=== PATIENT | female | born 1980 | race Caucasian/White ===

== ENCOUNTER 2016-12-13 20:26 | Inpatient (IN) | payer OTHER ==
[2016-12-13 22:26] VITALS: BMI 16.2
--- NOTE | 2016-12-13 22:42 | HP ---
COWS - Scale Resting Pulse: 1= [place] 81-100 Sweatin=Flushed/Facial Moisture Restless Observation: 3= Extraneous Movement Pupil Size: 0= Normal to Room Light Bone or Joint Aches: 2= Severe Diffuse Aches Runny Nose/ Eye Tearin= Runny Nose/Eyes GI Upset > 30mins: 2= Nausea/Diarrhea Tremor Observation: 2= Slight Tremor Visible Yawning Observation: 2= >3x During Session Anxiety or Irritability: 2=Irritable/Anxious Goose Flesh Skin: 0=Smooth Skin COWS Score: 18 Admission ROS S - HPI Chief Complaint: WITHDRAWAL SYMPTOMS Allergies/Adverse Reactions: Allergies Allergy/AdvReac Type Severity Reaction Status Date / Time peanut Allergy Severe Rash Verified 12/13/16 23:12 No Known Drug Allergies Allergy Verified 12/13/16 23:12 NKDA Allergy Uncoded 12/13/16 23:12 History of Present Illness: 36 Y.O. WOMAN WITH AN EXTENSIVE HISTORY OF DRUG AND ALCOHOL DEPENDENCE IS SEEKING DETOX. PMHx: CROHNS DISEASE, ASTHMA, UNDERWEIGHT Exam Limitations: No Limitations - Ebola screening Have you traveled outside of the country in the last 21 days: No (N) Have you had contact with anyone from an Ebola affected area: No Have you been sick,other than usual withdrawal symptoms: No Do you have a fever: No - Review of Systems Constitutional: Chills, Loss of Appetite, Changes in sleep, Unintentional Wgt. Loss EENT: reports: Blurred Vision Respiratory: reports: Wheezing Cardiac: reports: No Symptoms Reported GI: reports: Constipated, Poor Appetite : reports: No Symptoms Reported Musculoskeletal: reports: Back Pain Integumentary: reports: Other (TRACK ARCHER, BILATERAL HANDS) Neuro: reports: Seizure (ETOH RELATED), Tremors Endocrine: reports: No Symptoms Reported Hematology: reports: Anemia Psychiatric: reports: Anxious Other Systems: Reviewed and Negative Patient History - Patient Medical History Hx Anemia: No Hx Asthma: Yes Hx Chronic Obstructive Pulmonary Disease (COPD): Yes Hx Cancer: No Hx Cardiac Disorders: No Hx Congestive Heart Failure: No Hx Hypertension: No Hx Hypercholesterolemia: No Hx Pacemaker: No HX Cerebrovascular Accident: No Hx Seizures: Yes (alcohol related-last episode was more than a year ago) Hx Dementia: No Hx Diabetes: No Hx Gastrointestinal Disorders: Yes Hx Liver Disease: No Hx Genitourinary Disorders: No Hx Sexually Transmitted Disorders: No Hx Renal Disease (ESRD): No Hx Thyroid Disease: No Hx Human Immunodeficiency Virus (HIV): No Hx Hepatitis C: No Hx Depression: Yes Hx Suicide Attempt: No Hx Bipolar Disorder: No Hx Schizophrenia: No - Patient Surgical History Past Surgical History: Yes Hx Neurologic Surgery: No Hx Cataract Extraction: No Hx Cardiac Surgery: No Hx Lung Surgery: No Hx Breast Surgery: No Hx Breast Biopsy: No Hx Abdominal Surgery: Yes Hx Appendectomy: No Hx Cholecystectomy: No Hx Genitourinary Surgery: No Hx Section: Yes (in 08/11/2008) Hx Orthopedic Surgery: No Hx Hysterectomy: No Anesthesia Reaction: No - PPD History Previous Implant?: Yes Documented Results: Negative w/proof Implanted On Prior [facility] Admission?: Yes Date: 07/31/16 Results: 0 mm PPD to be Administered?: No - Reproductive History Patient is a Female of Child Bearing Age (11 -55 yrs old): Yes Last Menstrual Period: 10/11/08 Patient : No - Smoking Cessation Smoking history: Current every day smoker Have you smoked in the past 12 months: Yes Aproximately how many cigarettes per day: 20 Hx Chewing Tobacco Use: Yes Initiated information on smoking cessation: Yes 'Breaking Loose' booklet given: 12/13/16 - Substance & Tx. History Hx Alcohol Use: Yes Hx Substance Use: Yes Substance Use Type: Alcohol, Heroin Hx Substance Use Treatment: Yes (DETOX AND REHAB ) - Substances Abused Alcohol Route: Oral Frequency: No use in 30 days Amount used: 2-3 PINTS OF VODKA Age of first use: 30 Date of Last Use: 10/03/15 Heroin Route: Injection Frequency: Daily Amount used: 3-4 BAGS Age of first use: 36 Date of Last Use: 12/13/16 Family Disease History - Family Disease History Family Disease History: Diabetes: Mother, CA: Father (STOMACH) Admission Physical Exam BHS - Vital Signs Vital Signs: Vital Signs - 24 hr 12/13/16 22:22 Temperature 98.1 F Pulse Rate 81 Respiratory 20 Rate Blood Pressure 101/69 - Physical General Appearance: Yes: Disheveled, Thin, Tremorous, Irritable, Sweating, Anxious HEENTM: Yes: Hearing grossly Normal, Normal ENT Inspection, Normocephalic, Normal Voice Respiratory: Yes: Chest Non-Tender, Lungs Clear, Normal Breath Sounds, No Respiratory Distress, No Accessory Muscle Use Neck: Yes: No masses,lesions,Nodules, Trachea in good position Breast: Yes: Breast Exam Deferred Cardiology: Yes: Regular Rhythm, Regular Rate Abdominal: Yes: Non Tender, Flat, Soft Genitourinary: Yes: Within Normal Limits Back: Yes: Normal Inspection Musculoskeletal: Yes: full range of Motion, Gait Steady, Back pain Extremities: Yes: Normal Inspection, Normal Range of Motion, Non-Tender Neurological: Yes: Alert, Normal Mood/Affect, Normal Response Integumentary: Yes: Track Archer Lymphatic: Yes: Within Normal Limits - Diagnostic (1) Crohns disease Current Visit: Yes Status: Chronic Qualifiers: Gastrointestinal tract location: unspecified location Digestive disease complication type: unspecified complication Qualified Code(s): K50.919 - Crohn's disease, unspecified, with unspecified complications (2) Opioid dependence with withdrawal Current Visit: Yes Status: Chronic (3) Asthma Current Visit: Yes Status: Chronic Qualifiers: Asthma severity: mild persistent Asthma complication type: with status asthmaticus Qualified Code(s): J45.32 - Mild persistent asthma with status asthmaticus (4) COPD (chronic obstructive pulmonary disease) Current Visit: Yes Status: Chronic Qualifiers: COPD type: emphysema Emphysema type: panlobular Qualified Code(s ): J43.1 - Panlobular emphysema (5) Nicotine dependence Current Visit: No Status: Chronic Qualifiers: Nicotine product type: cigarettes Substance use status: uncomplicated Qualified Code(s): F17.210 - Nicotine dependence, cigarettes, uncomplicated (6) Undernutrition Current Visit: Yes Status: Chronic Cleared for Admission [facility] - Detox or Rehab [facility] Level of Care: Medically Managed Detox Regimen/Protocol: Methadone [facility] Breath Alcohol Content Breath Alcohol Content: 0 Urine Pregancy Test - Result Urine Test Results: Negative- NO Line Present Urine Drug Screen - Results Drug Screen Negative: No Urine Drug Screen Results: OPI-Opiates, TCA-Tricyclic Antidepress, OXY-Oxycodone
[2016-12-13] MEDS ORDERED: METHADONE HCL 10 MG TABLET (FOR DETOX USE ONLY) PO ONE ×2 (22:54→23:00)
[2016-12-13] MEDS ORDERED: IBUPROFEN 400 MG TABLET (FP) PO PRN (22:54)
[2016-12-13] MEDS ORDERED: guaiFENesin/D-METHORPHAN HB 10 ML UNIT-DOSE CUPS PO PRN (22:54)
[2016-12-13] MEDS ORDERED: MAGNESIUM CITRATE 300 ML BOTTLE PO PRN (22:54)
[2016-12-13] MEDS ORDERED: diazePAM 5 MG TABLET PO PRN (22:54)
[2016-12-13] MEDS ORDERED: MENTHOL/PHENOL 1 EACH UD MM PRN (22:54)
[2016-12-13] MEDS ORDERED: MAG HYDROX/AL HYDROX/SIMETH 30 ML UNIT-DOSE CUP PO PRN (22:54)
[2016-12-13] MEDS ORDERED: P-EPHED 60MG/TRIPROLIDI 2.5MG TABLET PO PRN (22:54)
[2016-12-13] MEDS ORDERED: ACETAMINOPHEN 325 MG TABLET (FP) PO PRN (22:54)
[2016-12-13] MEDS ORDERED: NICOTINE POLACRILEX 2 MG GUM BC PRN (22:54)
[2016-12-13] MEDS ORDERED: LOPERAMIDE HCL 2 MG CAPSULE PO PRN (22:54)
[2016-12-13] MEDS ORDERED: BISACODYL 5 MG TABLET.DR (FP) PO PRN (22:57)
[2016-12-13] MEDS ORDERED: ONDANSETRON 8 MG TABLET (FP) PO PRN (22:57)
[2016-12-14] MEDS ORDERED: METHADONE HCL 10 MG TABLET (FOR DETOX USE ONLY) PO ONE ×4 (00:51→23:00)
[2016-12-14] MEDS: diazePAM 5 MG TABLET PO PRN ×4 (01:13→22:29)
[2016-12-14] MEDS: diphenhydrAMINE HCL 50 MG CAPSULE PO PRN ×2 (01:14→23:42)
[2016-12-14 09:46] LABS: MCH 26.6 pg (25.7-33.7); MCHC 33.5 g/dl (32.0-36.0); MEAN CELL VOLUME 79.4 fl (80-96); MEAN PLT VOLUME 6.8 fl (7.5-11.1); PLATELET COUNT 336 K/MM3 (134-434); RDW 15.4 % (11.6-15.6); WHITE BLOOD COUNT 6.7 K/mm3 (4.0-10.0)
[2016-12-14] MEDS: PRENATAL VITAMINS W/ FOLIC ACID TABLET (FP) PO SCH (10:15)
[2016-12-14] MEDS: NICOTINE 21 MG/24 HOURS TOPICAL PATCH TD SCH (10:16)
[2016-12-14 10:24] LABS: ALBUMIN 3.3 g/dl (3.4-5.0); ALK PHOS 53 U/L (45-117); ANION GAP 10 (8-16); BILIRUBIN,TOTAL 0.2 mg/dL (0.2-1.0); CALCIUM 9.3 mg/dL (8.5-10.1); CO2 37 mmol/L (21-32); CREATININE 0.5 mg/dL (0.55-1.02); GLUCOSE,RANDOM 79 mg/dL (74-106); SGOT/AST 21 U/L (15-37); SGPT/ALT 16 U/L (12-78); TOT PROT 6.6 g/dl (6.4-8.2)
--- NOTE | 2016-12-14 10:49 | PN ---
BHS COWS - Scale Resting Pulse: 1= [place] 81-100 Sweatin= Chills/Flushing Restless Observation: 1= Difficult to Sit Still Pupil Size: 1= Pupils >than Normal Bone or Joint Aches: 2= Severe Diffuse Aches Runny Nose/ Eye Tearin= Runny Nose/Eyes GI Upset > 30mins: 2= Nausea/Diarrhea Tremor Observation of Outstretched Hands: 2= Slight Tremor Visible Yawning Observation: 1= 1-2x During Session Anxiety or Irritability: 2=Irritable/Anxious Goose Flesh Skin: 3=Piloerection COWS Score: 18 BHS Progress Note (SOAP) Subjective: nausea, sweats, interrupted sleep, anxiety, trmeors, body aches Objective: 12/14/16 10:48 Vital Signs - 24 hr 12/13/16 12/14/16 12/14/16 22:22 00:30 01:31 Temperature 98.1 F 98.1 F Pulse Rate 81 80 Respiratory 20 18 18 Rate Blood Pressure 101/69 100/68 12/14/16 12/14/16 12/14/16 03:30 06:14 09:30 Temperature 97.7 F 98.6 F Pulse Rate 67 83 Respiratory 18 16 20 Rate Blood Pressure 83/57 103/72 Laboratory Tests 12/14/16 12/14/16 07:00 07:00 WBC 6.7 RBC 4.08 Hgb 10.9 D Hct 32.4 MCV 79.4 L MCHC 33.5 RDW 15.4 Plt Count 336 MPV 6.8 L Sodium 138 Chloride 91 L D Carbon Dioxide 37 H D Anion Gap 10 BUN 15 D Creatinine 0.5 L Creat Clearance w eGFR > 60 Random Glucose 79 Calcium 9.3 Total Bilirubin 0.2 D AST 21 ALT 16 Alkaline Phosphatase 53 Total Protein 6.6 Albumin 3.3 L labs still pending, hypoabluminemia Assessment: 12/14/16 10:48 withdrawal sx, anorexia, cachexia and malnutirtion secondary to substance use Plan: cont detox, fluids, food supplements , dietary advice given, dietary consult.
[2016-12-14] MEDS ORDERED: POTASSIUM CHLORIDE TABS 20 MEQ TABLET.ER (FP) PO ONE (11:51)
[2016-12-14] MEDS: FERROUS GLUCONATE 324 MG TAB (FP) PO SCH ×2 (11:59→17:04)
[2016-12-14] MEDS: CYCLOBENZAPRINE HCL 10 MG TABLET (FP) PO SCH ×2 (14:01→22:26)
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
[2016-12-14 20:12] LABS: URINE APPEARANCE SLCLOUDY; URINE BILIRUBIN NEGATIVE (NEGATIVE); URINE BLOOD NEGATIVE (NEGATIVE); URINE COLOR DKYELLOW; URINE GLUCOSE (UA) NEGATIVE (NEGATIVE); URINE KETONE NEGATIVE (NEGATIVE); URINE NITRITE NEGATIVE (NEGATIVE); URINE UROBILINOGEN NEGATIVE E.U./dl (0.2-1.0)
[2016-12-14 20:19] LABS: URINE LEUK ESTERASE TRACE (NEGATIVE); URINE PROTEIN 1+ (NEGATIVE)
[2016-12-14 20:21] LABS: URINE MUCUS RARE; URINE RBC 2 /hpf (0-3); URINE WBC 5 /hpf (3-5)
[2016-12-14] MEDS: POTASSIUM CHLORIDE TABS 20 MEQ TABLET.ER (FP) PO SCH (22:26)
[2016-12-14] MEDS: THIAMINE HCL 100 MG TABLET (FP) PO SCH (22:26)
--- NOTE | 2016-12-14 23:34 | EKG ---
Test Reason : Blood Pressure : / mmHG Vent. Rate : 072 BPM Atrial Rate : 072 BPM P-R Int : 182 ms QRS Dur : 086 ms QT Int : 416 ms P-R-T Axes : 061 058 057 degrees QTc Int : 455 ms NORMAL SINUS RHYTHM NORMAL ECG NO PREVIOUS ECGS AVAILABLE Confirmed by LISSA WINN MD ([id number]) on 12/14/2016 11:34:12 PM Referred By: Confirmed By:LISSA WINN MD
[2016-12-15] MEDS: diphenhydrAMINE HCL 50 MG CAPSULE PO PRN (01:43)
[2016-12-15] MEDS: diazePAM 5 MG TABLET PO PRN ×4 (07:04→22:25)
[2016-12-15] MEDS: FERROUS GLUCONATE 324 MG TAB (FP) PO SCH ×3 (07:04→17:33)
[2016-12-15] MEDS: CYCLOBENZAPRINE HCL 10 MG TABLET (FP) PO SCH (07:04)
[2016-12-15] MEDS ORDERED: METHADONE HCL 10 MG TABLET (FOR DETOX USE ONLY) PO ONE (10:00)
[2016-12-15] MEDS ORDERED: METHADONE HCL 5 MG TABLET (FOR DETOX USE ONLY) PO ONE (10:00)
--- NOTE | 2016-12-15 10:07 | PN ---
BHS COWS - Scale Resting Pulse: 1= [place] 81-100 Sweatin=Flushed/Facial Moisture Restless Observation: 0= Sits Still Pupil Size: 0= Normal to Room Light Bone or Joint Aches: 2= Severe Diffuse Aches Runny Nose/ Eye Tearin= Nasal Congestion GI Upset > 30mins: 0= None Tremor Observation of Outstretched Hands: 2= Slight Tremor Visible Yawning Observation: 2= >3x During Session Anxiety or Irritability: 2=Irritable/Anxious Goose Flesh Skin: 3=Piloerection COWS Score: 15 BHS Progress Note (SOAP) Subjective: irritable agitation tired weak sweats Objective: 12/15/16 10:05 Vital Signs Temperature 97.9 F 12/15/16 09:36 Pulse Rate 97 H 12/15/16 09:36 Respiratory Rate 16 12/15/16 09:36 Blood Pressure 100/69 12/15/16 09:36 O2 Sat by Pulse Oximetry (%) Laboratory Tests 12/14/16 12/14/16 12/14/16 07:00 07:00 07:00 WBC 6.7 RBC 4.08 Hgb 10.9 D Hct 32.4 MCV 79.4 L MCHC 33.5 RDW 15.4 Plt Count 336 MPV 6.8 L Sodium 138 Potassium 2.8 L* D Chloride 91 L D Carbon Dioxide 37 H D Anion Gap 10 BUN 15 D Creatinine 0.5 L Creat Clearance w eGFR > 60 Random Glucose 79 Calcium 9.3 Total Bilirubin 0.2 D AST 21 ALT 16 Alkaline Phosphatase 53 Total Protein 6.6 Albumin 3.3 L Urine Color Urine Appearance Urine pH Ur Specific [place] Urine Protein Urine Glucose (UA) Urine Ketones Urine Blood Urine Nitrite Urine Bilirubin Urine Urobilinogen Ur Leukocyte Esterase Urine RBC Urine WBC Ur Epithelial Cells Urine Mucus RPR Titer Nonreactive 12/14/16 15:00 WBC RBC Hgb Hct MCV MCHC RDW Plt Count MPV Sodium Potassium Chloride Carbon Dioxide Anion Gap BUN Creatinine Creat Clearance w eGFR Random Glucose Calcium Total Bilirubin AST ALT Alkaline Phosphatase Total Protein Albumin Urine Color Dkyellow Urine Appearance Slcloudy Urine pH 9.0 H Ur Specific [place] 1.016 Urine Protein 1+ H Urine Glucose (UA) Negative Urine Ketones Negative Urine Blood Negative Urine Nitrite Negative Urine Bilirubin Negative Urine Urobilinogen Negative Ur Leukocyte Esterase Trace H D Urine RBC 2 Urine WBC 5 Ur Epithelial Cells Rare Urine Mucus Rare RPR Titer k-dur ordered for potassium replacement; repeated labs ordered awake/alert ambulating no acute distress Assessment: 12/15/16 10:06 withdrawal sx Plan: continue detox increase fluids f/u pending labs
[2016-12-15] MEDS: NICOTINE 21 MG/24 HOURS TOPICAL PATCH TD SCH (10:33)
[2016-12-15] MEDS: PRENATAL VITAMINS W/ FOLIC ACID TABLET (FP) PO SCH (10:33)
[2016-12-15] MEDS: POTASSIUM CHLORIDE TABS 20 MEQ TABLET.ER (FP) PO SCH ×2 (10:33→22:25)
[2016-12-15] MEDS: hydrOXYzine PAMOATE 50 MG CAPSULE (FP) PO PRN (10:34)
[2016-12-15] MEDS: MAGNESIUM HYDROX 2400MG/30ML ORAL SUSPENSION 30 ML CUP PO PRN ×2 (10:36→17:32)
[2016-12-15 12:59] LABS: BASOPHIL 0.7 % (0-2.0); EOSINOPHIL 4.2 % (0-4.5); MCH 26.2 pg (25.7-33.7); MCHC 33.1 g/dl (32.0-36.0); MEAN CELL VOLUME 79.1 fl (80-96); NEUTROPHILS 39.8 % (42.8-82.8); PLATELET COUNT 372 K/MM3 (134-434); RDW 15.6 % (11.6-15.6); WHITE BLOOD COUNT 6.5 K/mm3 (4.0-10.0)
[2016-12-15 13:17] LABS: ALBUMIN 3.1 g/dl (3.4-5.0); ALK PHOS 58 U/L (45-117); ANION GAP 8 (8-16); BILIRUBIN,TOTAL 0.2 mg/dL (0.2-1.0); CO2 36 mmol/L (21-32); CREATININE 0.4 mg/dL (0.55-1.02); GLUCOSE,RANDOM 74 mg/dL (74-106); SGOT/AST 19 U/L (15-37); SGPT/ALT 18 U/L (12-78); TOT PROT 6.8 g/dl (6.4-8.2)
[2016-12-15] MEDS ORDERED: diphenhydrAMINE HCL 25 MG CAPSULE (FP) PO ONE (22:24)
[2016-12-15] MEDS: THIAMINE HCL 100 MG TABLET (FP) PO SCH (22:26)
[2016-12-16] MEDS: FERROUS GLUCONATE 324 MG TAB (FP) PO SCH (08:51)
[2016-12-16] MEDS: diazePAM 5 MG TABLET PO PRN ×3 (08:52→22:11)
[2016-12-16] MEDS ORDERED: CYCLOBENZAPRINE HCL 10 MG TABLET (FP) PO PRN (09:37)
--- NOTE | 2016-12-16 09:48 | PN ---
BHS Progress Note (SOAP) Subjective: muscle spasm sweats body aches Objective: 12/16/16 09:48 Vital Signs Temperature 98.2 F 12/16/16 09:28 Pulse Rate 95 H 12/16/16 09:28 Respiratory Rate 18 12/16/16 09:28 Blood Pressure 89/61 12/16/16 09:28 O2 Sat by Pulse Oximetry (%) Laboratory Tests 12/14/16 12/14/16 12/14/16 07:00 07:00 07:00 WBC 6.7 RBC 4.08 Hgb 10.9 D Hct 32.4 MCV 79.4 L MCHC 33.5 RDW 15.4 Plt Count 336 MPV 6.8 L Neutrophils % Lymphocytes % Monocytes % Eosinophils % Basophils % Sodium 138 Potassium 2.8 L* D Chloride 91 L D Carbon Dioxide 37 H D Anion Gap 10 BUN 15 D Creatinine 0.5 L Creat Clearance w eGFR > 60 Random Glucose 79 Calcium 9.3 Total Bilirubin 0.2 D AST 21 ALT 16 Alkaline Phosphatase 53 Total Protein 6.6 Albumin 3.3 L Urine Color Urine Appearance Urine pH Ur Specific [place] Urine Protein Urine Glucose (UA) Urine Ketones Urine Blood Urine Nitrite Urine Bilirubin Urine Urobilinogen Ur Leukocyte Esterase Urine RBC Urine WBC Ur Epithelial Cells Urine Mucus RPR Titer Nonreactive 12/14/16 12/15/16 12/15/16 15:00 10:55 10:55 WBC 6.5 RBC 4.08 Hgb 10.7 Hct 32.3 L MCV 79.1 L MCHC 33.1 RDW 15.6 Plt Count 372 MPV 7.0 L Neutrophils % 39.8 L D Lymphocytes % 44.9 H D Monocytes % 10.4 H D Eosinophils % 4.2 D Basophils % 0.7 Sodium 137 Potassium 3.4 L D Chloride 93 L Carbon Dioxide 36 H Anion Gap 8 BUN 14 Creatinine 0.4 L Creat Clearance w eGFR > 60 Random Glucose 74 Calcium 9.0 Total Bilirubin 0.2 AST 19 ALT 18 Alkaline Phosphatase 58 Total Protein 6.8 Albumin 3.1 L Urine Color Dkyellow Urine Appearance Slcloudy Urine pH 9.0 H Ur Specific [place] 1.016 Urine Protein 1+ H Urine Glucose (UA) Negative Urine Ketones Negative Urine Blood Negative Urine Nitrite Negative Urine Bilirubin Negative Urine Urobilinogen Negative Ur Leukocyte Esterase Trace H D Urine RBC 2 Urine WBC 5 Ur Epithelial Cells Rare Urine Mucus Rare RPR Titer repeated labs pending awake/alert ambulating no acute distress Assessment: 12/16/16 09:49 withdrawal sx Plan: continue detox increase fluids flexiril 5mg prn motrin prn
[2016-12-16] MEDS ORDERED: METHADONE HCL 5 MG TABLET (FOR DETOX USE ONLY) PO ONE ×2 (10:00)
[2016-12-16] MEDS: PRENATAL VITAMINS W/ FOLIC ACID TABLET (FP) PO SCH (10:10)
[2016-12-16] MEDS: hydrOXYzine PAMOATE 50 MG CAPSULE (FP) PO PRN (10:11)
[2016-12-16] MEDS: NICOTINE 21 MG/24 HOURS TOPICAL PATCH TD SCH (10:11)
[2016-12-16] MEDS: POTASSIUM CHLORIDE TABS 20 MEQ TABLET.ER (FP) PO SCH ×2 (10:14→22:12)
[2016-12-16] MEDS: BACITRACIN 0.9 GM PACKET TP SCH ×2 (10:14→22:12)
[2016-12-16 10:20] LABS: CALCIUM 9.6 mg/dL (8.5-10.1)
[2016-12-16 10:22] LABS: CREATININE 0.5 mg/dL (0.55-1.02)
[2016-12-16] MEDS: ALBUTEROL SO4 6.7 GM HFA INHALER IH PRN (15:15)
[2016-12-16] MEDS: diphenhydrAMINE HCL 50 MG CAPSULE PO PRN (22:12)
[2016-12-16] MEDS: MAGNESIUM HYDROX 2400MG/30ML ORAL SUSPENSION 30 ML CUP PO PRN (22:14)
[2016-12-16] MEDS: THIAMINE HCL 100 MG TABLET (FP) PO SCH (22:55)
--- NOTE | 2016-12-17 09:34 | PN ---
S Progress Note (SOAP) Subjective: ALERT,IRRITABLE,ANXIOUS,INTERRUPTED SLEEP.ACHING PAIN Objective: 12/17/16 09:32 12/17/16 09:33 Vital Signs Temperature 97.9 F 12/17/16 06:00 Pulse Rate 62 12/17/16 06:00 Respiratory Rate 16 12/17/16 06:00 Blood Pressure 82/50 12/17/16 06:00 O2 Sat by Pulse Oximetry (%) 12/17/16 09:33 Laboratory Last Values WBC 6.5 K/mm3 (4.0-10.0) 12/15/16 10:55 RBC 4.08 M/mm3 (3.60-5.2) 12/15/16 10:55 Hgb 10.7 GM/dL (10.7-15.3) 12/15/16 10:55 Hct 32.3 % (32.4-45.2) L 12/15/16 10:55 MCV 79.1 fl (80-96) L 12/15/16 10:55 MCHC 33.1 g/dl (32.0-36.0) 12/15/16 10:55 RDW 15.6 % (11.6-15.6) 12/15/16 10:55 Plt Count 372 K/MM3 (134-434) 12/15/16 10:55 MPV 7.0 fl (7.5-11.1) L 12/15/16 10:55 Neutrophils % 39.8 % (42.8-82.8) L D 12/15/16 10:55 Lymphocytes % 44.9 % (8-40) H D 12/15/16 10:55 Monocytes % 10.4 % (3.8-10.2) H D 12/15/16 10:55 Eosinophils % 4.2 % (0-4.5) D 12/15/16 10:55 Basophils % 0.7 % (0-2.0) 12/15/16 10:55 Sodium 136 mmol/L (136-145) 12/16/16 06:45 Potassium 3.9 mmol/L (3.5-5.1) 12/16/16 06:45 Chloride 92 mmol/L (98-107) L 12/16/16 06:45 Carbon Dioxide 38 mmol/L (21-32) H 12/16/16 06:45 Anion Gap 6 (8-16) L 12/16/16 06:45 BUN 14 mg/dL (7-18) 12/16/16 06:45 Creatinine 0.5 mg/dL (0.55-1.02) L D 12/16/16 06:45 Creat Clearance w eGFR > 60 (>60) 12/15/16 10:55 Random Glucose 79 mg/dL (74-106) 12/16/16 06:45 Calcium 9.6 mg/dL (8.5-10.1) 12/16/16 06:45 Total Bilirubin 0.2 mg/dL (0.2-1.0) 12/15/16 10:55 AST 19 U/L (15-37) 12/15/16 10:55 ALT 18 U/L (12-78) 12/15/16 10:55 Alkaline Phosphatase 58 U/L (45-117) 12/15/16 10:55 Total Protein 6.8 g/dl (6.4-8.2) 12/15/16 10:55 Albumin 3.1 g/dl (3.4-5.0) L 12/15/16 10:55 Urine Color Dkyellow 12/14/16 15:00 Urine Appearance Slcloudy 12/14/16 15:00 Urine pH 9.0 (5.0-8.0) H 12/14/16 15:00 Ur Specific [place] 1.016 (1.001-1.035) 12/14/16 15:00 Urine Protein 1+ (NEGATIVE) H 12/14/16 15:00 Urine Glucose (UA) Negative (NEGATIVE) 12/14/16 15:00 Urine Ketones Negative (NEGATIVE) 12/14/16 15:00 Urine Blood Negative (NEGATIVE) 12/14/16 15:00 Urine Nitrite Negative (NEGATIVE) 12/14/16 15:00 Urine Bilirubin Negative (NEGATIVE) 12/14/16 15:00 Urine Urobilinogen Negative E.U./dl (0.2-1.0) 12/14/16 15:00 Ur Leukocyte Esterase Trace (NEGATIVE) H D 12/14/16 15:00 Urine RBC 2 /hpf (0-3) 12/14/16 15:00 Urine WBC 5 /hpf (3-5) 12/14/16 15:00 Ur Epithelial Cells Rare /hpf (FEW) 12/14/16 15:00 Urine Mucus Rare 12/14/16 15:00 RPR Titer Nonreactive (NONREACTIVE) 12/14/16 07:00 Assessment: 12/17/16 09:34 WITHDRAWAL SYMPTOM Plan: CONTINUE DETOX
[2016-12-17] MEDS ORDERED: METHADONE HCL 5 MG TABLET (FOR DETOX USE ONLY) PO ONE (10:00)
[2016-12-17] MEDS ORDERED: METHADONE HCL 10 MG TABLET (FOR DETOX USE ONLY) PO ONE (10:00)
[2016-12-17] MEDS: BACITRACIN 0.9 GM PACKET TP SCH (10:40)
[2016-12-17] MEDS: NICOTINE 21 MG/24 HOURS TOPICAL PATCH TD SCH (10:40)
[2016-12-17] MEDS: hydrOXYzine PAMOATE 50 MG CAPSULE (FP) PO PRN (10:40)
[2016-12-17] MEDS: POTASSIUM CHLORIDE TABS 20 MEQ TABLET.ER (FP) PO SCH (10:40)
[2016-12-17] MEDS: PRENATAL VITAMINS W/ FOLIC ACID TABLET (FP) PO SCH (10:40)
[2016-12-17] MEDS: ALBUTEROL SO4 6.7 GM HFA INHALER IH PRN (11:42)
--- NOTE | 2016-12-17 14:19 | PN ---
S Progress Note Note: patient did not want to complete treatment,signed release ama,did not want to wait
[2016-12-17 14:20] VITALS: BP 97/54; PULSE 107; TEMP 97.3
--- NOTE | 2016-12-17 14:24 | DS ---
[facility] Detox Discharge Summary Admission Date: 12/13/16 Discharge Date: 12/17/16 - History Present History: Alcohol Dependence, Opioid Dependence Additional Comments: patient did not want to complete treatment,signed release ama,did not want to wait,seen by counselor, Pertinent Past History: gerd crohn dissease weight loss seizure - Physical Exam Results Vital Signs: Vital Signs Temperature 96.4 F L 12/17/16 11:15 Pulse Rate 87 12/17/16 11:15 Respiratory Rate 18 12/17/16 11:15 Blood Pressure 127/59 12/17/16 11:15 O2 Sat by Pulse Oximetry (%) Pertinent Admission Physical Exam Findings: withdrawal symptom - Treatment Patient has Accepted a Rehab Referral to: declined - Medication Discharge Medications: Ambulatory Orders Albuterol Sulfate Inhaler - [Ventolin Hfa Inhaler -] 1 - 2 inh PO QID 12/13/16 Zolpidem Tartrate [Ambien] 10 mg PO HS 12/13/16 - Diagnosis (1) Alcohol dependence with uncomplicated withdrawal Current Visit: Yes Status: Acute (2) Nicotine dependence Current Visit: Yes Status: Acute Qualifiers: Nicotine product type: cigarettes Substance use status: uncomplicated Qualified Code(s): F17.210 - Nicotine dependence, cigarettes, uncomplicated (3) Opioid dependence with withdrawal Current Visit: Yes Status: Acute (4) Asthma Current Visit: Yes Status: Chronic Qualifiers: Asthma severity: mild persistent Asthma complication type: with status asthmaticus Qualified Code(s): J45.32 - Mild persistent asthma with status asthmaticus (5) COPD (chronic obstructive pulmonary disease) Current Visit: Yes Status: Chronic Qualifiers: COPD type: emphysema Emphysema type: panlobular Qualified Code(s ): J43.1 - Panlobular emphysema (6) Chronic back pain Current Visit: Yes Status: Chronic Qualifiers: Back pain location: low back pain Back pain laterality: bilateral Sciatica presence: without sciatica Qualified Code(s): M54.5 - Low back pain; G89.29 - Other chronic pain (7) Crohns disease Current Visit: Yes Status: Chronic Qualifiers: Gastrointestinal tract location: unspecified location Digestive disease complication type: unspecified complication Qualified Code(s): K50.919 - Crohn's disease, unspecified, with unspecified complications (8) Weight loss Current Visit: No Status: Acute (9) Seizure Current Visit: No Status: Chronic - AMA Did Patient Leave Against Medical Advice: Yes
[2016-12-18] MEDS ORDERED: METHADONE HCL 5 MG TABLET (FOR DETOX USE ONLY) PO ONE (06:00)
[2016-12-18] MEDS ORDERED: METHADONE HCL 10 MG TABLET (FOR DETOX USE ONLY) PO ONE (10:00)
[2016-12-19] MEDS ORDERED: METHADONE HCL 5 MG TABLET (FOR DETOX USE ONLY) PO ONE (06:00)
== END 2016-12-17 02:22 | disposition left against medical advice (07) | DRG 770 ==
LOC: YASAS 20:26 → Y6N 23:06
PROVIDERS: ADMIT Internal Medicine Addiction Medicine; ATTEND Internal Medicine Addiction Medicine
PROC: HZ2ZZZZ Detoxification Services for Substance Abuse Treatment (ICD-10-PCS; principal; 2016-12-17)
DX: F11.23 Opioid dependence with withdrawal (principal); F10.230 Alcohol dependence with withdrawal, uncomplicated; F17.210 Nicotine dependence, cigarettes, uncomplicated; J45.32 Mild persistent asthma with status asthmaticus; J43.1 Panlobular emphysema; K50.919 Crohn's disease, unspecified, with unspecified complications; M54.5 Low back pain; G89.29 Other chronic pain; Z86.69 Personal history of other diseases of the nervous system and sense organs; R63.4 Abnormal weight loss; Z68.20 Body mass index [BMI] 20.0-20.9, adult
CPT/HCPCS: 36415; 80048; 80053; 81003; 81015; 85025; 85027; 86593; 93005; 93010

== ENCOUNTER 2017-01-24 14:43 | Inpatient (IN) | payer OTHER ==
[2017-01-24 14:53] VITALS: BMI 16.9
--- NOTE | 2017-01-24 14:55 | PDOC ---
Rapid Medical Evaluation Time Seen by Provider: 01/24/17 14:49 Medical Evaluation: Allergies Allergy/AdvReac Type Severity Reaction Status Date / Time peanut Allergy Severe Rash Verified 12/13/16 23:12 No Known Drug Allergies Allergy Verified 12/13/16 23:12 NKDA Allergy Uncoded 12/13/16 23:12 o I have performed a brief in-person evaluation of this patient. o The patient presents with a chief complaint of: abscesses on b/l arms and foot; injects heroin into those sites; wants detox as well o Pertinent physical exam findings: hard, erythematous abscess to b/l antecubital spaces, R worse than L. No streaking. o I have ordered the following: labs, hcg, UA, utox, wound culture o The patient will proceed to the ED for further evaluation.
[2017-01-24 15:55] LABS: URINE MARIJUANA THC NEGATIVE ng/ml (CUTOFF=50)
[2017-01-24 16:01] LABS: ALBUMIN 3.7 g/dl (3.4-5.0); ANION GAP 10 (8-16); CALCIUM 9.2 mg/dL (8.5-10.1); CO2 38 mmol/L (21-32); CREATININE 0.6 mg/dL (0.55-1.02); GLUCOSE,RANDOM 99 mg/dL (74-106); SGPT/ALT 14 U/L (12-78)
[2017-01-24 16:03] LABS: ALK PHOS 66 U/L (45-117); BILIRUBIN,TOTAL 0.3 mg/dL (0.2-1.0); TOT PROT 8.3 g/dl (6.4-8.2)
[2017-01-24 16:04] LABS: SGOT/AST 24 U/L (15-37)
[2017-01-24 16:34] LABS: URINE APPEARANCE CLOUDY; URINE BILIRUBIN NEGATIVE (NEGATIVE); URINE BLOOD NEGATIVE (NEGATIVE); URINE COLOR YELLOW; URINE GLUCOSE (UA) NEGATIVE (NEGATIVE); URINE KETONE NEGATIVE (NEGATIVE); URINE LEUK ESTERASE NEGATIVE (NEGATIVE); URINE NITRITE NEGATIVE (NEGATIVE); URINE PROTEIN NEGATIVE (NEGATIVE); URINE UROBILINOGEN NEGATIVE E.U./dl (0.2-1.0)
[2017-01-24] MEDS ORDERED: CLINDAMYCIN 600MG PREMIX IVPB 50 ML IVPB ONE (16:36)
[2017-01-24 16:39] LABS: BASOPHIL 0.3 % (0-2.0); EOSINOPHIL 2.2 % (0-4.5); MCH 26.6 pg (25.7-33.7); MCHC 32.9 g/dl (32.0-36.0); MEAN CELL VOLUME 80.9 fl (80-96); MEAN PLT VOLUME 7.8 fl (7.5-11.1); NEUTROPHILS 60.3 % (42.8-82.8); PLATELET COUNT 433 K/MM3 (134-434); RDW 15.2 % (11.6-15.6); WHITE BLOOD COUNT 11.2 K/mm3 (4.0-10.0)
[2017-01-24] MEDS ORDERED: VANCOMYCIN 1,000 MG in DEXTROSE 5%-WATER - 250 ML IVPB ONE (16:46)
--- NOTE | 2017-01-24 16:46 | PDOC ---
History of Present Illness - General Chief Complaint: Wound Infection Stated Complaint: INFECTION/ OPEN WOUNDS, ABSCESS (DETOX) Time Seen by Provider: 01/24/17 14:49 History Source: Patient - History of Present Illness Timing/Duration: reports: week Location: reports: extremities Past History - Past Medical History Allergies/Adverse Reactions: Allergies Allergy/AdvReac Type Severity Reaction Status Date / Time peanut Allergy Severe Rash Verified 01/24/17 14:53 No Known Drug Allergies Allergy Verified 01/24/17 14:53 NKDA Allergy Uncoded 01/24/17 14:53 Home Medications: Ambulatory Orders Albuterol Sulfate Inhaler - [Ventolin Hfa Inhaler -] 1 - 2 inh PO QID 12/13/16 Zolpidem Tartrate [Ambien] 30 mg PO HS 12/13/16 Diazepam [Valium] 0 mg PO PRN 01/24/17 Anemia: No Asthma: Yes Cancer: No Cardiac Disorders: No CVA: No COPD: Yes CHF: No Dementia: No Diabetes: No GI Disorders: Yes Disorders: No HTN: No Hypercholesterolemia: No Kidney Stones: No Liver Disease: No Suicide Attempt (Hx): No Seizures: Yes (alcohol related-last episode was more than a year ago) Thyroid Disease: No - Surgical History Abdominal Surgery: Yes Appendectomy: No Cardiac Surgery: No Cholecystectomy: No Lung Surgery: No Neurologic Surgery: No Orthopedic Surgery: No - Reproductive History PID: No - Psycho/Social/Smoking Cessation Hx Anxiety: No Suicidal Ideation: No Smoking History: Never smoked Have you smoked in the past 12 months: Yes Number of Cigarettes Smoked Daily: 20 Information on smoking cessation initiated: No 'Breaking Loose' booklet given: 12/13/16 Hx Alcohol Use: Yes Drug/Substance Use Hx: Yes Substance Use Type: Alcohol, Heroin Hx Substance Use Treatment: Yes (DETOX AND REHAB ) Review of Systems - Review of Systems Constitutional: No: Chills, Fever Integumentary: Yes: Erythema *Physical Exam - Vital Signs Last Vital Signs Temp Pulse Resp BP Pulse Ox 98.4 F 100 H 18 101/76 97 01/24/17 14:46 01/24/17 14:46 01/24/17 14:46 01/24/17 14:46 01/24/17 14:46 - Physical Exam General Appearance: Yes: Appropriately Dressed. No: Apparent Distress HEENT: positive: Normal Voice Neck: positive: Supple Respiratory/Chest: negative: Respiratory Distress Integumentary: positive: Dry, Warm, Other (red, hot tender induration to antecub b/l, R>>L, ?fluctuance on the R, no diffuse joint swelling and FROMI b/ l without any sig pain) Neurologic: positive: Fully Oriented, Alert, Normal Mood/Affect ED Treatment Course - LABORATORY CBC & Chemistry Diagram: 01/24/17 15:30 01/24/17 15:30 - ADDITIONAL ORDERS Additional order review: Laboratory Results 01/24/17 01/24/17 01/24/17 15:30 15:30 15:30 Sodium 137 Potassium 3.2 L Chloride 89 L Carbon Dioxide 38 H Anion Gap 10 BUN 19 H D Creatinine 0.6 Creat Clearance w eGFR > 60 Random Glucose 99 D Calcium 9.2 Total Bilirubin 0.3 D AST 24 D ALT 14 D Alkaline Phosphatase 66 Total Protein 8.3 H D Albumin 3.7 Urine Color Yellow Urine Appearance Cloudy Urine pH 9.0 H Ur Specific [place] 1.027 Urine Protein Negative Urine Glucose (UA) Negative Urine Ketones Negative Urine Blood Negative Urine Nitrite Negative Urine Bilirubin Negative Urine Urobilinogen Negative Ur Leukocyte Esterase Negative Opiates Screen Positive Methadone Screen Negative Barbiturate Screen Negative Phencyclidine Screen Negative Ur Amphetamines Screen Negative MDMA (Ecstasy) Screen Negative Benzodiazepines Screen Negative Cocaine Screen Negative U Marijuana (THC) Screen Negative - RADIOLOGY Radiology Studies Ordered: Category Date Time Status ELBOW-LEFT [RAD] Stat Radiology 01/24/17 16:34 Ordered ELBOW-RIGHT [RAD] Stat Radiology 01/24/17 16:31 Ordered Medical Decision Making - Medical Decision Making 01/24/17 16:43 36 yo F, active heroin user, p/w multiple abscesses to site of needle injection. Pt reports that she developed R elbow abscess 1 week ago and has been squeezing pus from site. At some point developed abscess to L elbow as well. Admits that she continues to inject sites even after abscess formation because she has "ran out of veins". Denies f/c. Pt also req detox See exam IVDU w/ multiple abscesses to site of injection Mild tachycardia in ED w/ red, hot, indurations to antecub fossa of b/l elbows, R>>L, no obvious e/o joint involvement at this time -pain control -IV abx -admit -d/w onsite case manager to possibly give methadone to prevent withdrawal while inhouse 01/24/17 16:48 01/24/17 16:57 01/24/17 17:03 Case d/w Dr Robles who rec placing consult to detox physician Dr Mendez 01/24/17 17:15 01/24/17 18:15 *DC/Admit/Observation/Transfer Diagnosis at time of Disposition: Abscess - Discharge Dispostion Condition at time of disposition: Fair Admit: Yes
[2017-01-24] MEDS ORDERED: PIPERACILLIN/TAZOB 3.375 GM/50 ML PRE-DOCKED IV ONE (16:47)
[2017-01-24] MEDS ORDERED: LORAZEPAM CARPU-JECT 2 MG/ML DISP.SYRIN IVPUSH ONE (17:00)
[2017-01-24] MEDS ORDERED: LORAZEPAM CARPU-JECT 2 MG/ML DISP.SYRIN ONE (17:11)
[2017-01-24] MEDS ORDERED: PIPERACILLIN/TAZOB 3.375 GM 50 ML IVPB ONE (17:12)
[2017-01-24] MEDS ORDERED: VANCOMYCIN 1 GRAM (PRE-DOCKED) 250 ML IVPB ONE (17:12)
[2017-01-24] MEDS ORDERED: KETOROLAC TROMETHAMINE 30 MG/1 ML VIAL IVPUSH ONE (17:16)
[2017-01-24] MEDS ORDERED: POTASSIUM CHLORIDE TABS 20 MEQ TABLET.ER (FP) PO ONE ×2 (18:03→18:27)
[2017-01-24] MEDS ORDERED: KETOROLAC TROMETHAMINE 30 MG/1 ML VIAL ONE (18:08)
--- NOTE | 2017-01-24 19:54 | HP ---
Admitting History and Physical - Primary Care Physician PCP: Dorothy Robles - Admission History of Present Illness: 36 yo F, active heroin user, p/w multiple abscesses to site of needle injection. Pt reports that she developed R elbow abscess 1 week ago and has been squeezing pus from site. At some point developed abscess to L elbow as well. Admits that she continues to inject sites even after abscess formation because she has "ran out of veins". used to take methadone - Past Medical History ...LMP: 10/11/08 - Smoking History Smoking history: Never smoked Have you smoked in the past 12 months: Yes Aproximately how many cigarettes per day: 20 - Alcohol/Substance Use Hx Alcohol Use: Yes History of Substance Use: reports: Heroin Home Medications - Allergies Allergies/Adverse Reactions: Allergies Allergy/AdvReac Type Severity Reaction Status Date / Time peanut Allergy Severe Rash Verified 01/24/17 14:53 No Known Drug Allergies Allergy Verified 01/24/17 14:53 NKDA Allergy Uncoded 01/24/17 14:53 - Home Medications Home Medications: Ambulatory Orders Albuterol Sulfate Inhaler - [Ventolin Hfa Inhaler -] 1 - 2 inh PO QID 12/13/16 Zolpidem Tartrate [Ambien] 30 mg PO HS 12/13/16 Diazepam [Valium] 0 mg PO PRN 01/24/17 Family Disease History - Family Disease History Family Disease History: Diabetes: Mother, CA: Father (STOMACH) Physical Examination Vital Signs: Vital Signs Temperature 98.4 F 01/24/17 14:46 Pulse Rate 91 H 01/24/17 18:21 Respiratory Rate 19 01/24/17 18:21 Blood Pressure 96/58 01/24/17 18:21 O2 Sat by Pulse Oximetry (%) 100 01/24/17 18:21 Constitutional: Yes: Anxious HENT: Yes: Atraumatic Cardiovascular: Yes: Regular Rate and Rhythm Respiratory: Yes: CTA Bilaterally Gastrointestinal: Yes: Normal Bowel Sounds Extremities: Yes: Other (right forearm c/antecubital fossa cellulitis) Neurological: Yes: Alert, Oriented Problem List - Problems (1) Abscess Code(s): L02.91 - CUTANEOUS ABSCESS, UNSPECIFIED (2) Alcohol dependence with uncomplicated withdrawal Code(s): F10.230 - ALCOHOL DEPENDENCE WITH WITHDRAWAL, UNCOMPLICATED (3) Opioid dependence with withdrawal Code(s): F11.23 - OPIOID DEPENDENCE WITH WITHDRAWAL Assessment/Plan Laboratory Tests 01/24/17 01/24/17 01/24/17 15:30 15:30 15:30 WBC 11.2 H D RBC 4.32 Hgb 11.5 Hct 34.9 MCV 80.9 MCHC 32.9 RDW 15.2 Plt Count 433 MPV 7.8 D Neutrophils % 60.3 D Lymphocytes % 30.3 D Monocytes % 6.9 Eosinophils % 2.2 Basophils % 0.3 Sodium 137 Potassium 3.2 L Chloride 89 L Carbon Dioxide 38 H Anion Gap 10 BUN 19 H D Creatinine 0.6 Creat Clearance w eGFR > 60 Random Glucose 99 D Calcium 9.2 Total Bilirubin 0.3 D AST 24 D ALT 14 D Alkaline Phosphatase 66 Total Protein 8.3 H D Albumin 3.7 Urine Color Yellow Urine Appearance Cloudy Urine pH 9.0 H Ur Specific [place] 1.027 Urine Protein Negative Urine Glucose (UA) Negative Urine Ketones Negative Urine Blood Negative Urine Nitrite Negative Urine Bilirubin Negative Urine Urobilinogen Negative Ur Leukocyte Esterase Negative Urine HCG, Qual Negative Opiates Screen Methadone Screen Barbiturate Screen Phencyclidine Screen Ur Amphetamines Screen MDMA (Ecstasy) Screen Benzodiazepines Screen Cocaine Screen U Marijuana (THC) Screen 01/24/17 15:30 WBC RBC Hgb Hct MCV MCHC RDW Plt Count MPV Neutrophils % Lymphocytes % Monocytes % Eosinophils % Basophils % Sodium Potassium Chloride Carbon Dioxide Anion Gap BUN Creatinine Creat Clearance w eGFR Random Glucose Calcium Total Bilirubin AST ALT Alkaline Phosphatase Total Protein Albumin Urine Color Urine Appearance Urine pH Ur Specific [place] Urine Protein Urine Glucose (UA) Urine Ketones Urine Blood Urine Nitrite Urine Bilirubin Urine Urobilinogen Ur Leukocyte Esterase Urine HCG, Qual Opiates Screen Positive Methadone Screen Negative Barbiturate Screen Negative Phencyclidine Screen Negative Ur Amphetamines Screen Negative MDMA (Ecstasy) Screen Negative Benzodiazepines Screen Negative Cocaine Screen Negative U Marijuana (THC) Screen Negative 1.cellulits in ivd user..injects heroine iv abx id consult detox consult prn ativan for withdrawl dvt ppx
[2017-01-24] MEDS ORDERED: ACETAMINOPHEN 325 MG TABLET (FP) PO PRN (19:55)
[2017-01-24] MEDS ORDERED: MAG HYDROX/AL HYDROX/SIMETH 30 ML UNIT-DOSE CUP ONE (21:23)
[2017-01-24 21:26] VITALS: BP 125/75; PULSE 104; TEMP 98.6
[2017-01-24] MEDS ORDERED: HEPARIN NA (PORCINE) 5,000 UNITS/ML 1ML VIAL SQ SCH (22:00)
[2017-01-25] MEDS ORDERED: PIPERACILLIN/TAZOB 3.375 GM 50 ML IVPB SCH (02:00)
[2017-01-25 06:12] LABS: BASOPHIL 0.5 % (0-2.0); MCH 26.7 pg (25.7-33.7); MCHC 33.4 g/dl (32.0-36.0); MEAN PLT VOLUME 7.4 fl (7.5-11.1); NEUTROPHILS 64.2 % (42.8-82.8); PLATELET COUNT 355 K/MM3 (134-434); RDW 15.3 % (11.6-15.6); WHITE BLOOD COUNT 9.6 K/mm3 (4.0-10.0)
[2017-01-25 06:36] LABS: ALBUMIN 3.3 g/dl (3.4-5.0); ALK PHOS 56 U/L (45-117); ANION GAP 11 (8-16); BILIRUBIN,TOTAL 0.2 mg/dL (0.2-1.0); CALCIUM 8.8 mg/dL (8.5-10.1); CO2 37 mmol/L (21-32); CREATININE 0.7 mg/dL (0.55-1.02); GLUCOSE,RANDOM 149 mg/dL (74-106); SGOT/AST 14 U/L (15-37); SGPT/ALT 12 U/L (12-78); TOT PROT 7.3 g/dl (6.4-8.2)
--- NOTE | 2017-01-25 14:50 | DS ---
Physical Examination Vital Signs: Vital Signs Temperature 98.6 F 01/24/17 21:24 Pulse Rate 104 H 01/24/17 21:24 Respiratory Rate 20 01/24/17 21:24 Blood Pressure 125/75 01/24/17 21:24 O2 Sat by Pulse Oximetry (%) 99 01/24/17 21:24 Labs: CBC, BMP 01/25/17 05:25 01/25/17 05:25 Discharge Summary Reason For Visit: ABSCESS Current Active Problems Abscess (Acute) Alcohol dependence with uncomplicated withdrawal (Acute) Condition: Fair - Instructions Disposition: ELOPED - Home Medications Comprehensive Discharge Medication List: Ambulatory Orders Albuterol Sulfate Inhaler - [Ventolin Hfa Inhaler -] 1 - 2 inh PO QID 12/13/16 Zolpidem Tartrate [Ambien] 30 mg PO HS 12/13/16 Diazepam [Valium] 0 mg PO PRN 01/24/17 ELOPED
== END 2017-01-24 23:46 | disposition left against medical advice (07) | DRG 383 ==
LOC: JER 14:43 → JERBED 17:13
PROVIDERS: ADMIT Internal Medicine; ATTEND Internal Medicine
DX: L02.511 Cutaneous abscess of right hand (principal); F10.230 Alcohol dependence with withdrawal, uncomplicated; F11.23 Opioid dependence with withdrawal; L03.113 Cellulitis of right upper limb
CPT/HCPCS: 36415; 71020-TC; 73070-TC-LT; 73070-TC-RT; 80053; 80307; 81003; 84703; 85025; 99282-25

== ENCOUNTER 2017-01-25 01:27 | Inpatient (IN) | payer OTHER ==
--- NOTE | 2017-01-25 01:50 | PDOC ---
*Physical Exam - Vital Signs Last Vital Signs Temp Pulse Resp BP Pulse Ox 98.9 F 86 20 90/60 99 01/25/17 01:44 01/25/17 01:44 01/25/17 01:44 01/25/17 01:44 01/25/17 01:44 Medical Decision Making - Medical Decision Making 01/25/17 01:49 Pt returns for admission after she left from the floor. [employer] called and pt returned with EMS. *DC/Admit/Observation/Transfer Diagnosis at time of Disposition: Abscess, Alcohol dependence with uncomplicated withdrawal - Discharge Dispostion Condition at time of disposition: Stable Admit: Yes
[2017-01-25 02:40] VITALS: BMI 36.3
--- NOTE | 2017-01-25 03:55 | HOSP ---
Subjective - Review of Symptoms Subjective: 01/25/2017 3:30am I was paged by the nurse and informed me that patient is insisting she needs Methadone. Immediately went to assess the patient. Initially patient came in to the ED with abscess on the forearm due to IV drug use. After few hours, she left home with the Heplock. Electric Installer went to her house to bring her back. Patient was sent from the ED to the 6th floor. Patient has been asking for Methadone and Valium for her withdrawals. As per the patient, she went home from the ED and injected heroine as she was in withdrawals. Patient mentions that she is feeling "sick" When asked to describe it, she said "My whole body hurts and I want methadone" Call placed to Dr. Robles and informed her that patient came back to the hospital and is in the 6th floor. Dr. Robles recommended: to admit her in Med- surg/ ID consult, Dr. Niko Shipman consult, Tylenol 650mg Q6H PRN, IV Ativan 1mg Q4H PRN. Spoke with the patient and she insisted to get Methadone or else she would leave the hospital. Explained to her that she needs to wait until morning so we could have Dr. Niko Shipman prescribe Methadone. Patient started crying and shouting saying that she needs medication to help her sleep (Takes Xanax given by her friend); Has COPD takes medication. I explained to the patient that she is admitted in the hospital to get treatment for an abscess, needs IV antibiotics. Patient said " I don't care about my infection when I am withdrawing, all I need is Methadone" When I explained to her that the only thing she can get is Ativan 1mg at this time, she started crying and said it doesn't help her at all. Patient signed the papers to leave against medical advice. Patient has been explained in depth about the risk of leaving including but not limited to sepsis secondary to the abscess, sudden cardiac or even overdose of drugs. Case discussed with Dr. Lewis and Dr. Robles. Physical Examination Vital Signs: Vital Signs Temperature 97.2 F L 01/25/17 01:50 Pulse Rate 89 01/25/17 01:50 Respiratory Rate 10 L 01/25/17 01:50 Blood Pressure 102/70 01/25/17 01:50 O2 Sat by Pulse Oximetry (%) 99 03/14/17 01:44 Visit type - Emergency Visit Emergency Visit: Yes ED Registration Date: 01/25/17 Care time: The patient presented to the Emergency Department on the above date and was hospitalized for further evaluation of their emergent condition. - New Patient This patient is new to me today: Yes Date on this admission: 01/25/17 - Critical Care Critical Care patient: No
[2017-01-25 08:38] VITALS: BP 91/64; PULSE 92; TEMP 98.4
--- NOTE | 2017-01-25 14:51 | DS ---
Physical Examination Vital Signs: Vital Signs Temperature 98.4 F 01/25/17 08:00 Pulse Rate 92 H 01/25/17 08:00 Respiratory Rate 16 01/25/17 08:00 Blood Pressure 91/64 01/25/17 08:00 O2 Sat by Pulse Oximetry (%) 99 01/25/17 01:44 Discharge Summary Reason For Visit: ABSCESS, ETOH DEPENDENCE W UNCOMPLICATED WITHDRAWL Current Active Problems Abscess (Acute) Alcohol dependence with uncomplicated withdrawal (Acute) - Instructions Disposition: AGAINST MEDICAL ADVICE - Home Medications Comprehensive Discharge Medication List: Ambulatory Orders Albuterol Sulfate Inhaler - [Ventolin Hfa Inhaler -] 1 - 2 inh PO QID 12/13/16 Zolpidem Tartrate [Ambien] 30 mg PO HS 12/13/16 Diazepam [Valium] 0 mg PO PRN 01/24/17 signed out ama
== END 2017-01-25 09:39 | disposition left against medical advice (07) | DRG 383 ==
LOC: JER 01:27 → JERBED 01:50 → J6S 02:27
PROVIDERS: ADMIT Internal Medicine; ATTEND Internal Medicine
DX: L02.419 Cutaneous abscess of limb, unspecified (principal); J44.9 Chronic obstructive pulmonary disease, unspecified; F10.230 Alcohol dependence with withdrawal, uncomplicated
CPT/HCPCS: 99281-25

== ENCOUNTER 2017-01-26 16:14 | Inpatient (IN) | payer OTHER ==
[2017-01-26 16:29] VITALS: BMI 16.4
--- NOTE | 2017-01-26 16:33 | PDOC ---
Rapid Medical Evaluation Time Seen by Provider: 01/26/17 16:25 Medical Evaluation: 01/26/17 16:26 I have performed a brief in-person evaluation of this patient. This is a 36 yo RHD F who left the hospital AMA yesterday She has a history of COPD, Asthma, Heroin abuse She was admitted for IV abx due to bilateral anticubetal fossa abscesses She states that she left because the ID doctor was not present to see her yesterday, she was told that she would be sent to detox but couldn't go until medically cleared She left due to pain, and went home She thinks the abscesses have re sealed and are enlarging Pertinent physical exam findings: Bilateral antecubital fossa swelling, mild erythema, tenderness to mild palpation I have ordered the following: cbc, cmp, cultures this patient is a difficult IV access and blood draw The patient will proceed to the ED for further evaluation. Please note, if charts are not merged, pt records under Eduard Conway 01/26/17 16:34
[2017-01-26 17:36] LABS: BASOPHIL 0.5 % (0-2.0); EOSINOPHIL 1.6 % (0-4.5); MCH 26.8 pg (25.7-33.7); MCHC 33.3 g/dl (32.0-36.0); MEAN CELL VOLUME 80.4 fl (80-96); NEUTROPHILS 64.9 % (42.8-82.8); PLATELET COUNT 430 K/MM3 (134-434); RDW 15.4 % (11.6-15.6); WHITE BLOOD COUNT 10.8 K/mm3 (4.0-10.0)
[2017-01-26] MEDS ORDERED: LORazepam 1 MG TABLET PO ONE (17:40)
[2017-01-26] MEDS ORDERED: LORazepam 0.5 MG TABLET ONE (17:43)
--- NOTE | 2017-01-26 17:51 | PDOC ---
History of Present Illness - General History Source: Patient Exam Limitations: No Limitations - History of Present Illness Initial Comments: CHIEF COMPLAINT: 36 y/o afebrile female with PMH COPD, asthma, heroin abuse returned after eloping yesterday for abscesses on her arms. HISTORY OF PRESENT ILLNESS: The patient was admitted on 01/24/17 under the name "Eduard Conway" and she admits this to me today. She was admitted for treatment of b/l antecubital abscesses. She left the hospital after she didn't get Methadone with her heplock in place. The police went to her house and brought her back to the ER, at which time she was admitted again. After being told she wouldn't be able to get Methadone until the morning she signed out AMA. She is here again for abscesses and for detox. Vital signs on arrival are within normal limits. REVIEW OF SYSTEMS: GENERAL/CONSTITUTIONAL: No fever/chills. No weakness. No weight change. HEAD, EYES, EARS, NOSE AND THROAT: No change in vision. No ear pain or discharge. No sore throat. CARDIOVASCULAR: No chest pain or shortness of breath. RESPIRATORY: No cough, wheezing, or hemoptysis. GASTROINTESTINAL: No abd pain, nausea, vomiting, diarrhea. GENITOURINARY: No dysuria, frequency, or change in urination. MUSCULOSKELETAL: No joint or muscle swelling or pain. No neck or back pain. SKIN: +abscesses on both arms. NEUROLOGIC: No headache, vertigo, loss of consciousness, or loss of sensation. PSYCHIATRIC: +anxiety. PHYSICAL EXAM: GENERAL: The patient is awake, alert, and fully oriented, in no acute distress. She is actively crying. HEAD: Normal with no signs of trauma. ENT: Pupils equal, round and reactive to light, extraocular movements intact, sclera anicteric, conjunctiva clear. Neck supple. LUNGS: Clear to auscultation bilaterally. Normal excursion. No respiratory distress or use of accessory muscles. CV: RRR, S1/S2, no MRG. Cap refill < 2 sec. ABDOMEN: Soft, non-distended, non-tender even to deep palpation, no hepatomegaly or splenomegaly, no masses. EXTREMITIES: Normal range of motion, no edema. NEUROLOGICAL: Normal speech, normal gait. CN II-XII grossly intact. PSYCH: Normal mood, normal affect. SKIN: Warm, erythematous, abscesses in b/l antecubital fossa, R worse than left , that are TTP. No streaking. <Zofia Leon - Last Filed: 01/26/17 18:21> <Sherley Gordon - Last Filed: 01/28/17 08:58> - General Chief Complaint: Abscess Boil Stated Complaint: INFECTION Time Seen by Provider: 01/26/17 16:25 Past History - Past Medical History Asthma: Yes COPD: Yes - Psycho/Social/Smoking Cessation Hx Suicidal Ideation: No Smoking History: Current every day smoker Number of Cigarettes Smoked Daily: 20 Information on smoking cessation initiated: No Hx Alcohol Use: No Drug/Substance Use Hx: Yes (HEROIN) <Zofia Leon - Last Filed: 01/26/17 18:21> <Sherley Gordon - Last Filed: 01/28/17 08:58> - Past Medical History Allergies/Adverse Reactions: Allergies Allergy/AdvReac Type Severity Reaction Status Date / Time peanut Allergy Severe Rash Verified 01/24/17 14:53 No Known Drug Allergies Allergy Verified 01/24/17 14:53 NKDA Allergy Uncoded 01/24/17 14:53 Home Medications: Ambulatory Orders Albuterol Sulfate Inhaler - [Ventolin Hfa Inhaler -] 1 - 2 inh PO QID 12/13/16 Zolpidem Tartrate [Ambien] 30 mg PO HS 12/13/16 Diazepam [Valium] 0 mg PO PRN 01/24/17 NK [No Known Home Medication] 01/26/17 *Physical Exam - Vital Signs Last Vital Signs Temp Pulse Resp BP Pulse Ox 98.1 F 84 16 111/64 98 01/26/17 16:25 01/26/17 16:25 01/26/17 16:25 01/26/17 16:25 01/26/17 16:25 <Zofia Leon - Last Filed: 01/26/17 18:21> - Vital Signs Last Vital Signs Temp Pulse Resp BP Pulse Ox 98.4 F 92 H 20 118/66 100 01/28/17 06:46 01/28/17 08:35 01/28/17 08:35 01/28/17 08:35 01/27/17 21:00 <Sherley Gordon - Last Filed: 01/28/17 08:58> ED Treatment Course - LABORATORY CBC & Chemistry Diagram: 01/26/17 17:25 01/26/17 17:25 - ADDITIONAL ORDERS Additional order review: 01/26/17 17:25 RBC 4.17 MCV 80.4 MCHC 33.3 RDW 15.4 MPV 7.0 L Neutrophils % 64.9 Lymphocytes % 26.7 Monocytes % 6.3 Eosinophils % 1.6 Basophils % 0.5 - Medications Given in the ED: ED Medications Discontinued Medications Generic Name Dose Route Start Last Admin Trade Name Freq PRN Reason Stop Dose Admin Lorazepam 1 mg 01/26/17 17:40 01/26/17 17:43 Ativan - PO 01/26/17 17:41 1 mg ONCE ONE Administration <Zofia Leon - Last Filed: 01/26/17 18:21> - LABORATORY CBC & Chemistry Diagram: 01/28/17 06:15 01/27/17 06:20 - ADDITIONAL ORDERS Additional order review: 01/26/17 17:27 Blood Culture - Preliminary Blood - Peripheral Venous NO GROWTH OBTAINED AFTER 24 HOURS, INCUBATION TO CONTINUE FOR 4 DAYS. 01/26/17 17:27 Blood Culture - Preliminary Blood - Peripheral Venous NO GROWTH OBTAINED AFTER 24 HOURS, INCUBATION TO CONTINUE FOR 4 DAYS. 01/26/17 17:25 RBC 4.17 MCV 80.4 MCHC 33.3 RDW 15.4 MPV 7.0 L Neutrophils % 64.9 Lymphocytes % 26.7 Monocytes % 6.3 Eosinophils % 1.6 Basophils % 0.5 - Medications Given in the ED: ED Medications Discontinued Medications Generic Name Dose Route Start Last Admin Trade Name Freq PRN Reason Stop Dose Admin Haloperidol 5 mg 01/27/17 21:37 01/28/17 04:44 Haldol Injection (Fast Acting) - IM 01/27/17 21:38 Not Given ONCE ONE Haloperidol 5 mg 01/27/17 21:37 01/27/17 22:04 Haldol Injection (Fast Acting) - IVPUSH 01/27/17 21:38 5 mg ONCE ONE Administration Vancomycin HCl 250 mls @ 250 mls/hr 01/26/17 20:09 01/26/17 21:59 Vancomycin (Pre-Docked) IVPB 01/26/17 21:08 250 mls/hr ONCE ONE Administration Protocol Lorazepam 1 mg 01/26/17 17:40 01/26/17 17:43 Ativan - PO 01/26/17 17:41 1 mg ONCE ONE Administration Lorazepam 2 mg 01/27/17 08:34 01/27/17 08:51 Ativan Injection - IVPUSH 01/27/17 08:35 2 mg ONCE ONE Administration Lorazepam 2 mg 01/27/17 14:16 01/27/17 14:22 Ativan Injection - IVPUSH 01/27/17 14:17 2 mg ONCE ONE Administration Lorazepam 2 mg 01/27/17 21:37 01/28/17 04:42 Ativan Injection - IM 01/27/17 21:38 Not Given ONCE ONE Lorazepam 2 mg 01/27/17 21:37 01/27/17 22:04 Ativan Injection - IVPUSH 01/27/17 21:38 2 mg ONCE ONE Administration Methadone HCl 10 mg 01/26/17 22:00 01/28/17 01:41 Dolophine - PO 01/27/17 23:59 10 mg TID CAHNO Administration Piperacillin Sod/Tazobactam Sod 3.375 gm 01/26/17 20:10 01/26/17 21:11 Zosyn 3.375gm Ivpb (Pre-Docked) IVPB 01/26/17 20:11 3.375 gm ONCE ONE Administration Protocol Potassium Chloride 20 meq 01/27/17 00:33 01/27/17 01:36 K-Dur - PO 01/27/17 00:34 20 meq ONCE ONE Administration <Sherley Gordon - Last Filed: 01/28/17 08:58> Medical Decision Making - Medical Decision Making A/P: 36 y/o female here for b/l antecubital abscesses secondary to heroin abuse and detox from heroin. THe patient was seen here under the wilmer Conway yesterday and signed out AMA when she didn't get methadone. After a long discussion she states she is willing to stay today with the eventual goal of getting to inpatient detox. Currently [facility] has no female beds. Plan is as follows: 1. Labs 2. PO ativan Spoke with SPORTS PHYSIOTHERAPIST Elli who accepts admission for Dr. Montoya. <Zofia Leon - Last Filed: 01/26/17 18:21> *DC/Admit/Observation/Transfer - Discharge Dispostion Admit: Yes <Zofia Leon - Last Filed: 01/26/17 18:21> - Attestations Physician Attestion: I reviewed the case with the mid-level practitioner and agree with the mid- level practitioner's assessment, diagnosis and disposition. <Sherley Gordon - Last Filed: 01/28/17 08:58> Diagnosis at time of Disposition: Abscess, Heroin abuse - Referrals
[2017-01-26 18:09] LABS: ALBUMIN 3.4 g/dl (3.4-5.0); ANION GAP 13 (8-16); BILIRUBIN,TOTAL 0.2 mg/dL (0.2-1.0); CO2 33 mmol/L (21-32); CREATININE 0.5 mg/dL (0.55-1.02); GLUCOSE,RANDOM 118 mg/dL (74-106); SGOT/AST 19 U/L (15-37); SGPT/ALT 12 U/L (12-78); TOT PROT 7.9 g/dl (6.4-8.2)
[2017-01-26 18:10] LABS: ALK PHOS 65 U/L (45-117)
[2017-01-26] MEDS ORDERED: ACETAMINOPHEN 325 MG TABLET (FP) PO PRN (20:09)
[2017-01-26] MEDS ORDERED: ALBUTEROL SO4 0.083% IH SOL 2.5 MG/3 ML VIAL.NEB. NEB PRN (20:09)
[2017-01-26] MEDS ORDERED: VANCOMYCIN 1 GRAM (PRE-DOCKED) 250 ML IVPB ONE (20:09)
[2017-01-26] MEDS ORDERED: PIPERACILLIN/TAZOB 3.375 GM/50 ML PRE-DOCKED IVPB ONE (20:10)
--- NOTE | 2017-01-26 20:10 | PN ---
<Ivana Regan - Last Filed: 01/26/17 20:10> Teaching Attending Note Name of Resident: Spencer Abarca <Verito Wagoner - Last Filed: 01/26/17 21:45> Teaching Attending Note ATTENDING PHYSICIAN STATEMENT I saw and evaluated the patient. I reviewed the resident's note and discussed the case with the resident. I agree with the resident's findings and plan as documented. SUBJECTIVE: The patient is a 36 yo F with a PMHx of heroin abuse who presents to the ED with multiple abscesses on her arms and feet. The patient states she was seen on 01/24/2017 under the name Eduard Conway and was admitted for treatment of antecubital abscesses. The patient eloped the ED after knowing she will not be receiving Methadone. The patient states she was experiencing withdrawal once she went home and states she used Heroin from her L arm IV site for relief. The patient returns to the ED for detox. PMHx- COPD, Asthma (intubated in the past), Crohn's disease, Insomnia PSHx- C section in 2008 OBJECTIVE: Last Vital Signs Temp Pulse Resp BP Pulse Ox 98.1 F 84 16 111/64 98 01/26/17 16:25 01/26/17 16:25 01/26/17 16:25 01/26/17 16:25 01/26/17 16:25 GENERAL: + Cachectic. + Anxious. Awake, alert, and fully oriented, in no acute distress HEENT: Atraumatic. PERRLA, EOMI. Moist mucosa. No JVD LUNGS: + Coarse bilateral wheezing. No distress, speaks full sentences, clear to auscultation bilaterally HEART: +Tachycardic Regular rhythm, normal S1 and S2, no murmurs, rubs or gallops, peripheral pulses normal and equal bilaterally. ABDOMEN: Soft, nontender, normoactive bowel sounds. No guarding, no rebound. No masses : +Bilateral inguinal erythema at sites of injection. EXTREMITIES: Normal inspection, Normal range of motion, no edema. No clubbing or cyanosis. NEUROLOGICAL: Cranial nerves II through XII grossly intact. Normal speech, normal gait, no focal sensorimotor deficits SKIN: + IV sites on dorsal aspect of bilateral feet. +L antecubital abscess. Warm, Dry, normal turgor, no rashes or lesions noted. CBCD WBC 10.8 K/mm3 (4.0-10.0) H 01/26/17 17:25 RBC 4.17 M/mm3 (3.60-5.2) 01/26/17 17:25 Hgb 11.2 GM/dL (10.7-15.3) 01/26/17 17:25 Hct 33.5 % (32.4-45.2) 01/26/17 17:25 MCV 80.4 fl (80-96) 01/26/17 17:25 MCHC 33.3 g/dl (32.0-36.0) 01/26/17 17:25 RDW 15.4 % (11.6-15.6) 01/26/17 17:25 Plt Count 430 K/MM3 (134-434) 01/26/17 17:25 MPV 7.0 fl (7.5-11.1) L 01/26/17 17:25 CMP Sodium 139 mmol/L (136-145) 01/26/17 17:25 Potassium 3.1 mmol/L (3.5-5.1) L 01/26/17 17:25 Chloride 93 mmol/L (98-107) L 01/26/17 17:25 Carbon Dioxide 33 mmol/L (21-32) H 01/26/17 17:25 Anion Gap 13 (8-16) 01/26/17 17:25 BUN 18 mg/dL (7-18) 01/26/17 17:25 Creatinine 0.5 mg/dL (0.55-1.02) L 01/26/17 17:25 Creat Clearance w eGFR > 60 (>60) 01/26/17 17:25 Calcium 9.0 mg/dL (8.5-10.1) 01/26/17 17:25 Total Bilirubin 0.2 mg/dL (0.2-1.0) 01/26/17 17:25 AST 19 U/L (15-37) 01/26/17 17:25 ALT 12 U/L (12-78) 01/26/17 17:25 Alkaline Phosphatase 65 U/L (45-117) 01/26/17 17:25 Total Protein 7.9 g/dl (6.4-8.2) 01/26/17 17:25 Albumin 3.4 g/dl (3.4-5.0) 01/26/17 17:25 ASSESSMENT AND PLAN: The patient is 36 yo F with a PMHx of heroin abuse who presents with multiple abscesses and cellulitis secondary to IV drug use. -Vancomycin STAT -Zosyn STAT -Methadone 10 mg Q8 hrs -Benadryl 25 mg PO -Nebulizing treatment Q6 hrs-- albuterol -Tylenol 650 PRN -Utox -Consulting Soni and GENARO Patient admitted to Med Surg Documentation prepared by Verito Wagoner, acting as medical program specialist for Ivana Regan MD.
[2017-01-26] MEDS ORDERED: PIPERACILLIN/TAZOB 3.375 GM 50 ML IVPB ONE (21:04)
--- NOTE | 2017-01-26 21:37 | HP ---
CHIEF COMPLAINT: arm pain after ivdu PCP: [facility] HISTORY OF PRESENT ILLNESS: 36 y/o F with PMH of heroin use, COPD, asthma, Crohns presents to the ER for pain in arms in antecubital areas after IVDU. She was at [facility] ER yesterday under another name (Eduard Conway) for same issue but she left/eloped because she felt as though she was in too much pain / withdrawing and tried using heroin IV again yesterday. She states she has been using heroin IV for 1 month and sniffed it in the past before starting IV use. She had subjective fevers a couple of days ago. She would like to detox and is agreeable to detox [employer] to become clean. ER course was notable for: (1) labs, po ativan (2) (3) PAST MEDICAL HISTORY: COPD, asthma, heroin use (IVDU recently for 1 mo), Crohns PAST SURGICAL HISTORY: in 2008 Social History: Smokinppd Alcohol: denies Drugs: heroin Family History: Father: Crohns; Mother: DM Allergies peanut Allergy (Verified 01/26/17 16:29) HOME MEDICATIONS: Home Medications Medication Instructions Recorded NK [No Known Home Medication] 01/26/17 REVIEW OF SYSTEMS CONSTITUTIONAL: fever Absent: chills, diaphoresis, generalized weakness, malaise, loss of appetite, weight change HEENT: Absent: rhinorrhea, nasal congestion, throat pain, throat swelling, difficulty swallowing, mouth swelling, ear pain, eye pain, visual changes CARDIOVASCULAR: Absent: chest pain, syncope, palpitations, irregular heart rate, lightheadedness , peripheral edema RESPIRATORY: Absent: cough, shortness of breath, dyspnea with exertion, orthopnea, wheezing, stridor, hemoptysis GASTROINTESTINAL: Absent: abdominal pain, abdominal distension, nausea, vomiting, diarrhea, constipation, melena, hematochezia GENITOURINARY: Absent: dysuria, frequency, urgency, hesitancy, hematuria, flank pain, genital pain MUSCULOSKELETAL: Absent: myalgia, arthralgia, joint swelling, back pain, neck pain SKIN: b/l swelling at antecubital area Absent: rash, itching, pallor HEMATOLOGIC/IMMUNOLOGIC: Absent: easy bleeding, easy bruising, lymphadenopathy, frequent infections ENDOCRINE: Absent: unexplained weight gain, unexplained weight loss, heat intolerance, cold intolerance NEUROLOGIC: Absent: headache, focal weakness or paresthesias, dizziness, unsteady gait, seizure, mental status changes, bladder or bowel incontinence PSYCHIATRIC: Absent: anxiety, depression, suicidal or homicidal ideation, hallucinations. Vital Signs Temperature 98.5 F 01/26/17 21:48 Pulse Rate 103 H 01/26/17 21:48 Respiratory Rate 18 01/26/17 21:48 Blood Pressure 107/73 01/26/17 21:48 O2 Sat by Pulse Oximetry (%) 98 01/26/17 21:16 PHYSICAL EXAMINATION GENERAL: Awake, alert, and fully oriented, in no acute distress. HEAD: Normal with no signs of trauma. EYES: Pupils equal, round and reactive to light, extraocular movements intact, sclera anicteric, conjunctiva clear. No lid lag. EARS, NOSE, THROAT: Ears normal, nares patent, oropharynx clear without exudates. Moist mucous membranes. NECK: Normal range of motion, supple without lymphadenopathy, JVD, or masses. LUNGS: B/L diffuse coarse breath sounds, wheezing. HEART: Tachycardic, normal S1 and S2 without murmur, rub or gallop. ABDOMEN: Soft, nontender, not distended, normoactive bowel sounds, no guarding, no rebound, no masses. No hepatomegaly or splenomegaly. MUSCULOSKELETAL: Normal range of motion at all joints. No bony deformities or tenderness. LOWER EXTREMITIES: 2+ pulses, warm, well-perfused. No calf tenderness. No peripheral edema. NEUROLOGICAL: Normal speech. Gait not observed. PSYCHIATRIC: Cooperative. Good eye contact. Appropriate mood and affect. SKIN: Warm, dry, normal turgor, b/l antecubital fossa swelling, abscesses, redness, tenderness, contracted skin at left antecubital fossa, multiple track lamas on both arms, L arm deltoid area injection site with swelling and abscess induration, track lamas on both feet, track lamas in femoral/inguinal area. CBCD WBC 10.8 K/mm3 (4.0-10.0) H 01/26/17 17:25 RBC 4.17 M/mm3 (3.60-5.2) 01/26/17 17:25 Hgb 11.2 GM/dL (10.7-15.3) 01/26/17 17:25 Hct 33.5 % (32.4-45.2) 01/26/17 17:25 MCV 80.4 fl (80-96) 01/26/17 17:25 MCHC 33.3 g/dl (32.0-36.0) 01/26/17 17:25 RDW 15.4 % (11.6-15.6) 01/26/17 17:25 Plt Count 430 K/MM3 (134-434) 01/26/17 17:25 MPV 7.0 fl (7.5-11.1) L 01/26/17 17:25 CMP Sodium 139 mmol/L (136-145) 01/26/17 17:25 Potassium 3.1 mmol/L (3.5-5.1) L 01/26/17 17:25 Chloride 93 mmol/L (98-107) L 01/26/17 17:25 Carbon Dioxide 33 mmol/L (21-32) H 01/26/17 17:25 Anion Gap 13 (8-16) 01/26/17 17:25 BUN 18 mg/dL (7-18) 01/26/17 17:25 Creatinine 0.5 mg/dL (0.55-1.02) L 01/26/17 17:25 Creat Clearance w eGFR > 60 (>60) 01/26/17 17:25 Random Glucose 118 mg/dL (74-106) H 01/26/17 17:25 Calcium 9.0 mg/dL (8.5-10.1) 01/26/17 17:25 Total Bilirubin 0.2 mg/dL (0.2-1.0) 01/26/17 17:25 AST 19 U/L (15-37) 01/26/17 17:25 ALT 12 U/L (12-78) 01/26/17 17:25 Alkaline Phosphatase 65 U/L (45-117) 01/26/17 17:25 Total Protein 7.9 g/dl (6.4-8.2) 01/26/17 17:25 Albumin 3.4 g/dl (3.4-5.0) 01/26/17 17:25 Active Medications Acetaminophen (Tylenol -) 650 mg PO Q4H PRN PRN Reason: FEVER OR PAIN Albuterol Sulfate (Ventolin 0.083% Nebulizer Soln -) 1 amp NEB Q6H PRN PRN Reason: SHORT OF BREATH/WHEEZING Diphenhydramine HCl (Benadryl -) 25 mg PO HS PRN PRN Reason: INSOMNIA Last Admin: 01/26/17 22:05 Dose: 25 mg Methadone HCl (Dolophine -) 10 mg PO TID CHANO Last Admin: 01/26/17 21:58 Dose: 10 mg ASSESSMENT/PLAN: 36 y/o F with PMH of heroin use, COPD, asthma, Crohns presents to the ER for pain in arms in antecubital areas after IVDU. Admitted for cellulitis w/ multiple abscesses. -Cellulitis from IV drug use -wbc 10.8, tachy -vanco, zosyn one time ordered -ID consulted (Dr. Shah) -Tylenol 650 mg PO q4h PRN for fever/pain -f/u Echo, BCx -Heroin abuse and dependancy -Methadone 10 mg po tid -Dr. Niko Shipman consulted -f/u Utox -Detox program after hospitalization -COPD, asthma -alb neb q6h prn -Insomnia -benadryl 25 mg po qhs prn for insomnia -FEN -No fluids -monitor lytes, K+ repleted -Regular diet -Dispo: -Monitor on floors Problem List - Problem (1) Abscess Code(s): L02.91 - CUTANEOUS ABSCESS, UNSPECIFIED (2) Heroin abuse Code(s): F11.10 - OPIOID ABUSE, UNCOMPLICATED (3) Cellulitis Code(s): L03.90 - CELLULITIS, UNSPECIFIED (4) IVDU (intravenous drug user) Code(s): F19.90 - OTHER PSYCHOACTIVE SUBSTANCE USE, UNSPECIFIED, UNCOMPLICATED (5) COPD (chronic obstructive pulmonary disease) Code(s): J44.9 - CHRONIC OBSTRUCTIVE PULMONARY DISEASE, UNSPECIFIED (6) Asthma Code(s): J45.909 - UNSPECIFIED ASTHMA, UNCOMPLICATED (7) Insomnia Code(s): G47.00 - INSOMNIA, UNSPECIFIED (8) Hypokalemia Code(s): E87.6 - HYPOKALEMIA (9) Leukocytosis Code(s): D72.829 - ELEVATED WHITE BLOOD CELL COUNT, UNSPECIFIED Visit type - Emergency Visit Emergency Visit: Yes ED Registration Date: 01/26/17 Care time: The patient presented to the Emergency Department on the above date and was hospitalized for further evaluation of their emergent condition. - New Patient This patient is new to me today: Yes Date on this admission: 01/27/17 - Critical Care Critical Care patient: No
[2017-01-26] MEDS: METHADONE HCL 10 MG TABLET PO SCH (21:58)
[2017-01-26] MEDS: diphenhydrAMINE HCL 25 MG CAPSULE (FP) PO PRN (22:05)
[2017-01-27] MEDS ORDERED: POTASSIUM CHLORIDE TABS 20 MEQ TABLET.ER (FP) PO ONE (00:33)
[2017-01-27] MEDS: METHADONE HCL 10 MG TABLET PO SCH ×3 (05:08→22:00)
[2017-01-27 07:42] LABS: BASOPHIL 0.8 % (0-2.0); EOSINOPHIL 4.2 % (0-4.5); MCH 26.7 pg (25.7-33.7); MCHC 33.3 g/dl (32.0-36.0); MEAN CELL VOLUME 80.3 fl (80-96); MEAN PLT VOLUME 7.2 fl (7.5-11.1); NEUTROPHILS 50.5 % (42.8-82.8); PLATELET COUNT 373 K/MM3 (134-434); RDW 15.1 % (11.6-15.6); WHITE BLOOD COUNT 9.2 K/mm3 (4.0-10.0)
[2017-01-27 08:14] LABS: CALCIUM 8.9 mg/dL (8.5-10.1)
[2017-01-27 08:17] LABS: CREATININE 0.5 mg/dL (0.55-1.02)
[2017-01-27] MEDS ORDERED: LORAZEPAM CARPU-JECT 2 MG/ML DISP.SYRIN IVPUSH ONE ×3 (08:34→21:37)
[2017-01-27 11:32] LABS: URINE MARIJUANA THC NEGATIVE ng/ml (CUTOFF=50)
[2017-01-27] MEDS: NICOTINE 21 MG/24 HOURS TOPICAL PATCH TD SCH (14:22)
[2017-01-27] MEDS: HEPARIN NA (PORCINE) 5,000 UNITS/ML 1ML VIAL SQ SCH ×2 (14:23→22:05)
--- NOTE | 2017-01-27 14:44 | CONSULT ---
Consult Consult Specialty:: infectious diseases Reason for Consultation:: abscess at multiple places - History of Present Illness History of Present Illness: 36 yo F, active heroin user, p/w multiple abscesses to site of needle injection. Pt reports that she developed R elbow abscess 1 week ago and has been squeezing pus from site. At some point developed abscess to L elbow as well. Admits that she continues to inject sites even after abscess formation because she has "ran out of veins". used to take methadone patient had signed out on last admission before i saw her now comes with pain and contracture elbows mentions she just took drugs before she came she says she does baout 3 bags uses clean needles - History Source History Provided By: Patient Limitations to Obtaining History: No Limitations - Past Medical History ...LMP: 10/11/08 - Alcohol/Substance Use Hx Alcohol Use: No - Smoking History Smoking history: Current every day smoker Have you smoked in the past 12 months: Yes Aproximately how many cigarettes per day: 20 Home Medications - Allergies Allergies/Adverse Reactions: Allergies Allergy/AdvReac Type Severity Reaction Status Date / Time peanut Allergy Severe Rash Verified 01/24/17 14:53 No Known Drug Allergies Allergy Verified 01/24/17 14:53 NKDA Allergy Uncoded 01/24/17 14:53 - Home Medications Home Medications: Ambulatory Orders Zolpidem Tartrate [Ambien] 30 mg PO HS 12/13/16 Diazepam [Valium] 0 mg PO PRN 01/24/17 Acetaminophen [Tylenol .Regular Strength -] 650 mg PO Q4H PRN #0 tablet Albuterol Sulfate Inhaler - [Ventolin HFA Inhaler -] 2 puff IH Q4H PRN 30 Days 01/28/17 Amoxicillin/Potassium Clav [Augmentin 875-125 Tablet] 1 each PO BID #30 tablet 01/28/17 Clindamycin HCl 600 mg PO Q8H #45 capsule 01/28/17 Family Disease History - Family Disease History Family Disease History: Diabetes: Mother, CA: Father (STOMACH) Review of Systems - Review of Systems Constitutional: reports: Other Eyes: reports: No Symptoms HENT: reports: No Symptoms Neck: reports: No Symptoms Cardiovascular: reports: No Symptoms Respiratory: reports: No Symptoms Gastrointestinal: reports: No Symptoms Genitourinary: reports: No Symptoms Musculoskeletal: reports: Extremity Pain, Joint Swelling, Other Neurological: reports: Other Endocrine: reports: No Symptoms Hematology/Lymphatic: reports: No Symptoms Psychiatric: reports: No Symptoms Physical Exam Vital Signs: Vital Signs Temperature 98.3 F 01/27/17 09:00 Pulse Rate 84 01/27/17 09:00 Respiratory Rate 20 01/27/17 09:00 Blood Pressure 95/61 01/27/17 09:00 O2 Sat by Pulse Oximetry (%) 98 01/26/17 21:16 Constitutional: Yes: Other (failure to thrive) Eyes: Yes: Conjunctiva Clear HENT: Yes: Atraumatic Neck: Yes: Supple, Trachea Midline Cardiovascular: Yes: Regular Rate and Rhythm. No: Murmur Respiratory: Yes: Regular, CTA Bilaterally Gastrointestinal: Yes: Normal Bowel Sounds, Soft Musculoskeletal: Yes: Other Extremities: Yes: Other (multiple needle lamas both on legs and arms and in cubital fossa pus comin out of rt cubital fossa abscess present on other part of upper and also lower ext) Integumentary: Yes: Bruising, Erythema, Skin Tear, Other Wound/Incision: Yes: Draining (rt cubital fossa) Neurological: Yes: Alert, Oriented Psychiatric: Yes: Alert Labs: CBC, BMP 01/27/17 06:20 01/27/17 06:20 Imaging - Results Chest X-ray: Report Reviewed, Image Reviewed Ultrasound: Report Reviewed, Image Reviewed Assessment/Plan Problem List - Problem (1) Abscess Code(s): L02.91 - CUTANEOUS ABSCESS, UNSPECIFIED (2) Heroin abuse Code(s): F11.10 - OPIOID ABUSE, UNCOMPLICATED (3) Cellulitis Code(s): L03.90 - CELLULITIS, UNSPECIFIED (4) IVDU (intravenous drug user) Code(s): F19.90 - OTHER PSYCHOACTIVE SUBSTANCE USE, UNSPECIFIED, UNCOMPLICATED (5) COPD (chronic obstructive pulmonary disease) Code(s): J44.9 - CHRONIC OBSTRUCTIVE PULMONARY DISEASE, UNSPECIFIED (6) Asthma Code(s): J45.909 - UNSPECIFIED ASTHMA, UNCOMPLICATED (7) Insomnia Code(s): G47.00 - INSOMNIA, UNSPECIFIED (8) Hypokalemia Code(s): E87.6 - HYPOKALEMIA (9) Leukocytosis Code(s): D72.829 - ELEVATED WHITE BLOOD CELL COUNT, UNSPECIFIE plan surgery consult homer echo being down now will need abx for some time
--- NOTE | 2017-01-27 14:55 | CONSULT ---
Consult Detox [facility] Reason for Current Admission/Consult: iv heroin dependency - History History of Present Illness: 36 y/o f pt with h/o heroin dependency admitted 2nd abscesses . Pt has attended detox at [facility] most recent admission 10/11/16. - History Source History Provided By: Patient Limitations to Obtaining History: No Limitations - Alcohol/Substance Use Hx Alcohol Use: No Hx Substance Use: Yes Hx Substance Use Treatment: Yes (, [facility]) - Current Drug/Alcohol Use Heroin Route: Injection Frequency: Daily Amount used: 4-5 bundles /d Age of first use: 36 Date of Last Use: 01/26/17 - Past Medical History Gastrointestinal: Yes: Other (crohns disease ) ...LMP: 10/11/08 Psych: Yes: Anxiety - Significant Medical Findings: 36 y/o f pt aox3 but extremely anxious , requesting more methadone and ativan. Antecubital fossa abscesses yasmine COWS - Scale Resting Pulse: 1= OR 81-100 Sweatin=Flushed/Facial Moisture Restless Observation: 3= Extraneous Movement Pupil Size: 1= Pupils >than Normal Bone or Joint Aches: 2= Severe Diffuse Aches Runny Nose/ Eye Tearin= Nasal Congestion GI Upset > 30mins: 0= None Tremor Observation: 1= Tremor Kathleen, Not Seen Yawning Observation: 0= None Anxiety or Irritability: 2=Irritable/Anxious Goose Flesh Skin: 0=Smooth Skin COWS Score: 13 Assessment Plan - Diagnosis (1) Nicotine dependence Status: Acute Qualifiers: Nicotine product type: cigarettes Substance use status: uncomplicated Qualified Code(s): F17.210 - Nicotine dependence, cigarettes, uncomplicated (2) Opioid dependence with withdrawal Status: Chronic (3) Asthma Status: Chronic Qualifiers: Asthma severity: mild persistent Asthma complication type: with status asthmaticus Qualified Code(s): J45.32 - Mild persistent asthma with status asthmaticus (4) Crohns disease Status: Chronic Qualifiers: Gastrointestinal tract location: unspecified location Digestive disease complication type: unspecified complication Qualified Code(s): K50.919 - Crohn's disease, unspecified, with unspecified complications (5) Seizure Status: Chronic (6) Anxiety Status: Chronic - Plan Plan: methadone detox protocol - Medication Detox Regimen/Protocol: Methadone
[2017-01-27] MEDS ORDERED: VANCOMYCIN 1 GRAM (PRE-DOCKED) 250 ML IVPB SCH (15:30)
[2017-01-27] MEDS: PIPERACILLIN/TAZOB 3.375 GM 50 ML IVPB SCH ×2 (16:05→17:31)
--- NOTE | 2017-01-27 16:29 | PN ---
<Reji Mendoza - Last Filed: 01/27/17 17:29> Physical Exam: SUBJECTIVE: Patient seen and examined at bedside Anxious going through heroin withdrawals OBJECTIVE: Vital Signs Period Temp Pulse Resp BP Sys/Mayers Pulse Ox Last 24 Hr 98.0 F-98.5 F 84-103 18-20 95-114/58-73 98-100 GENERAL: The patient is awake, alert, and fully oriented, in no moderate distress. Thin HEAD: Normal with no signs of trauma. NECK: Trachea midline LUNGS: Breath sounds equal, clear to auscultation bilaterally, no wheezes HEART: Regular rate and rhythm, S1, S2 without murmur, rub or gallop. ABDOMEN: Soft, nontender, nondistended, normoactive bowel sounds, NEUROLOGICAL: Cranial nerves II through XII grossly intact PSYCH:anxious SKIN: multiple abscesses left antecubital and right antecubital with minimal erythema surrounding them. Abscess over left shoulder and abscesses over the foot. Multiple track lamas all over body Laboratory Results - last 24 hr 01/27/17 01/27/17 01/27/17 06:20 06:20 10:30 WBC 9.2 RBC 3.91 Hgb 10.5 L Hct 31.4 L MCV 80.3 MCHC 33.3 RDW 15.1 Plt Count 373 MPV 7.2 L Neutrophils % 50.5 D Lymphocytes % 34.1 D Monocytes % 10.4 H Eosinophils % 4.2 D Basophils % 0.8 Sodium 139 Potassium 3.1 L Chloride 94 L Carbon Dioxide 35 H Anion Gap 10 BUN 18 Creatinine 0.5 L Random Glucose 92 D Calcium 8.9 Opiates Screen Positive Methadone Screen Negative Barbiturate Screen Negative Phencyclidine Screen Negative Ur Amphetamines Screen Negative MDMA (Ecstasy) Screen Negative Benzodiazepines Screen Negative Cocaine Screen Negative U Marijuana (THC) Screen Negative Active Medications Generic Name Dose Route Start Last Admin Trade Name Freq PRN Reason Stop Dose Admin Acetaminophen 650 mg 01/26/17 20:09 Tylenol - PO Q4H PRN FEVER OR PAIN Albuterol Sulfate 1 amp 01/26/17 20:09 Ventolin 0.083% Nebulizer Soln - NEB Q6H PRN SHORT OF BREATH/WHEEZING Diazepam 10 mg 01/27/17 14:49 Valium - PO 01/30/17 14:48 Q4H PRN WITHDRAWAL(CONT SUBST) Diphenhydramine HCl 25 mg 01/26/17 20:09 01/26/17 22:05 Benadryl - PO 25 mg HS PRN Administration INSOMNIA Heparin Sodium (Porcine) 5,000 unit 01/27/17 14:00 01/27/17 14:23 Heparin - SQ 5,000 unit TID CHANO Administration Vancomycin HCl 250 mls @ 166.667 mls/hr 01/27/17 15:30 01/27/17 16:05 Vancomycin (Pre-Docked) IVPB 166.667 mls/hr Q24H CHANO Administration Protocol Piperacillin Sod/Tazobactam Sod 50 mls @ 100 mls/hr 01/27/17 15:00 01/27/17 16: 05 Zosyn 3.375gm Ivpb (Pre-Docked) IVPB 100 mls/hr Q8H-IV CHANO Administration Protocol Methadone HCl 10 mg 01/26/17 22:00 01/27/17 13:45 Dolophine - PO 01/27/17 23:59 10 mg TID CHANO Administration Methadone HCl 20 mg 01/28/17 10:00 Dolophine - PO 01/28/17 10:01 ONCE ONE Methadone HCl 10 mg 01/31/17 10:00 Dolophine - PO 01/31/17 10:01 ONCE ONE Methadone HCl 15 mg 01/29/17 10:00 Dolophine - PO 01/29/17 10:01 ONCE ONE Methadone HCl 15 mg 01/30/17 10:00 Dolophine - PO 01/30/17 10:01 ONCE ONE Methadone HCl 5 mg 02/01/17 06:00 Dolophine - PO 02/01/17 06:01 ONCE@0600 ONE Nicotine 21 mg 01/27/17 13:45 01/27/17 14:22 Nicoderm Patch - TD 21 mg DAILY CHANO Administration ASSESSMENT/PLAN: 36 y/o F with PMH of heroin use, COPD, asthma, Crohns presents to the ER for detox and for multiple abscesses and cellulitis Sepsis secondary to multiple abscesses and cellulitis ID consult appreciated on vanco zosyn trend CBC Surgical consult for possible drainage f/u ECHO Heroin abuse/withdrawals and dependancy seen by addiction medicine started on valium and COPD, asthma no active issues no wheezing nebulizers PRN FEN no IVF no electrolyte issues regular diet PPx: HSQ no GI PPx needed no PT consult needed Visit type - Emergency Visit Emergency Visit: Yes ED Registration Date: 01/26/17 Care time: The patient presented to the Emergency Department on the above date and was hospitalized for further evaluation of their emergent condition. - New Patient This patient is new to me today: Yes Date on this admission: 01/27/17 - Critical Care Critical Care patient: No <Kelton Akhtar - Last Filed: 01/27/17 22:00> Physical Exam: SUBJECTIVE: Patient seen and examined OBJECTIVE: Vital Signs Period Temp Pulse Resp BP Sys/Mayers Pulse Ox Last 24 Hr 96.8 F-98.4 F 84-96 20-20 95-102/58-61 100 GENERAL: The patient is awake, alert, and fully oriented, in no acute distress. HEAD: Normal with no signs of trauma. EYES: PERRL, extraocular movements intact, sclera anicteric, conjunctiva clear. No ptosis. ENT: Ears normal, nares patent, oropharynx clear without exudates, moist mucous membranes. NECK: Trachea midline, full range of motion, supple. LUNGS: Breath sounds equal, clear to auscultation bilaterally, no wheezes, no crackles, no accessory muscle use. HEART: Regular rate and rhythm, S1, S2 without murmur, rub or gallop. ABDOMEN: Soft, nontender, nondistended, normoactive bowel sounds, no guarding, no rebound, no hepatosplenomegaly, no masses. EXTREMITIES: 2+ pulses, warm, well-perfused, no edema. NEUROLOGICAL: Cranial nerves II through XII grossly intact. Normal speech, gait not observed. PSYCH: Normal mood, normal affect. SKIN: Warm, dry, normal turgor, no rashes or lesions noted Laboratory Results - last 24 hr 01/27/17 01/27/17 01/27/17 06:20 06:20 10:30 WBC 9.2 RBC 3.91 Hgb 10.5 L Hct 31.4 L MCV 80.3 MCHC 33.3 RDW 15.1 Plt Count 373 MPV 7.2 L Neutrophils % 50.5 D Lymphocytes % 34.1 D Monocytes % 10.4 H Eosinophils % 4.2 D Basophils % 0.8 Sodium 139 Potassium 3.1 L Chloride 94 L Carbon Dioxide 35 H Anion Gap 10 BUN 18 Creatinine 0.5 L Random Glucose 92 D Calcium 8.9 Opiates Screen Positive Methadone Screen Negative Barbiturate Screen Negative Phencyclidine Screen Negative Ur Amphetamines Screen Negative MDMA (Ecstasy) Screen Negative Benzodiazepines Screen Negative Cocaine Screen Negative U Marijuana (THC) Screen Negative Active Medications Generic Name Dose Route Start Last Admin Trade Name Freq PRN Reason Stop Dose Admin Acetaminophen 650 mg 01/26/17 20:09 Tylenol - PO Q4H PRN FEVER OR PAIN Albuterol Sulfate 1 amp 01/26/17 20:09 Ventolin 0.083% Nebulizer Soln - NEB Q6H PRN SHORT OF BREATH/WHEEZING Diazepam 10 mg 01/27/17 14:49 01/27/17 17:45 Valium - PO 01/30/17 14:48 10 mg Q4H PRN Administration WITHDRAWAL(CONT SUBST) Diphenhydramine HCl 25 mg 01/26/17 20:09 01/26/17 22:05 Benadryl - PO 25 mg HS PRN Administration INSOMNIA Heparin Sodium (Porcine) 5,000 unit 01/27/17 14:00 01/27/17 14:23 Heparin - SQ 5,000 unit TID CHANO Administration Vancomycin HCl 250 mls @ 166.667 mls/hr 01/27/17 15:30 01/27/17 16:05 Vancomycin (Pre-Docked) IVPB 166.667 mls/hr Q24H CHANO Administration Protocol Piperacillin Sod/Tazobactam Sod 50 mls @ 100 mls/hr 01/27/17 15:00 01/27/17 17: 31 Zosyn 3.375gm Ivpb (Pre-Docked) IVPB Not Given Q8H-IV CHANO Protocol Methadone HCl 10 mg 01/26/17 22:00 01/27/17 13:45 Dolophine - PO 01/27/17 23:59 10 mg TID CHANO Administration Methadone HCl 20 mg 01/28/17 10:00 Dolophine - PO 01/28/17 10:01 ONCE ONE Methadone HCl 10 mg 01/31/17 10:00 Dolophine - PO 01/31/17 10:01 ONCE ONE Methadone HCl 15 mg 01/29/17 10:00 Dolophine - PO 01/29/17 10:01 ONCE ONE Methadone HCl 15 mg 01/30/17 10:00 Dolophine - PO 01/30/17 10:01 ONCE ONE Methadone HCl 5 mg 02/01/17 06:00 Dolophine - PO 02/01/17 06:01 ONCE@0600 ONE Nicotine 21 mg 01/27/17 13:45 01/27/17 14:22 Nicoderm Patch - TD 21 mg DAILY CHANO Administration ASSESSMENT/PLAN: 36 y/o F with PMH of heroin use, COPD, asthma, Crohns presents to the ER for detox and for multiple abscesses and cellulitis # Acute sepsis secondary to multiple abscesses and cellulitis , ID consult appreciated .on [facility] Surgical consult for possible drainage , f/u ECHO #Heroin abuse/withdrawals and dependancy started on valium and COPD, asthma no active issues no wheezing nebulizers PRN DvT px: SCDs
[2017-01-27] MEDS: diazePAM 5 MG TABLET PO PRN (17:45)
--- NOTE | 2017-01-27 21:15 | PN ---
Progress Note (short form) - Note Progress Note: surgery pt seen and examined. full consult dictated. 36f, IVDA, presents with poss absess b/l antecubital and left deltoid region. On exam both antecubital abscesses are minmal without fluctuance and without need of surgical drainage. hard 3cm lump on deltoid is fat necrosis/calcification and not an abscess. recommend warm compresses to b/l arms. Please reconsult If signficanly increases in size with fluctuance.
[2017-01-27] MEDS ORDERED: LORAZEPAM CARPU-JECT 2 MG/ML DISP.SYRIN IM ONE (21:37)
[2017-01-27] MEDS ORDERED: HALOPERIDOL LACTATE 5 MG/ML IVPUSH ONE (21:37)
[2017-01-27] MEDS ORDERED: HALOPERIDOL LACTATE 5 MG/ML IM ONE (21:37)
--- NOTE | 2017-01-27 21:58 | PN ---
Teaching Attending Note Name of Resident: Reji Mendoza ATTENDING PHYSICIAN STATEMENT I saw and evaluated the patient. I reviewed the resident's note and discussed the case with the resident. I agree with the resident's findings and plan as documented. Vital Signs Temperature 96.8 F L 01/27/17 17:30 Pulse Rate 96 H 01/27/17 17:30 Respiratory Rate 20 01/27/17 17:30 Blood Pressure 100/60 01/27/17 17:30 O2 Sat by Pulse Oximetry (%) 100 01/27/17 09:00 CBCD WBC 9.2 K/mm3 (4.0-10.0) 01/27/17 06:20 RBC 3.91 M/mm3 (3.60-5.2) 01/27/17 06:20 Hgb 10.5 GM/dL (10.7-15.3) L 01/27/17 06:20 Hct 31.4 % (32.4-45.2) L 01/27/17 06:20 MCV 80.3 fl (80-96) 01/27/17 06:20 MCHC 33.3 g/dl (32.0-36.0) 01/27/17 06:20 RDW 15.1 % (11.6-15.6) 01/27/17 06:20 Plt Count 373 K/MM3 (134-434) 01/27/17 06:20 MPV 7.2 fl (7.5-11.1) L 01/27/17 06:20 CMP Sodium 139 mmol/L (136-145) 01/27/17 06:20 Potassium 3.1 mmol/L (3.5-5.1) L 01/27/17 06:20 Chloride 94 mmol/L (98-107) L 01/27/17 06:20 Carbon Dioxide 35 mmol/L (21-32) H 01/27/17 06:20 Anion Gap 10 (8-16) 01/27/17 06:20 BUN 18 mg/dL (7-18) 01/27/17 06:20 Creatinine 0.5 mg/dL (0.55-1.02) L 01/27/17 06:20 Creat Clearance w eGFR > 60 (>60) 01/26/17 17:25 Random Glucose 92 mg/dL (74-106) D 01/27/17 06:20 Calcium 8.9 mg/dL (8.5-10.1) 01/27/17 06:20 Total Bilirubin 0.2 mg/dL (0.2-1.0) 01/26/17 17:25 AST 19 U/L (15-37) 01/26/17 17:25 ALT 12 U/L (12-78) 01/26/17 17:25 Alkaline Phosphatase 65 U/L (45-117) 01/26/17 17:25 Total Protein 7.9 g/dl (6.4-8.2) 01/26/17 17:25 Albumin 3.4 g/dl (3.4-5.0) 01/26/17 17:25 Current Medications Generic Name Dose Route Start Last Admin Trade Name Freq PRN Reason Stop Dose Admin Acetaminophen 650 mg 01/26/17 20:09 Tylenol - PO Q4H PRN FEVER OR PAIN Albuterol Sulfate 1 amp 01/26/17 20:09 Ventolin 0.083% Nebulizer Soln - NEB Q6H PRN SHORT OF BREATH/WHEEZING Diazepam 10 mg 01/27/17 14:49 01/27/17 17:45 Valium - PO 01/30/17 14:48 10 mg Q4H PRN Administration WITHDRAWAL(CONT SUBST) Diphenhydramine HCl 25 mg 01/26/17 20:09 01/26/17 22:05 Benadryl - PO 25 mg HS PRN Administration INSOMNIA Heparin Sodium (Porcine) 5,000 unit 01/27/17 14:00 01/27/17 14:23 Heparin - SQ 5,000 unit TID CHANO Administration Vancomycin HCl 250 mls @ 166.667 mls/hr 01/27/17 15:30 01/27/17 16:05 Vancomycin (Pre-Docked) IVPB 166.667 mls/hr Q24H CHANO Administration Protocol Piperacillin Sod/Tazobactam Sod 50 mls @ 100 mls/hr 01/27/17 15:00 01/27/17 17: 31 Zosyn 3.375gm Ivpb (Pre-Docked) IVPB Not Given Q8H-IV CHANO Protocol Methadone HCl 10 mg 01/26/17 22:00 01/27/17 13:45 Dolophine - PO 01/27/17 23:59 10 mg TID CHANO Administration Methadone HCl 20 mg 01/28/17 10:00 Dolophine - PO 01/28/17 10:01 ONCE ONE Methadone HCl 10 mg 01/31/17 10:00 Dolophine - PO 01/31/17 10:01 ONCE ONE Methadone HCl 15 mg 01/29/17 10:00 Dolophine - PO 01/29/17 10:01 ONCE ONE Methadone HCl 15 mg 01/30/17 10:00 Dolophine - PO 01/30/17 10:01 ONCE ONE Methadone HCl 5 mg 02/01/17 06:00 Dolophine - PO 02/01/17 06:01 ONCE@0600 ONE Nicotine 21 mg 01/27/17 13:45 01/27/17 14:22 Nicoderm Patch - TD 21 mg DAILY CHANO Administration Home Medications Medication Instructions Recorded Albuterol Sulfate Inhaler - 1 - 2 inh PO QID 12/13/16 [Ventolin Hfa Inhaler -] Zolpidem Tartrate [Ambien] 30 mg PO HS 12/13/16 Diazepam [Valium] 0 mg PO PRN 01/24/17 NK [No Known Home Medication] 01/26/17 ASSESSMENT AND PLAN: 36 y/o F with PMH of heroin use, COPD, asthma, Crohns presents to the ER for detox and for multiple abscesses and cellulitis # Acute sepsis secondary to multiple abscesses and cellulitis of Upper extremities and lower ; ID on the case ,On Vancomycin and Zosyn will continue f/u ECHO # Heroin abuse/withdrawals and dependancy; will consult Dr.Pierre Shipman ,on valium ,Methadone # Hx of COPD/asthma stable ,nebulizers PRN DVT Px: Heparin
--- NOTE | 2017-01-27 22:24 | HOSP ---
Subjective - Review of Symptoms Events since last encounter: Paged to see patient due to pt being agitated and combative towards staff at approximately 9:00 pm. Pt stated that she "just doesnt feel good" and "wants to go home" and that she is currently "withdrawing". She also wanted to leave hospital and go to [facility] across the [address] as well and come back to the hospital. She was overheard by staff speaking to someone on phone earlier that she had IV access and would like to shoot up heroin. Pt was informed that is not a possibility. At the time she stated that she was "withdrawing" she was seen by me sitting on the bed comfortably and eating gummy candies. I explained to the patient that because of her extensive drug use and current detox management that what she was feeling was a part of detoxing. Pt was then seen by Dr. Regan who explained to the patient that the symptoms that she was complaining about were withdrawal symptoms and she was offered her next dose of valium and methadone earlier. Pt refused medications and stated that she was not feeling well and therefore would like to go home and detox at home. Pt was counseled and educated on her treatment plan and pt continued to remain agitated with irrational behavior and was deemed to lack decision making capacity and was placed on 1:1 with psych consult requested in the morning. Throughout the encounter the pt was loud, yelling at staff and physicians and attempted to leave room multiple times and intermittently was on her phone trying to coordinate access to drugs. Condition 10 was called and sheryl restraints were required as patient would not calm down. Sheryl was attached with great difficulty due to pt's combativeness. Pt was given haldol 5mg and ativan 2mg IV right before sheryl was applied. Consult for psych (Sheryl) has been placed to assess for decision making capacity in AM. Physical Examination Vital Signs: Vital Signs Temperature 96.8 F L 01/27/17 17:30 Pulse Rate 96 H 01/27/17 17:30 Respiratory Rate 20 01/27/17 17:30 Blood Pressure 100/60 01/27/17 17:30 O2 Sat by Pulse Oximetry (%) 100 01/27/17 09:00 Labs: CBC, BMP 01/27/17 06:20 01/27/17 06:20 Visit type - Emergency Visit Emergency Visit: Yes ED Registration Date: 01/26/17 Care time: The patient presented to the Emergency Department on the above date and was hospitalized for further evaluation of their emergent condition. - New Patient This patient is new to me today: No - Critical Care Critical Care patient: No
--- NOTE | 2017-01-28 00:35 | CONS ---
DATE OF CONSULTATION: DATE OF DICTATION: 01/27/2017 REASON FOR CONSULTATION: Bilateral antecubital arm abscesses and a lump in her left deltoid region. This is a request of Dr. Akhtar. BRIEF HISTORY: This is a 36-year-old female IV drug abuser using injectable heroin who presented to [facility] requesting detox. While in the emergency room, she apparently absconded with an IV in place and then returned. She complained while here that she had 2 abscesses in her antecubital area that when she squeezes she will occasionally see a drop of pus as well as an abscess that she states is located in her left deltoid region. Patient was admitted, started on intravenous antibiotics, and a surgical consultation was requested. PAST MEDICAL HISTORY: Significant for COPD and heroin abuse. PAST SURGICAL HISTORY: Nil. ALLERGIES: PEANUTS. HOME MEDICATIONS: Include albuterol and heroin. REVIEW OF SYSTEMS: General: Denies fatigue or malaise. Cardiac: Denies chest pain or palpitations. Respiratory: Denies shortness of breath, wheeze. Gastrointestinal: No nausea or vomiting. Genitourinary: Denies dysuria. Musculoskeletal: Denies joint pain. Skin: Admits to abscesses in her antecubital areas and her left deltoid region. PHYSICAL EXAMINATION: General: This is an edgy, anxious, 36-year-old female who is thin in no distress. Vital signs: She is afebrile. Her vital signs are stable. HEENT: Head is normocephalic. Sclerae anicteric. Neck: Supple. Chest: Clear. Abdomen: Soft. Skin: She has 2 areas of chronic scar tissue located in her antecubital areas. There is perhaps a small amount of pus that can be expressed on squeezing, but there is no fluctuance noted. There is also no cellulitic changes. In her left deltoid region in the subcutaneous area, there is noted to be a 3-cm soft tissue mass that is firm, that is consistent with fat necrosis followed by calcification. This is not fluctuant, is not consistent with an abscess . LABORATORY: On review of laboratory, white blood cell count is normal at 9.2 without a shift. ASSESSMENT: A 36-year-old female with history of anterior venous drug abuse with 2 antecubital abscesses that are chronic and small, both less than 1 cm in size, and they are not fluctuant. At this point, they would not benefit from a surgical incision and drainage. Recommend continued warm compresses and a short course of antibiotics. As far as the lump in her left arm, this is not an abscess, and there is no further treatment required. If the abscesses on her arms change by increase in size significantly or becoming more fluctuant, please reconsult for possible incision and drainage. DO SALVADOR [id number]
[2017-01-28] MEDS: METHADONE HCL 10 MG TABLET PO SCH (01:41)
[2017-01-28] MEDS: diphenhydrAMINE HCL 25 MG CAPSULE (FP) PO PRN (01:46)
[2017-01-28] MEDS: PIPERACILLIN/TAZOB 3.375 GM 50 ML IVPB SCH ×2 (02:20→09:36)
[2017-01-28] MEDS: HEPARIN NA (PORCINE) 5,000 UNITS/ML 1ML VIAL SQ SCH (06:33)
[2017-01-28] MEDS: diazePAM 5 MG TABLET PO PRN (06:57)
--- NOTE | 2017-01-28 08:06 | PN ---
Teaching Attending Note Name of Resident: Reji Mendoza ATTENDING PHYSICIAN STATEMENT I saw and evaluated the patient. I reviewed the resident's note and discussed the case with the resident. I agree with the resident's findings and plan as documented. Vital Signs Temperature 98.4 F 01/28/17 06:46 Pulse Rate 88 01/28/17 06:46 Respiratory Rate 18 01/28/17 06:46 Blood Pressure 91/57 01/28/17 06:46 O2 Sat by Pulse Oximetry (%) 100 01/27/17 21:00 CBCD WBC 9.2 K/mm3 (4.0-10.0) 01/27/17 06:20 RBC 3.91 M/mm3 (3.60-5.2) 01/27/17 06:20 Hgb 10.5 GM/dL (10.7-15.3) L 01/27/17 06:20 Hct 31.4 % (32.4-45.2) L 01/27/17 06:20 MCV 80.3 fl (80-96) 01/27/17 06:20 MCHC 33.3 g/dl (32.0-36.0) 01/27/17 06:20 RDW 15.1 % (11.6-15.6) 01/27/17 06:20 Plt Count 373 K/MM3 (134-434) 01/27/17 06:20 MPV 7.2 fl (7.5-11.1) L 01/27/17 06:20 CMP Sodium 139 mmol/L (136-145) 01/27/17 06:20 Potassium 3.1 mmol/L (3.5-5.1) L 01/27/17 06:20 Chloride 94 mmol/L (98-107) L 01/27/17 06:20 Carbon Dioxide 35 mmol/L (21-32) H 01/27/17 06:20 Anion Gap 10 (8-16) 01/27/17 06:20 BUN 18 mg/dL (7-18) 01/27/17 06:20 Creatinine 0.5 mg/dL (0.55-1.02) L 01/27/17 06:20 Creat Clearance w eGFR > 60 (>60) 01/26/17 17:25 Random Glucose 92 mg/dL (74-106) D 01/27/17 06:20 Calcium 8.9 mg/dL (8.5-10.1) 01/27/17 06:20 Total Bilirubin 0.2 mg/dL (0.2-1.0) 01/26/17 17:25 AST 19 U/L (15-37) 01/26/17 17:25 ALT 12 U/L (12-78) 01/26/17 17:25 Alkaline Phosphatase 65 U/L (45-117) 01/26/17 17:25 Total Protein 7.9 g/dl (6.4-8.2) 01/26/17 17:25 Albumin 3.4 g/dl (3.4-5.0) 01/26/17 17:25 Current Medications Generic Name Dose Route Start Last Admin Trade Name Freq PRN Reason Stop Dose Admin Acetaminophen 650 mg 01/26/17 20:09 Tylenol - PO Q4H PRN FEVER OR PAIN Albuterol Sulfate 1 amp 01/26/17 20:09 Ventolin 0.083% Nebulizer Soln - NEB Q6H PRN SHORT OF BREATH/WHEEZING Diazepam 10 mg 01/27/17 14:49 01/28/17 06:57 Valium - PO 01/30/17 14:48 10 mg Q4H PRN Administration WITHDRAWAL(CONT SUBST) Diphenhydramine HCl 25 mg 01/26/17 20:09 01/28/17 01:46 Benadryl - PO 25 mg HS PRN Administration INSOMNIA Heparin Sodium (Porcine) 5,000 unit 01/27/17 14:00 01/28/17 06:33 Heparin - SQ 5,000 unit TID CHANO Administration Vancomycin HCl 250 mls @ 166.667 mls/hr 01/27/17 15:30 01/27/17 16:05 Vancomycin (Pre-Docked) IVPB 166.667 mls/hr Q24H CHANO Administration Protocol Piperacillin Sod/Tazobactam Sod 50 mls @ 100 mls/hr 01/27/17 15:00 01/28/17 02: 20 Zosyn 3.375gm Ivpb (Pre-Docked) IVPB 100 mls/hr Q8H-IV CHANO Administration Protocol Methadone HCl 20 mg 01/28/17 10:00 Dolophine - PO 01/28/17 10:01 ONCE ONE Methadone HCl 10 mg 01/31/17 10:00 Dolophine - PO 01/31/17 10:01 ONCE ONE Methadone HCl 15 mg 01/29/17 10:00 Dolophine - PO 01/29/17 10:01 ONCE ONE Methadone HCl 15 mg 01/30/17 10:00 Dolophine - PO 01/30/17 10:01 ONCE ONE Methadone HCl 5 mg 02/01/17 06:00 Dolophine - PO 02/01/17 06:01 ONCE@0600 ONE Nicotine 21 mg 01/27/17 13:45 01/27/17 14:22 Nicoderm Patch - TD 21 mg DAILY CHANO Administration Home Medications Medication Instructions Recorded Albuterol Sulfate Inhaler - 1 - 2 inh PO QID 12/13/16 [Ventolin Hfa Inhaler -] Zolpidem Tartrate [Ambien] 30 mg PO HS 12/13/16 Diazepam [Valium] 0 mg PO PRN 01/24/17 NK [No Known Home Medication] 01/26/17 ASSESSMENT AND PLAN: 36 y/o F with PMH of heroin use, COPD, asthma, Crohns presents to the ER for detox and for multiple abscesses and cellulitis # Acute sepsis with secondary to multiple abscesses and cellulitis of Upper and lower extremities ; ID on the case ,On Vancomycin and Zosyn will continue ; ECHO result trace regurgitation. Patient wants to sign against medical advice, will give her Rx for augmentin and Clindamycin to continue as an outpatient if she decides to sign against medical advice but we will not discharge her. # Heroin abuse/withdrawals and dependency; Dr.Pierre Shpiman on the case continue valium and Methadone as an inpatient # Hx of COPD/asthma stable ,nebulizers PRN DVT Px: Heparin
[2017-01-28 08:23] LABS: MCH 26.7 pg (25.7-33.7); MCHC 32.8 g/dl (32.0-36.0); MEAN CELL VOLUME 81.4 fl (80-96); MEAN PLT VOLUME 7.3 fl (7.5-11.1); PLATELET COUNT 403 K/MM3 (134-434); WHITE BLOOD COUNT 10.6 K/mm3 (4.0-10.0)
[2017-01-28 08:36] VITALS: BP 118/66; PULSE 92
[2017-01-28] MEDS: NICOTINE 21 MG/24 HOURS TOPICAL PATCH TD SCH (09:34)
[2017-01-28] MEDS ORDERED: METHADONE HCL 10 MG TABLET PO ONE (10:00)
[2017-01-28] MEDS ORDERED: ALBUTEROL SO4 6.7 GM HFA INHALER IH PRN (10:43)
[2017-01-28 11:46] VITALS: TEMP 97.4
--- NOTE | 2017-01-28 12:50 | DS ---
Physical Exam: SUBJECTIVE: Patient seen and examined at bedside wants to go home OBJECTIVE: Vital Signs Period Temp Pulse Resp BP Sys/Mayers Pulse Ox Last 24 Hr 96.8 F-98.4 F 88-96 18-20 91-118/57-66 100 PHYSICAL EXAM GENERAL: The patient is awake, alert, and fully oriented, in no moderate distress. Thin HEAD: Normal with no signs of trauma. NECK: Trachea midline LUNGS: Breath sounds equal, clear to auscultation bilaterally, no wheezes HEART: Regular rate and rhythm, S1, S2 without murmur, rub or gallop. ABDOMEN: Soft, nontender, nondistended, normoactive bowel sounds, NEUROLOGICAL: Cranial nerves II through XII grossly intact PSYCH:anxious crying SKIN: multiple abscesses left antecubital and right antecubital with minimal erythema surrounding them. Abscess over left shoulder and abscesses over the foot. Multiple track lamas all over body LABS Laboratory Results - last 24 hr 01/28/17 06:15 WBC 10.6 H RBC 3.95 Hgb 10.5 L Hct 32.1 L MCV 81.4 MCHC 32.8 RDW 15.0 Plt Count 403 MPV 7.3 L HOSPITAL COURSE: Date of Admission:01/26/17 Date of Discharge: 01/28/17 36F admitted with heroin withdrawals presented to the hospital with multiple abscesses from long term care phlebotomist IV drug abuse. SHe was seen by ID and started on vanco Zosyn. Seen by surgery no drainage needed. Also seen by addiction medicine and started on methadone detox protocol. States she is uncomfortable and not being treated well here and is leaving AMA. Risks benefits explained including but not limited to sepsis relapse of drug use overdosing. Signed out against medical advice. Sent prescriptions for antibiotics and albuterol inhaler. advised to follow up with PMD. Spoke to patient for over an hour trying to convince her to stay and go through the detox. Minutes to complete discharge: 45 Discharge Summary Reason For Visit: ABSCESS/HEROIN ABUSE Current Active Problems Abscess (Acute) Cellulitis (Acute) Drug withdrawal (Acute) Hypokalemia (Acute) IVDU (intravenous drug user) (Acute) Leukocytosis (Acute) Nicotine dependence (Acute) Opioid dependence with withdrawal (Chronic) Condition: Guarded - Instructions Diet, Activity, Other Instructions: pt Signed out Against Medical advise. Pt to follow up with MD as advised Referrals: STAFF,NOT ON [Primary Care Provider] - 1 Week Tushar Mendez MD [Staff Physician] - Disposition: AGAINST MEDICAL ADVICE - Home Medications Comprehensive Discharge Medication List: Ambulatory Orders Zolpidem Tartrate [Ambien] 30 mg PO HS 12/13/16 Diazepam [Valium] 0 mg PO PRN 01/24/17 Acetaminophen [Tylenol .Regular Strength -] 650 mg PO Q4H PRN #0 tablet Albuterol Sulfate Inhaler - [Ventolin HFA Inhaler -] 2 puff IH Q4H PRN 30 Days 01/28/17 Amoxicillin/Potassium Clav [Augmentin 875-125 Tablet] 1 each PO BID #30 tablet 01/28/17 Clindamycin HCl 600 mg PO Q8H #45 capsule 01/28/17 This patient is new to me today: No Emergency Visit: Yes ED Registration Date: 01/26/17 Care time: The patient presented to the Emergency Department on the above date and was hospitalized for further evaluation of their emergent condition. Critical Care patient: No - Discharge Referral Referred to [facility] No
[2017-01-29] MEDS ORDERED: METHADONE HCL 5 MG TABLET PO ONE (10:00)
[2017-01-30] MEDS ORDERED: METHADONE HCL 5 MG TABLET PO ONE (10:00)
[2017-01-31] MEDS ORDERED: METHADONE HCL 10 MG TABLET PO ONE (10:00)
[2017-02-01] MEDS ORDERED: METHADONE HCL 5 MG TABLET PO ONE (06:00)
== END 2017-01-28 13:09 | disposition left against medical advice (07) | DRG 720 ==
LOC: JER 16:14 → MERGE 18:20 → JERBED 18:20 → J8W 21:28
PROVIDERS: ADMIT Internal Medicine; ATTEND Internal Medicine
PROC: HZ81ZZZ Medication Management for Substance Abuse Treatment, Methadone Maintenance (ICD-10-PCS; principal; 2017-01-28)
DX: A41.9 Sepsis, unspecified organism (principal); L02.414 Cutaneous abscess of left upper limb; L02.413 Cutaneous abscess of right upper limb; L03.114 Cellulitis of left upper limb; L03.113 Cellulitis of right upper limb; J44.9 Chronic obstructive pulmonary disease, unspecified; J45.909 Unspecified asthma, uncomplicated; F17.210 Nicotine dependence, cigarettes, uncomplicated; F11.10 Opioid abuse, uncomplicated; F41.9 Anxiety disorder, unspecified; R64 Cachexia; Z68.1 Body mass index [BMI] 19.9 or less, adult; K50.90 Crohn's disease, unspecified, without complications; G47.00 Insomnia, unspecified; E87.6 Hypokalemia; R62.7 Adult failure to thrive; J45.32 Mild persistent asthma with status asthmaticus; L03.116 Cellulitis of left lower limb; L03.115 Cellulitis of right lower limb; R45.1 Restlessness and agitation; F11.23 Opioid dependence with withdrawal
CPT/HCPCS: 36415; 80048; 80053; 80307; 85025; 85027; 87040; 93306-TC; 99285-25; J1644

== ENCOUNTER 2017-08-29 10:28 | Inpatient (IN) | payer OTHER ==
[2017-08-29] MEDS ORDERED: SODIUM CHLORIDE 1,000 ML IV STA (11:04)
[2017-08-29] MEDS ORDERED: ONDANSETRON 4 MG/2 ML VIAL IVPUSH ONE (11:04)
[2017-08-29] MEDS ORDERED: VANCOMYCIN 1,000 MG in DEXTROSE 5%-WATER - 250 ML IVPB ONE (11:07)
[2017-08-29] MEDS ORDERED: VANCOMYCIN 1 GRAM (PRE-DOCKED) 250 ML IVPB ONE (11:11)
[2017-08-29] MEDS ORDERED: cloNIDine HCL 0.1 MG TABLET PO ONE (11:11)
--- NOTE | 2017-08-29 11:14 | PDOC ---
History of Present Illness - General History Source: Patient - History of Present Illness Timing/Duration: other Severity: severe Associated Symptoms: reports: malaise, nausea/vomiting. denies: fever/chills <Altagracia Bennett - Last Filed: 08/29/17 13:23> <Bear Wilder - Last Filed: 09/01/17 07:22> - General Chief Complaint: Wound Stated Complaint: WITHDRAWAL Time Seen by Provider: 08/29/17 10:49 Past History - Past Medical History Anemia: No Asthma: Yes Cancer: No Cardiac Disorders: No CVA: No COPD: Yes CHF: No Dementia: No Diabetes: No GI Disorders: Yes Disorders: No HTN: No Hypercholesterolemia: No Kidney Stones: No Liver Disease: No Seizures: Yes (alcohol related-last episode was more than a year ago) Thyroid Disease: No Other medical history: IV drug abuse - Surgical History Abdominal Surgery: Yes Appendectomy: No Cardiac Surgery: No Cholecystectomy: No Lung Surgery: No Neurologic Surgery: No Orthopedic Surgery: No - Reproductive History PID: No - Suicide/Smoking/Psychosocial Hx Smoking History: Current every day smoker Have you smoked in the past 12 months: Yes Number of Cigarettes Smoked Daily: 20 Information on smoking cessation initiated: Yes 'Breaking Loose' booklet given: 08/29/17 Hx Alcohol Use: No Drug/Substance Use Hx: Yes (heroin) Substance Use Type: Heroin Hx Substance Use Treatment: Yes (, [facility]) <Altagracia Bennett - Last Filed: 08/29/17 13:23> <Bear Wilder - Last Filed: 09/01/17 07:22> - Past Medical History Allergies/Adverse Reactions: Allergies Allergy/AdvReac Type Severity Reaction Status Date / Time peanut Allergy Severe Rash Verified 08/29/17 10:59 Home Medications: Ambulatory Orders Albuterol Sulfate Inhaler - [Ventolin HFA Inhaler -] 2 puff IH Q4H PRN 30 Days 01/28/17 Review of Systems - Review of Systems Constitutional: Yes: Malaise. No: Chills, Fever Respiratory: No: Shortness of Breath Cardiac (ROS): No: Chest Pain, Palpitations ABD/GI: Yes: Nausea. No: Vomiting Integumentary: Yes: Erythema Neurological: No: Headache, Dizziness <Altagracia Bennett - Last Filed: 08/29/17 13:23> *Physical Exam - Vital Signs Last Vital Signs Temp Pulse Resp BP Pulse Ox 98.5 F 94 H 18 99/74 100 08/29/17 10:50 08/29/17 10:50 08/29/17 10:50 08/29/17 10:50 08/29/17 10:50 - Physical Exam Comments: 08/29/17 11:20 cachectic frail, chronically ill appearing female sitting up on stretcher, appears uncomfortable 08/29/17 11:20 General Appearance: Yes: Appropriately Dressed HEENT: positive: EOMI, ARELI (no pupil dilatation), Normal Voice Neck: positive: Supple Respiratory/Chest: positive: Lungs Clear, Normal Breath Sounds. negative: Respiratory Distress Cardiovascular: positive: Regular Rate, S1, S2 Gastrointestinal/Abdominal: positive: Soft. negative: Tender Integumentary: positive: Dry, Warm, Other (multiple small pustules with surrounding erythema to lateral aspect of deltoid region b/l, warm and very tender to touch) Neurologic: positive: Fully Oriented, Alert <Altagracia Bennett - Last Filed: 08/29/17 13:23> - Vital Signs Last Vital Signs Temp Pulse Resp BP Pulse Ox 98.5 F 94 H 18 99/74 100 08/29/17 10:50 08/29/17 10:50 08/29/17 10:50 08/29/17 10:50 08/29/17 10:50 <Bear Wilder - Last Filed: 09/01/17 07:22> Heart Score/ECG Review - ECG Impressions Comment:: 08/29/17 13:52 Twelve-lead EKG was performed and reviewed by me. There is normal sinus rhythm with a normal rate. rate of 77 The axis is normal. The intervals are normal. There is normal R wave progression There are no ST or T wave abnormalities. Impression: Normal twelve-lead EKG <Bear Wilder - Last Filed: 09/01/17 07:22> ED Treatment Course - LABORATORY CBC & Chemistry Diagram: 08/29/17 11:45 08/29/17 12:20 - RADIOLOGY Radiology Studies Ordered: Category Date Time Status CHEST X-RAY PORTABLE* [RAD] Stat Radiology 08/29/17 11:04 Ordered <Altagracia Bennett - Last Filed: 08/29/17 13:23> - LABORATORY CBC & Chemistry Diagram: 08/31/17 06:30 08/29/17 12:20 - ADDITIONAL ORDERS Additional order review: Laboratory Results 08/29/17 08/29/17 08/29/17 11:45 11:45 11:38 Sodium Cancelled Potassium Cancelled Chloride Cancelled Carbon Dioxide Cancelled Anion Gap Cancelled BUN Cancelled Creatinine Cancelled Creat Clearance w eGFR Cancelled Random Glucose Cancelled Calcium Cancelled Total Bilirubin Cancelled AST Cancelled ALT Cancelled Alkaline Phosphatase Cancelled Total Protein Cancelled Albumin Cancelled Serum , Qual Cancelled Urine Color Urine Appearance Urine pH Urine Protein Urine Glucose (UA) Urine Ketones Urine Blood Urine Nitrite Urine Bilirubin Urine Urobilinogen Urine RBC Urine WBC Ur Epithelial Cells Urine Bacteria Urine Mucus Urine HCG, Qual Opiates Screen Positive Methadone Screen Negative Barbiturate Screen Negative Phencyclidine Screen Negative Ur Amphetamines Screen Negative MDMA (Ecstasy) Screen Negative Benzodiazepines Screen Negative Cocaine Screen Negative U Marijuana (THC) Screen Negative 08/29/17 08/29/17 11:36 11:03 Sodium Potassium Chloride Carbon Dioxide Anion Gap BUN Creatinine Creat Clearance w eGFR Random Glucose Calcium Total Bilirubin AST ALT Alkaline Phosphatase Total Protein Albumin Serum , Qual Urine Color Yellow Urine Appearance Clear Urine pH 7.5 Urine Protein 1+ H Urine Glucose (UA) Negative Urine Ketones 1+ H Urine Blood Negative Urine Nitrite Negative Urine Bilirubin Negative Urine Urobilinogen 2.0 H Urine RBC 4 Urine WBC 9 Ur Epithelial Cells Rare Urine Bacteria Rare Urine Mucus Rare Urine HCG, Qual Negative Opiates Screen Methadone Screen Barbiturate Screen Phencyclidine Screen Ur Amphetamines Screen MDMA (Ecstasy) Screen Benzodiazepines Screen Cocaine Screen U Marijuana (THC) Screen 08/29/17 11:45 RBC 4.93 D MCV 69.4 L MCHC 31.0 L RDW 18.2 H D MPV 7.4 L Neutrophils % 52.5 Lymphocytes % 38.5 Monocytes % 7.5 Eosinophils % 0.9 Basophils % 0.6 - Medications Given in the ED: ED Medications Discontinued Medications Generic Name Dose Route Start Last Admin Trade Name Freq PRN Reason Stop Dose Admin Clonidine 0.1 mg 08/29/17 11:11 08/29/17 12:34 Catapres - PO 08/29/17 11:12 Not Given ONCE ONE Sodium Chloride 1,000 mls @ 1,000 mls/hr 08/29/17 11:04 08/29/17 11:32 Normal Saline - IV 08/29/17 12:03 1,000 mls/hr ASDIR STA Administration Vancomycin HCl 1,000 mg/ 250 mls @ 250 mls/hr 08/29/17 11:07 08/29/17 12:23 Dextrose IVPB 08/29/17 12:06 250 mls/hr ONCE ONE Administration Protocol Ketorolac Tromethamine 30 mg 08/29/17 11:32 08/29/17 11:41 Toradol Injection - IVPUSH 08/29/17 11:33 30 mg ONCE ONE Administration Ondansetron HCl 4 mg 08/29/17 11:04 08/29/17 11:32 Zofran Injection IVPUSH 08/29/17 11:05 4 mg ONCE ONE Administration Piperacillin Sod/Tazobactam Sod 3.375 gm 08/29/17 12:00 08/29/17 11:46 Zosyn 3.375gm Ivpb (Pre-Docked) IVPB 08/29/17 12:01 3.375 gm ONCE ONE Administration <Bear Wilder - Last Filed: 09/01/17 07:22> Medical Decision Making - Medical Decision Making 08/29/17 11:12 37-year-old female, history of COPD, asthma, former ETOH abuse, heroin abuse, status post admission for upper extremity abscesses secondary to long-term IV drug use, here with erythema, pain and swelling over deltoid area bilaterally that worsened today as per pt. Denies any fever or chills. Also reports that she is currently withdrawing from heroin. States last use was yesterday morning. Complaining of generalized body aches with restlessness nausea and malaise. No chest pain, sob or palpitations. States she was refused inpatient detox multiple times recently 2/2 poor health/low weight as per pt. As per chart , review, last inpt detox was 09/29 See exam B/l UE cellulitis w/ multiple abscesses to site of chronic IV drug use s/p admission for similar presentation 01/28-started on vanc and zosyn as rec by ID, no I&D needed per surgery, pt left AMA Afebrile but hypotensive w/ multiple small abscesses/pustules w/ surrounding erythema, warmth and sig ttp to deltoid region b/l, no e/o joint involvement at this time -IV abx -labs -admit Opiod withdrawal Unable to administer clonidine 2/2 low BP, will not give methadone at this time as d/w ED attg -supportive care 08/29/17 11:58 08/29/17 12:27 Case d/w Dr Robles and patient admitted. MRajendra requesting that I consult Dr Shha of ID 08/29/17 12:57 08/29/17 12:59 08/29/17 13:23 <Altagracia Bennett - Last Filed: 08/29/17 13:23> - Medical Decision Making 08/29/17 12:46 The patient was seen and evaluated in conjunction with GAMAL Bennett under my direct supervision, ancillary studies were reviewed. I independently interviewed and evaluated the patient and I agree with the plan as outlined by GAMAL Bennett . 37y F presenting with worsening rash/infection to her upper arms (she 'pops' with IM injection of heroin), endorse nausea, generalized weakness and bodyaches c/w with withdrawal. on exam pt has an indurated patch with pustules on her upper deltoids without obvious fluctuance. likely cellulitis vs early abscess. pt will need to be admitted for iv abx and symptomatic relief of withdrawal, pt interested in detox <Bear Wilder - Last Filed: 09/01/17 07:22> *DC/Admit/Observation/Transfer - Discharge Dispostion Admit: Yes <Altagracia Bennett - Last Filed: 08/29/17 13:23> <Bear Wilder - Last Filed: 09/01/17 07:22> Diagnosis at time of Disposition: Cellulitis and abscess of upper arm and forearm Drug withdrawal Qualifiers: Substance type: opioid Qualified Code(s): F11.23 - Opioid dependence with withdrawal - Discharge Dispostion Condition at time of disposition: Fair
[2017-08-29] MEDS ORDERED: cloNIDine HCL 0.1 MG TABLET ONE (11:19)
[2017-08-29] MEDS ORDERED: KETOROLAC TROMETHAMINE 30 MG/1 ML VIAL IVPUSH ONE (11:32)
[2017-08-29] MEDS ORDERED: KETOROLAC TROMETHAMINE 30 MG/1 ML VIAL ONE (11:35)
[2017-08-29] MEDS ORDERED: PIPERACILLIN/TAZOB 3.375 GM 50 ML IVPB ONE ×2 (11:35→17:55)
[2017-08-29 11:50] LABS: PH,URINE 7.5 (5.0-8.0); URINE APPEARANCE CLEAR; URINE BILIRUBIN NEGATIVE (NEGATIVE); URINE BLOOD NEGATIVE (NEGATIVE); URINE COLOR YELLOW; URINE GLUCOSE (UA) NEGATIVE (NEGATIVE); URINE KETONE 1+ (NEGATIVE); URINE NITRITE NEGATIVE (NEGATIVE)
[2017-08-29 11:51] LABS: URINE PROTEIN 1+ (NEGATIVE)
[2017-08-29] MEDS ORDERED: PIPERACILLIN/TAZOB 3.375 GM/50 ML PRE-DOCKED IVPB ONE (12:00)
[2017-08-29] MEDS ORDERED: PIPERACIL/TAZOB 3.375 GM 3.375 GM/50 ML PREMIX IVPB ONE (12:00)
[2017-08-29 12:01] LABS: URINE BACTERIA RARE /hpf (NONE SEEN); URINE MUCUS RARE; URINE RBC 4 /hpf (0-3); URINE WBC 9 /hpf (3-5)
[2017-08-29 12:02] LABS: URINE MARIJUANA THC NEGATIVE ng/ml (CUTOFF=50)
[2017-08-29 12:04] LABS: BASOPHIL 0.6 % (0-2.0); EOSINOPHIL 0.9 % (0-4.5); MCH 21.5 pg (25.7-33.7); MEAN CELL VOLUME 69.4 fl (80-96); MEAN PLT VOLUME 7.4 fl (7.5-11.1); NEUTROPHILS 52.5 % (42.8-82.8); PLATELET COUNT 559 K/MM3 (134-434); RDW 18.2 % (11.6-15.6); WHITE BLOOD COUNT 6.5 K/mm3 (4.0-10.0)
[2017-08-29 12:58] LABS: ALBUMIN 2.7 g/dl (3.4-5.0); ALK PHOS 113 U/L (45-117); ANION GAP 7 (8-16); BILIRUBIN,TOTAL 0.3 mg/dL (0.2-1.0); CALCIUM 8.2 mg/dL (8.5-10.1); CO2 31 mmol/L (21-32); CREATININE 0.5 mg/dL (0.55-1.02); GLUCOSE,RANDOM 81 mg/dL (74-106); SGPT/ALT 21 U/L (12-78); TOT PROT 7.8 g/dl (6.4-8.2)
[2017-08-29 12:59] LABS: SGOT/AST 33 U/L (15-37)
--- NOTE | 2017-08-29 13:16 | HP ---
Admitting History and Physical - Primary Care Physician PCP: Dorothy Robles - Admission History of Present Illness: 37-year-old female, history of COPD, asthma, former ETOH abuse, heroin abuse, status post admission for upper extremity abscesses secondary to long-term IV drug use, here with erythema, pain and swelling over deltoid area bilaterally that worsened today as per pt. Denies any fever or chills. Also reports that she is currently withdrawing from heroin. States last use was yesterday morning. Complaining of generalized body aches with restlessness nausea and malaise. No chest pain, sob or palpitations. States she was refused inpatient detox multiple times recently 2/2 poor health/low weight as per pt. As per chart , r - Past Medical History Pulmonary: Yes: Asthma, COPD Gastrointestinal: Yes: Other (crohns disease ) ...LMP: 10/11/08 Psych: Yes: Anxiety - Smoking History Smoking history: Current every day smoker Have you smoked in the past 12 months: Yes Aproximately how many cigarettes per day: 20 - Alcohol/Substance Use Hx Alcohol Use: No Home Medications - Allergies Allergies/Adverse Reactions: Allergies Allergy/AdvReac Type Severity Reaction Status Date / Time peanut Allergy Severe Rash Verified 08/29/17 10:59 - Home Medications Home Medications: Ambulatory Orders Albuterol Sulfate Inhaler - [Ventolin HFA Inhaler -] 2 puff IH Q4H PRN 30 Days 01/28/17 Family Disease History - Family Disease History Family Disease History: Diabetes: Mother, CA: Father (STOMACH) Physical Examination Vital Signs: Vital Signs Temperature 98.5 F 08/29/17 10:50 Pulse Rate 94 H 08/29/17 10:50 Respiratory Rate 18 08/29/17 10:50 Blood Pressure 99/74 08/29/17 10:50 O2 Sat by Pulse Oximetry (%) 100 08/29/17 10:50 Constitutional: Yes: Anxious HENT: Yes: Atraumatic Cardiovascular: Yes: Regular Rate and Rhythm Respiratory: Yes: CTA Bilaterally Gastrointestinal: Yes: Normal Bowel Sounds Extremities: Yes: Other (cellulitis R uex.iv heroine use) Neurological: Yes: Alert, Oriented Problem List - Problems (1) Cellulitis and abscess of upper arm and forearm Assessment/Plan: on ivabx cxs sent id consult Code(s): [id number] - (3) Anxiety Code(s): F41.9 - ANXIETY DISORDER, UNSPECIFIED (4) Drug withdrawal Assessment/Plan: on prn ativan will get detox consult Code(s): F19.939 - OTHER PSYCHOACTIVE SUBSTANCE USE, UNSP WITH WITHDRAWAL, UNSP Qualifiers: Substance type: opioid Qualified Code(s): F11.23 - Opioid dependence with withdrawal; F11.23 - Opioid dependence with withdrawal; F11.23 - Opioid dependence with withdrawal (5) Abscess Code(s): L02.91 - CUTANEOUS ABSCESS, UNSPECIFIED Assessment/Plan Laboratory Tests 08/29/17 08/29/17 08/29/17 11:03 11:36 11:38 WBC RBC Hgb Hct MCV MCH MCHC RDW Plt Count MPV Neutrophils % Lymphocytes % Monocytes % Eosinophils % Basophils % Sodium Potassium Chloride Carbon Dioxide Anion Gap BUN Creatinine Creat Clearance w eGFR Random Glucose Calcium Total Bilirubin AST ALT Alkaline Phosphatase Total Protein Albumin Serum , Qual Urine Color Yellow Urine Appearance Clear Urine pH 7.5 Urine Protein 1+ H Urine Glucose (UA) Negative Urine Ketones 1+ H Urine Blood Negative Urine Nitrite Negative Urine Bilirubin Negative Urine Urobilinogen 2.0 H Urine RBC 4 Urine WBC 9 Ur Epithelial Cells Rare Urine Bacteria Rare Urine Mucus Rare Urine HCG, Qual Negative Opiates Screen Positive Methadone Screen Negative Barbiturate Screen Negative Phencyclidine Screen Negative Ur Amphetamines Screen Negative MDMA (Ecstasy) Screen Negative Benzodiazepines Screen Negative Cocaine Screen Negative U Marijuana (THC) Screen Negative 08/29/17 08/29/17 08/29/17 11:45 11:45 11:45 WBC 6.5 D RBC 4.93 D Hgb 10.6 L Hct 34.2 MCV 69.4 L MCH 21.5 L MCHC 31.0 L RDW 18.2 H D Plt Count 559 H D MPV 7.4 L Neutrophils % 52.5 Lymphocytes % 38.5 Monocytes % 7.5 Eosinophils % 0.9 Basophils % 0.6 Sodium Cancelled Potassium Cancelled Chloride Cancelled Carbon Dioxide Cancelled Anion Gap Cancelled BUN Cancelled Creatinine Cancelled Creat Clearance w eGFR Cancelled Random Glucose Cancelled Calcium Cancelled Total Bilirubin Cancelled AST Cancelled ALT Cancelled Alkaline Phosphatase Cancelled Total Protein Cancelled Albumin Cancelled Serum , Qual Cancelled Urine Color Urine Appearance Urine pH Urine Protein Urine Glucose (UA) Urine Ketones Urine Blood Urine Nitrite Urine Bilirubin Urine Urobilinogen Urine RBC Urine WBC Ur Epithelial Cells Urine Bacteria Urine Mucus Urine HCG, Qual Opiates Screen Methadone Screen Barbiturate Screen Phencyclidine Screen Ur Amphetamines Screen MDMA (Ecstasy) Screen Benzodiazepines Screen Cocaine Screen U Marijuana (THC) Screen 08/29/17 12:20 WBC RBC Hgb Hct MCV MCH MCHC RDW Plt Count MPV Neutrophils % Lymphocytes % Monocytes % Eosinophils % Basophils % Sodium 139 Potassium 4.0 D Chloride 101 Carbon Dioxide 31 Anion Gap 7 L BUN 18 Creatinine 0.5 L Creat Clearance w eGFR > 60 Random Glucose 81 Calcium 8.2 L Total Bilirubin 0.3 D AST 33 D ALT 21 D Alkaline Phosphatase 113 D Total Protein 7.8 Albumin 2.7 L D Serum , Qual Urine Color Urine Appearance Urine pH Urine Protein Urine Glucose (UA) Urine Ketones Urine Blood Urine Nitrite Urine Bilirubin Urine Urobilinogen Urine RBC Urine WBC Ur Epithelial Cells Urine Bacteria Urine Mucus Urine HCG, Qual Opiates Screen Methadone Screen Barbiturate Screen Phencyclidine Screen Ur Amphetamines Screen MDMA (Ecstasy) Screen Benzodiazepines Screen Cocaine Screen U Marijuana (THC) Screen Active Medications Generic Name Dose Route Start Last Admin Trade Name Freq PRN Reason Stop Dose Admin Acetaminophen 650 mg 08/29/17 13:17 08/29/17 18:01 Tylenol - PO 650 mg Q6H PRN Administration FEVER OR PAIN Heparin Sodium (Porcine) 5,000 unit 08/29/17 22:00 Heparin - SQ BID CHANO Vancomycin HCl 1,250 mg/ 250 mls @ 166.667 mls/hr 08/30/17 12:00 Dextrose IVPB DAILY@1200 CHANO Protocol Piperacillin/Tazobactam/Dextrose 50 mls @ 100 mls/hr 08/29/17 18:00 08/29/17 18 :01 Zosyn 3.375gm Ivpb (Premix) IVPB 100 mls/hr Q8H-IV CHANO Administration Protocol
[2017-08-29] MEDS ORDERED: CYCLOBENZAPRINE HCL 10 MG TABLET (FP) PO ONE (14:16)
[2017-08-29] MEDS ORDERED: CYCLOBENZAPRINE HCL 10 MG TABLET (FP) ONE (14:45)
--- NOTE | 2017-08-29 15:01 | CON.ID ---
Consult Consult Specialty:: infectious diseases Reason for Consultation:: sepsis,wound infection - History of Present Illness History of Present Illness: 37-year-old female, history of COPD, asthma, former ETOH abuse, heroin abuse, status post admission for upper extremity abscesses secondary to long-term IV drug use, here with erythema, pain and swelling over deltoid area bilaterally that worsened today as per pt. Denies any fever or chills. Also reports that she is currently withdrawing from heroin. States last use was yesterday morning. Complaining of generalized body aches with restlessness nausea and malaise. No chest pain, sob or palpitations. States she was refused inpatient detox multiple times recently 2/2 poor health/low weight as per pt. patient has been admitted before but never has completed the treatment she takes at least 3--4 times a week iv drugs - History Source History Provided By: Patient Limitations to Obtaining History: Poor Historian - Past Medical History Gastrointestinal: Yes: Other (crohns disease ) ...LMP: 10/11/08 Psych: Yes: Anxiety - Alcohol/Substance Use Hx Alcohol Use: No - Smoking History Smoking history: Current every day smoker Have you smoked in the past 12 months: Yes Aproximately how many cigarettes per day: 20 Home Medications - Allergies Allergies/Adverse Reactions: Allergies Allergy/AdvReac Type Severity Reaction Status Date / Time peanut Allergy Severe Rash Verified 08/29/17 10:59 - Home Medications Home Medications: Ambulatory Orders Albuterol Sulfate Inhaler - [Ventolin HFA Inhaler -] 2 puff IH Q4H PRN 30 Days 01/28/17 Family Disease History - Family Disease History Family Disease History: Diabetes: Mother, CA: Father (STOMACH) Review of Systems - Review of Systems Constitutional: reports: Lethargy, Other (withdrawl symptoms) Eyes: reports: No Symptoms HENT: reports: No Symptoms Respiratory: reports: No Symptoms Gastrointestinal: reports: No Symptoms Genitourinary: reports: No Symptoms Musculoskeletal: reports: Back Pain, Extremity Pain Integumentary: reports: Bruising, Erythema Neurological: reports: Weakness Endocrine: reports: No Symptoms Hematology/Lymphatic: reports: No Symptoms Physical Exam Vital Signs: Vital Signs Temperature 98.5 F 08/29/17 10:50 Pulse Rate 94 H 08/29/17 10:50 Respiratory Rate 18 08/29/17 10:50 Blood Pressure 99/74 08/29/17 10:50 O2 Sat by Pulse Oximetry (%) 100 08/29/17 10:50 Constitutional: Yes: Thin, Other (failure to thrive) Eyes: Yes: Conjunctiva Clear Neck: Yes: Supple Cardiovascular: Yes: Regular Rate and Rhythm Respiratory: Yes: Regular, CTA Bilaterally Gastrointestinal: Yes: Normal Bowel Sounds, Soft Musculoskeletal: Yes: Other (Dry, Warm, Other (multiple small pustules with surrounding erythema to lateral aspect of deltoid region b/l, warm and very tender to touch)) Extremities: Yes: Other (Dry, Warm, Other (multiple small pustules with surrounding erythema to lateral aspect of deltoid region b/l, warm and very tender to touch)) Integumentary: Yes: Erythema Wound/Incision: Yes: Open to air Neurological: Yes: Alert, Oriented Psychiatric: Yes: Alert, Oriented Imaging - Results Chest X-ray: Report Reviewed, Image Reviewed X-ray: Report Reviewed, Image Reviewed Assessment/Plan Problem List - Problems (1) Cellulitis and abscess of upper arm and forearm Code(s): [id number] - (2) Anxiety Code(s): F41.9 - ANXIETY DISORDER, UNSPECIFIED (3) Drug withdrawal Code(s): F19.939 - OTHER PSYCHOACTIVE SUBSTANCE USE, UNSP WITH WITHDRAWAL, UNSP Qualifiers: Substance type: opioid Qualified Code(s): F11.23 - Opioid dependence with withdrawal; F11.23 - Opioid dependence with withdrawal; F11.23 - Opioid dependence with withdrawal (4) Abscess Code(s): L02.91 - CUTANEOUS ABSCESS, UNSPECIFIED plan will start on abx await for all cx if cx are positive will do and tte detox consult look at the wound will see how it does with abx or needs drainage down the road rest as per primary team
[2017-08-29 17:30] LABS: URINE LEUK ESTERASE Negative (NEGATIVE)
[2017-08-29] MEDS ORDERED: ACETAMINOPHEN 325 MG TABLET (FP) ONE (17:54)
[2017-08-29] MEDS: ACETAMINOPHEN 325 MG TABLET (FP) PO PRN (18:01)
[2017-08-29] MEDS: PIPERACILLIN/TAZOB 3.375 GM 50 ML IVPB SCH (18:01)
[2017-08-29] MEDS ORDERED: NICOTINE 21 MG/24 HOURS TOPICAL PATCH TD ONE (18:30)
[2017-08-29 22:54] VITALS: BMI 17.6
[2017-08-29] MEDS: HEPARIN NA (PORCINE) 5,000 UNITS/ML 1ML VIAL SQ SCH (23:25)
[2017-08-30] MEDS: LORazepam 2 MG/ML SDV VIAL IVPUSH PRN ×2 (02:02→08:39)
[2017-08-30] MEDS ORDERED: ONDANSETRON 4 MG/2 ML VIAL IVPUSH ONE (02:58)
--- NOTE | 2017-08-30 03:37 | HOSP ---
Subjective - Review of Symptoms Events since last encounter: 37yo F with PMH of asthma/COPD, former ETOH abuse, who reports she is withdrawing from heroin currently. Pt c/o generalized body aches, nausea and vomiting. Nurse called, and I came to assess the pt. Pt received her prn Ativan 0.5mg at 2:00, and attributes her nausea to that medication as opposed to withdrawal symptoms. Pt had one episode of nbnb vomiting this morning. Pt denies fever, chills, sob, chest pain, palpitations. PE VSS. General: thin female lying in bed quietly, began moaning upon arrousal for assessment Respiratory: CTAB Cardiovascular: RRR, +S1,S2 Abdominal: soft, diffuse tenderness to palpation Zofran given for nausea. Day team to reassess for signs of withdrawal. Physical Examination Vital Signs: Vital Signs Temperature 98.1 F 08/29/17 22:12 Pulse Rate 69 08/29/17 22:12 Respiratory Rate 18 08/29/17 22:12 Blood Pressure 109/71 08/29/17 22:12 O2 Sat by Pulse Oximetry (%) 98 08/29/17 20:12 Visit type - Emergency Visit Emergency Visit: Yes ED Registration Date: 08/29/17 Care time: The patient presented to the Emergency Department on the above date and was hospitalized for further evaluation of their emergent condition. - New Patient This patient is new to me today: Yes Date on this admission: 08/30/17 - Critical Care Critical Care patient: No
[2017-08-30] MEDS: PIPERACILLIN/TAZOB 3.375 GM 50 ML IVPB SCH ×3 (03:45→17:42)
--- NOTE | 2017-08-30 07:05 | EKG ---
Test Reason : Blood Pressure : / mmHG Vent. Rate : 077 BPM Atrial Rate : 077 BPM P-R Int : 194 ms QRS Dur : 078 ms QT Int : 406 ms P-R-T Axes : 066 -06 052 degrees QTc Int : 459 ms NORMAL SINUS RHYTHM WITH SINUS ARRHYTHMIA NORMAL ECG WHEN COMPARED WITH ECG OF 14-DEC-2016 00:51, T WAVE VARIATION Confirmed by LISSA WINN MD ([id number]) on 08/30/2017 7:05:32 AM Referred By: Confirmed By:LISSA WINN MD
[2017-08-30] MEDS: ACETAMINOPHEN 325 MG TABLET (FP) PO PRN ×2 (08:38→17:43)
[2017-08-30] MEDS ORDERED: ALBUTEROL SO4 18 GM HFA INHALER IH PRN (08:42)
--- NOTE | 2017-08-30 08:44 | CONSULT ---
Consult Detox [facility] Reason for Current Admission/Consult: positive toxiciolgy screen for opiates, please evaluate for detox Referred by:: Travis De La Cruz - History History of Present Illness: 37 yo f w PMHX nicotine dependence, COPD, asthma, crohn's disease, former ETOH abuse, currently IDU - heroin daily, admitted for upper extremity abscess/ cellulitis 2/2 IDU, c/o erythema, pain and swelling over shoulder, body aches, chills, sweats, insomnia, anxiety, tremors, diarrhea, nasal congestion, rhinorrhea, opioid withdrawal sx , last used yesterday now in severe withdrawal , - History Source History Provided By: Patient, Medical Record Limitations to Obtaining History: No Limitations - Alcohol/Substance Use Hx Alcohol Use: Yes (in remission, 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) Hx Substance Use: Yes Hx Substance Use Treatment: Yes - Current Drug/Alcohol Use Heroin Route: Injection Frequency: Daily Amount used: 1-2 bundles daily Age of first use: 35 - Past Medical History Pulmonary: Yes: Asthma, COPD Gastrointestinal: Yes: Crohn's Disease ...LMP: 10/11/08 ...: (preganancy test ordered) Heme/Onc: Yes: Anemia Psych: Yes: Addictions, Anxiety, Depression, Other (insomnia) - Significant Medical Findings: severe opioid withdrawal in setting or multiple medical comorbidities, cachexia , on iv antibiotics for cellulitis, labs reviewed COWS - Scale Resting Pulse: 0= VA 80 or Below Sweatin=Flushed/Facial Moisture Restless Observation: 3= Extraneous Movement Pupil Size: 1= Pupils >than Normal Bone or Joint Aches: 2= Severe Diffuse Aches Runny Nose/ Eye Tearin= Runny Nose/Eyes GI Upset > 30mins: 3= Vomiting/Diarrhea Tremor Observation: 2= Slight Tremor Visible Yawning Observation: 2= >3x During Session Anxiety or Irritability: 2=Irritable/Anxious Goose Flesh Skin: 3=Piloerection COWS Score: 22 Assessment Plan - Diagnosis (1) Opioid dependence with withdrawal Status: Acute (2) Cellulitis and abscess of upper arm and forearm Status: Acute (3) IVDU (intravenous drug user) Status: Acute (4) Nicotine dependence Status: Acute Qualifiers: Nicotine product type: cigarettes Substance use status: uncomplicated Qualified Code(s): F17.210 - Nicotine dependence, cigarettes, uncomplicated ; F17.210 - Nicotine dependence, cigarettes, uncomplicated (5) Weight loss Status: Acute (6) Substance induced mood disorder Status: Acute (7) Asthma Status: Chronic Qualifiers: Asthma severity: mild persistent Asthma complication type: with status asthmaticus (8) Anxiety Status: Acute (9) Insomnia Status: Acute - Plan Plan: Plan: Methadone detoxification from heroin over 5 days, symptomatic relief of withdrawal sx with zofran, ambien, valium, naprosyn, fleseril, protonx, neurontin. ensure plus tid for wt loss, albuterol inhaler prn for asthma, cont iv antibiotics as per primary team. HIV, Hep c and pregnanacy test ordered. Discussed discharge plannign with Keri Carver - will refer to [facility] to complete detox when medically stable or can obtain rehab bed if she completes detox while hospitalized (must first clear through insurance and call for bed to see if available). Patient is in agreement. Thank you for this consult call with any questions. Caleb Keith MD [phone] - Medication Detox Regimen/Protocol: Methadone
[2017-08-30] MEDS ORDERED: ONDANSETRON *ODT* 4 MG TABLET SL PRN (08:46)
[2017-08-30] MEDS ORDERED: NICOTINE POLACRILEX 4 MG GUM BUC PRN (08:55)
[2017-08-30] MEDS ORDERED: ONDANSETRON *ODT* 4 MG TABLET SL ONE (09:30)
[2017-08-30] MEDS ORDERED: PT OWN MED DRAWER 7, Y5N ONE (09:33)
[2017-08-30] MEDS: PANTOPRAZOLE 40 MG TABLET (FP) PO SCH (09:40)
[2017-08-30] MEDS: HEPARIN NA (PORCINE) 5,000 UNITS/ML 1ML VIAL SQ SCH ×2 (09:41→21:34)
--- NOTE | 2017-08-30 09:44 | PN ---
Progress Note, Physician History of Present Illness: patient improving arm still red both - Current Medication List Current Medications: Active Medications Acetaminophen (Tylenol -) 650 mg PO Q6H PRN PRN Reason: FEVER OR PAIN Last Admin: 08/30/17 08:38 Dose: 650 mg Albuterol Sulfate (Ventolin Hfa Inhaler -) 2 puff IH Q4H PRN PRN Reason: SHORT OF BREATH/WHEEZING Cyclobenzaprine HCl (Flexeril -) 5 mg PO TID [facility] Diazepam (Valium -) 10 mg PO Q4H PRN PRN Reason: WITHDRAWAL(CONT SUBST) Stop: 09/02/17 08:49 Docusate Sodium (Colace -) 300 mg PO HS [facility] Ferrous Sulfate (Feosol -) 325 mg PO TIDCM [facility] Gabapentin (Neurontin -) 100 mg PO TID [facility] Heparin Sodium (Porcine) (Heparin -) 5,000 unit SQ BID [facility] Last Admin: 08/29/17 23:25 Dose: Not Given Vancomycin HCl 1,250 mg/ (Dextrose) 250 mls @ 166.667 mls/hr IVPB DAILY@1200 [facility] PRN Reason: Protocol Piperacillin/Tazobactam/Dextrose (Zosyn 3.375gm Ivpb (Premix)) 50 mls @ 100 mls /hr IVPB Q8H-IV [facility] PRN Reason: Protocol Last Admin: 08/30/17 03:45 Dose: 100 mls/hr Methadone HCl (Dolophine -) 10 mg PO ONCE ONE Stop: 08/30/17 09:46 Methadone HCl (Dolophine -) 10 mg PO ONCE@2300 ONE Stop: 08/30/17 23:01 Methadone HCl (Dolophine -) 20 mg PO ONCE ONE Stop: 08/31/17 10:01 Methadone HCl (Dolophine -) 10 mg PO ONCE ONE Stop: 09/03/17 10:01 Methadone HCl (Dolophine -) 15 mg PO ONCE ONE Stop: 09/01/17 23:59 Methadone HCl (Dolophine -) 15 mg PO ONCE ONE Stop: 09/02/17 23:59 Methadone HCl (Dolophine -) 5 mg PO ONCE@0600 ONE Stop: 09/04/17 23:59 Naproxen (Naprosyn -) 500 mg PO BID [facility] Nicotine Polacrilex (Nicorette Gum -) 4 mg BUC Q2H PRN PRN Reason: NICOTINE REPLACEMENT RX Ondansetron HCl (Zofran Odt -) 8 mg SL Q6H PRN PRN Reason: NAUSEA AND/OR VOMITING Pantoprazole Sodium (Protonix -) 40 mg PO DAILY [facility] Multivit/Folic Acid/Iron ( Vitamins (Sjr) -) 1 tab PO DAILY [facility] Thiamine HCl (Vitamin B1 -) 100 mg PO HS [facility] Zolpidem Tartrate (Ambien -) 10 mg PO HS PRN PRN Reason: INSOMNIA - Objective Vital Signs: Vital Signs Temperature 98.1 F 08/29/17 22:12 Pulse Rate 69 08/29/17 22:12 Respiratory Rate 18 08/29/17 22:12 Blood Pressure 109/71 08/29/17 22:12 O2 Sat by Pulse Oximetry (%) 98 08/29/17 21:00 Constitutional: Yes: Mild Distress, Thin, Other (failure to thrive) Cardiovascular: Yes: Regular Rate and Rhythm Respiratory: Yes: Regular, CTA Bilaterally Gastrointestinal: Yes: Normal Bowel Sounds, Soft Musculoskeletal: Yes: Other Extremities: Yes: Erythema (both upper arms), Other (multiple lamas on both arms infected) Wound/Incision: Yes: Open to air Neurological: Yes: Alert, Oriented Assessment/Plan Problem List - Problems (1) Cellulitis and abscess of upper arm and forearm Code(s): [id number] - (2) Anxiety Code(s): F41.9 - ANXIETY DISORDER, UNSPECIFIED (3) Drug withdrawal Code(s): F19.939 - OTHER PSYCHOACTIVE SUBSTANCE USE, UNSP WITH WITHDRAWAL, UNSP Qualifiers: Substance type: opioid Qualified Code(s): F11.23 - Opioid dependence with withdrawal; F11.23 - Opioid dependence with withdrawal; F11.23 - Opioid dependence with withdrawal (4) Abscess Code(s): L02.91 - CUTANEOUS ABSCESS, UNSPECIFIED plan continue abx no cx send will watch fort any fevers if fevers send cx rest as per primary team
[2017-08-30] MEDS ORDERED: METHADONE HCL 10 MG TABLET PO ONE ×2 (09:45→23:00)
[2017-08-30] MEDS: VANCOMYCIN 1,250 MG in DEXTROSE 5%-WATER - 250 ML IVPB SCH (11:48)
[2017-08-30] MEDS: PRENATAL VITAMINS W/ FOLIC ACID TABLET (FP) PO SCH (11:48)
[2017-08-30] MEDS: NAPROXEN 500 MG TABLET (FP) PO SCH ×2 (11:48→22:39)
[2017-08-30] MEDS: diazePAM 5 MG TABLET PO PRN ×2 (14:02→17:45)
[2017-08-30] MEDS: CYCLOBENZAPRINE HCL 10 MG TABLET (FP) PO SCH ×2 (14:03→21:32)
[2017-08-30] MEDS: FERROUS SO4 325 MG TABLET (FP) PO SCH ×2 (14:04→17:43)
[2017-08-30] MEDS: GABAPENTIN 100 MG CAPSULE (FP) PO SCH ×2 (14:04→21:32)
--- NOTE | 2017-08-30 15:18 | PN ---
Progress Note, Physician History of Present Illness: nausea and vomitting - Current Medication List Current Medications: Active Medications Acetaminophen (Tylenol -) 650 mg PO Q6H PRN PRN Reason: FEVER OR PAIN Last Admin: 08/30/17 08:38 Dose: 650 mg Albuterol Sulfate (Ventolin Hfa Inhaler -) 2 puff IH Q4H PRN PRN Reason: SHORT OF BREATH/WHEEZING Cyclobenzaprine HCl (Flexeril -) 5 mg PO TID [facility] Last Admin: 08/30/17 14:03 Dose: 5 mg Diazepam (Valium -) 10 mg PO Q4H PRN PRN Reason: WITHDRAWAL(CONT SUBST) Stop: 09/02/17 08:49 Last Admin: 08/30/17 14:02 Dose: 10 mg Docusate Sodium (Colace -) 300 mg PO [facility] Ferrous Sulfate (Feosol -) 325 mg PO TIDCM [facility] Last Admin: 08/30/17 14:04 Dose: 325 mg Gabapentin (Neurontin -) 100 mg PO TID [facility] Last Admin: 08/30/17 14:04 Dose: 100 mg Heparin Sodium (Porcine) (Heparin -) 5,000 unit SQ BID [facility] Last Admin: 08/30/17 09:41 Dose: Not Given Vancomycin HCl 1,250 mg/ (Dextrose) 250 mls @ 166.667 mls/hr IVPB DAILY@1200 [facility] PRN Reason: Protocol Last Admin: 08/30/17 11:48 Dose: 166.667 mls/hr Piperacillin/Tazobactam/Dextrose (Zosyn 3.375gm Ivpb (Premix)) 50 mls @ 100 mls /hr IVPB Q8H-IV [facility] PRN Reason: Protocol Last Admin: 08/30/17 09:39 Dose: 100 mls/hr Methadone HCl (Dolophine -) 10 mg PO ONCE@2300 ONE Stop: 08/30/17 23:01 Methadone HCl (Dolophine -) 20 mg PO ONCE ONE Stop: 08/31/17 10:01 Methadone HCl (Dolophine -) 10 mg PO ONCE ONE Stop: 09/03/17 10:01 Methadone HCl (Dolophine -) 15 mg PO ONCE ONE Stop: 09/01/17 23:59 Methadone HCl (Dolophine -) 15 mg PO ONCE ONE Stop: 09/02/17 23:59 Methadone HCl (Dolophine -) 5 mg PO ONCE@0600 ONE Stop: 09/04/17 23:59 Naproxen (Naprosyn -) 500 mg PO BID [facility] Last Admin: 08/30/17 11:48 Dose: 500 mg Nicotine Polacrilex (Nicorette Gum -) 4 mg BUC Q2H PRN PRN Reason: NICOTINE REPLACEMENT RX Ondansetron HCl (Zofran Odt -) 8 mg SL Q6H PRN PRN Reason: NAUSEA AND/OR VOMITING Last Admin: 08/30/17 14:09 Dose: 8 mg Pantoprazole Sodium (Protonix -) 40 mg PO DAILY [facility] Last Admin: 08/30/17 09:40 Dose: 40 mg Multivit/Folic Acid/Iron ( Vitamins (Sjr) -) 1 tab PO DAILY [facility] Last Admin: 08/30/17 11:48 Dose: 1 tab Thiamine HCl (Vitamin B1 -) 100 mg PO HS [facility] Zolpidem Tartrate (Ambien -) 10 mg PO HS PRN PRN Reason: INSOMNIA - Objective Vital Signs: Vital Signs Temperature 98.5 F 08/30/17 09:45 Pulse Rate 70 08/30/17 09:45 Respiratory Rate 20 08/30/17 09:45 Blood Pressure 114/67 08/30/17 09:45 O2 Sat by Pulse Oximetry (%) 98 08/29/17 21:00 Constitutional: Yes: No Distress HENT: Yes: Atraumatic Neck: Yes: Supple Cardiovascular: Yes: Regular Rate and Rhythm Respiratory: Yes: CTA Bilaterally Gastrointestinal: Yes: Normal Bowel Sounds Extremities: Yes: Other (cellulitis ru/lux) Peripheral Pulses WNL: Yes Neurological: Yes: Alert, Oriented Problem List - Problems (1) Cellulitis and abscess of upper arm and forearm Assessment/Plan: on ivabx cxs sent id consult Code(s): [id number] - (3) Anxiety Assessment/Plan: on meds Code(s): F41.9 - ANXIETY DISORDER, UNSPECIFIED (4) Drug withdrawal Assessment/Plan: detox consult reviewed on methadone and other meds will give iv hydration and prn zofran for vomitting Code(s): F19.939 - OTHER PSYCHOACTIVE SUBSTANCE USE, UNSP WITH WITHDRAWAL, UNSP Qualifiers: Substance type: opioid Qualified Code(s): F11.23 - Opioid dependence with withdrawal; F11.23 - Opioid dependence with withdrawal; F11.23 - Opioid dependence with withdrawal (5) Abscess Code(s): L02.91 - CUTANEOUS ABSCESS, UNSPECIFIED Assessment/Plan Laboratory Tests 08/29/17 08/29/17 08/29/17 11:03 11:36 11:38 WBC RBC Hgb Hct MCV MCH MCHC RDW Plt Count MPV Neutrophils % Lymphocytes % Monocytes % Eosinophils % Basophils % Sodium Potassium Chloride Carbon Dioxide Anion Gap BUN Creatinine Creat Clearance w eGFR Random Glucose Calcium Total Bilirubin AST ALT Alkaline Phosphatase Total Protein Albumin Serum , Qual Urine Color Yellow Urine Appearance Clear Urine pH 7.5 Urine Protein 1+ H Urine Glucose (UA) Negative Urine Ketones 1+ H Urine Blood Negative Urine Nitrite Negative Urine Bilirubin Negative Urine Urobilinogen 2.0 H Urine RBC 4 Urine WBC 9 Ur Epithelial Cells Rare Urine Bacteria Rare Urine Mucus Rare Urine HCG, Qual Negative Opiates Screen Positive Methadone Screen Negative Barbiturate Screen Negative Phencyclidine Screen Negative Ur Amphetamines Screen Negative MDMA (Ecstasy) Screen Negative Benzodiazepines Screen Negative Cocaine Screen Negative U Marijuana (THC) Screen Negative 08/29/17 08/29/17 08/29/17 11:45 11:45 11:45 WBC 6.5 D RBC 4.93 D Hgb 10.6 L Hct 34.2 MCV 69.4 L MCH 21.5 L MCHC 31.0 L RDW 18.2 H D Plt Count 559 H D MPV 7.4 L Neutrophils % 52.5 Lymphocytes % 38.5 Monocytes % 7.5 Eosinophils % 0.9 Basophils % 0.6 Sodium Cancelled Potassium Cancelled Chloride Cancelled Carbon Dioxide Cancelled Anion Gap Cancelled BUN Cancelled Creatinine Cancelled Creat Clearance w eGFR Cancelled Random Glucose Cancelled Calcium Cancelled Total Bilirubin Cancelled AST Cancelled ALT Cancelled Alkaline Phosphatase Cancelled Total Protein Cancelled Albumin Cancelled Serum , Qual Cancelled Urine Color Urine Appearance Urine pH Urine Protein Urine Glucose (UA) Urine Ketones Urine Blood Urine Nitrite Urine Bilirubin Urine Urobilinogen Urine RBC Urine WBC Ur Epithelial Cells Urine Bacteria Urine Mucus Urine HCG, Qual Opiates Screen Methadone Screen Barbiturate Screen Phencyclidine Screen Ur Amphetamines Screen MDMA (Ecstasy) Screen Benzodiazepines Screen Cocaine Screen U Marijuana (THC) Screen 08/29/17 12:20 WBC RBC Hgb Hct MCV MCH MCHC RDW Plt Count MPV Neutrophils % Lymphocytes % Monocytes % Eosinophils % Basophils % Sodium 139 Potassium 4.0 D Chloride 101 Carbon Dioxide 31 Anion Gap 7 L BUN 18 Creatinine 0.5 L Creat Clearance w eGFR > 60 Random Glucose 81 Calcium 8.2 L Total Bilirubin 0.3 D AST 33 D ALT 21 D Alkaline Phosphatase 113 D Total Protein 7.8 Albumin 2.7 L D Serum , Qual Urine Color Urine Appearance Urine pH Urine Protein Urine Glucose (UA) Urine Ketones Urine Blood Urine Nitrite Urine Bilirubin Urine Urobilinogen Urine RBC Urine WBC Ur Epithelial Cells Urine Bacteria Urine Mucus Urine HCG, Qual Opiates Screen Methadone Screen Barbiturate Screen Phencyclidine Screen Ur Amphetamines Screen MDMA (Ecstasy) Screen Benzodiazepines Screen Cocaine Screen U Marijuana (THC) Screen Active Medications Generic Name Dose Route Start Last Admin Trade Name Freq PRN Reason Stop Dose Admin Acetaminophen 650 mg 08/29/17 13:17 08/29/17 18:01 Tylenol - PO 650 mg Q6H PRN Administration FEVER OR PAIN Heparin Sodium (Porcine) 5,000 unit 08/29/17 22:00 Heparin - SQ BID [facility] Vancomycin HCl 1,250 mg/ 250 mls @ 166.667 mls/hr 08/30/17 12:00 Dextrose IVPB DAILY@1200 [facility] Protocol Piperacillin/Tazobactam/Dextrose 50 mls @ 100 mls/hr 08/29/17 18:00 08/29/17 18 :01 Zosyn 3.375gm Ivpb (Premix) IVPB 100 mls/hr Q8H-IV [facility] Administration Protocol
[2017-08-30] MEDS: SODIUM CHLORIDE 1,000 ML IV SCH (17:42)
[2017-08-30] MEDS ORDERED: NICOTINE 21 MG/24 HOURS TOPICAL PATCH TD ONE (18:09)
[2017-08-30] MEDS: DOCUSATE SODIUM 100 MG CAPSULE (FP) PO SCH (21:32)
[2017-08-30] MEDS: THIAMINE HCL 100 MG TABLET (FP) PO SCH (21:33)
[2017-08-30] MEDS ORDERED: ZOLPIDEM TARTRATE 5 MG TABLET PO PRN (22:00)
[2017-08-31] MEDS: PIPERACILLIN/TAZOB 3.375 GM 50 ML IVPB SCH ×3 (01:54→18:23)
[2017-08-31] MEDS: diazePAM 5 MG TABLET PO PRN ×3 (02:04→16:13)
[2017-08-31] MEDS: GABAPENTIN 100 MG CAPSULE (FP) PO SCH ×3 (06:16→21:19)
[2017-08-31] MEDS: CYCLOBENZAPRINE HCL 10 MG TABLET (FP) PO SCH ×3 (06:16→21:19)
[2017-08-31 07:44] LABS: BASOPHIL 0.9 % (0-2.0); EOSINOPHIL 1.1 % (0-4.5); MCH 21.6 pg (25.7-33.7); MCHC 31.5 g/dl (32.0-36.0); MEAN CELL VOLUME 68.5 fl (80-96); MEAN PLT VOLUME 7.1 fl (7.5-11.1); NEUTROPHILS 44.1 % (42.8-82.8); PLATELET COUNT 558 K/MM3 (134-434); RDW 17.3 % (11.6-15.6); WHITE BLOOD COUNT 9.5 K/mm3 (4.0-10.0)
[2017-08-31] MEDS: SODIUM CHLORIDE 1,000 ML IV SCH ×2 (08:14→16:13)
[2017-08-31] MEDS: ACETAMINOPHEN 325 MG TABLET (FP) PO PRN (08:40)
[2017-08-31] MEDS: FERROUS SO4 325 MG TABLET (FP) PO SCH ×3 (08:41→18:23)
[2017-08-31] MEDS ORDERED: METHADONE HCL 10 MG TABLET PO ONE (10:00)
[2017-08-31] MEDS: PANTOPRAZOLE 40 MG TABLET (FP) PO SCH (10:07)
[2017-08-31] MEDS: NAPROXEN 500 MG TABLET (FP) PO SCH ×2 (10:08→21:19)
[2017-08-31] MEDS: HEPARIN NA (PORCINE) 5,000 UNITS/ML 1ML VIAL SQ SCH ×2 (10:08→21:32)
[2017-08-31] MEDS: PRENATAL VITAMINS W/ FOLIC ACID TABLET (FP) PO SCH (10:08)
[2017-08-31] MEDS: VANCOMYCIN 1,250 MG in DEXTROSE 5%-WATER - 250 ML IVPB SCH (12:50)
--- NOTE | 2017-08-31 14:20 | PN ---
Progress Note, Physician History of Present Illness: patient improving arm still red both keeps on picking the arm wounds - Current Medication List Current Medications: Active Medications Acetaminophen (Tylenol -) 650 mg PO Q6H PRN PRN Reason: FEVER OR PAIN Last Admin: 08/31/17 08:40 Dose: 650 mg Albuterol Sulfate (Ventolin Hfa Inhaler -) 2 puff IH Q4H PRN PRN Reason: SHORT OF BREATH/WHEEZING Diazepam (Valium -) 10 mg PO HS [facility] Docusate Sodium (Colace -) 300 mg PO HS [facility] Last Admin: 08/30/17 21:32 Dose: 300 mg Ferrous Sulfate (Feosol -) 325 mg PO TIDCM [facility] Last Admin: 08/31/17 12:51 Dose: 325 mg Gabapentin (Neurontin -) 100 mg PO TID [facility] Last Admin: 08/31/17 06:16 Dose: 100 mg Heparin Sodium (Porcine) (Heparin -) 5,000 unit SQ BID [facility] Last Admin: 08/31/17 10:08 Dose: 5,000 unit Vancomycin HCl 1,250 mg/ (Dextrose) 250 mls @ 166.667 mls/hr IVPB DAILY@1200 [facility] PRN Reason: Protocol Last Admin: 08/31/17 12:50 Dose: 166.667 mls/hr Piperacillin/Tazobactam/Dextrose (Zosyn 3.375gm Ivpb (Premix)) 50 mls @ 100 mls /hr IVPB Q8H-IV [facility] PRN Reason: Protocol Last Admin: 08/31/17 12:49 Dose: 100 mls/hr Sodium Chloride (Normal Saline -) 1,000 mls @ 75 mls/hr IV ASDIR [facility] Last Admin: 08/31/17 08:14 Dose: 75 mls/hr Methadone HCl (Dolophine -) 10 mg PO ONCE ONE Stop: 09/03/17 10:01 Methadone HCl (Dolophine -) 15 mg PO ONCE ONE Stop: 09/01/17 23:59 Methadone HCl (Dolophine -) 15 mg PO ONCE ONE Stop: 09/02/17 23:59 Methadone HCl (Dolophine -) 5 mg PO ONCE@0600 ONE Stop: 09/04/17 23:59 Naproxen (Naprosyn -) 500 mg PO BID [facility] Last Admin: 08/31/17 10:08 Dose: 500 mg Nicotine Polacrilex (Nicorette Gum -) 4 mg BUC Q2H PRN PRN Reason: NICOTINE REPLACEMENT RX Last Admin: 08/31/17 10:09 Dose: 4 mg Ondansetron HCl (Zofran Injection) 4 mg IVPB Q4H PRN PRN Reason: NAUSEA AND/OR VOMITING Pantoprazole Sodium (Protonix -) 40 mg PO DAILY [facility] Last Admin: 08/31/17 10:07 Dose: 40 mg Multivit/Folic Acid/Iron ( Vitamins (Sjr) -) 1 tab PO DAILY [facility] Last Admin: 08/31/17 10:08 Dose: 1 tab Thiamine HCl (Vitamin B1 -) 100 mg PO HS [facility] Last Admin: 08/30/17 21:33 Dose: 100 mg - Objective Vital Signs: Vital Signs Temperature 98.4 F 08/31/17 05:53 Pulse Rate 51 L 08/31/17 05:53 Respiratory Rate 20 08/31/17 05:53 Blood Pressure 107/70 08/31/17 05:53 O2 Sat by Pulse Oximetry (%) 98 08/29/17 21:00 Constitutional: Yes: No Distress, Calm, Thin (failure to thrive) Cardiovascular: Yes: Regular Rate and Rhythm Respiratory: Yes: Regular, CTA Bilaterally Gastrointestinal: Yes: Normal Bowel Sounds, Soft Musculoskeletal: Yes: Other Extremities: Yes: Other Wound/Incision: Yes: Open to air Neurological: Yes: Alert, Oriented Psychiatric: Yes: Alert, Oriented Labs: CBC, BMP 08/31/17 06:30 Assessment/Plan Problem List - Problems (1) Cellulitis and abscess of upper arm and forearm Code(s): [id number] - (2) Anxiety Code(s): F41.9 - ANXIETY DISORDER, UNSPECIFIED (3) Drug withdrawal Code(s): F19.939 - OTHER PSYCHOACTIVE SUBSTANCE USE, UNSP WITH WITHDRAWAL, UNSP Qualifiers: Substance type: opioid Qualified Code(s): F11.23 - Opioid dependence with withdrawal; F11.23 - Opioid dependence with withdrawal; F11.23 - Opioid dependence with withdrawal (4) Abscess Code(s): L02.91 - CUTANEOUS ABSCESS, UNSPECIFIED plan continue abx conitnue current mgmt
[2017-08-31] MEDS ORDERED: PT OWN MED DRAWER 7, Y5N ONE ×2 (18:22→21:16)
--- NOTE | 2017-08-31 18:53 | PN ---
Progress Note, Physician - Current Medication List Current Medications: Active Medications Acetaminophen (Tylenol -) 650 mg PO Q6H PRN PRN Reason: FEVER OR PAIN Last Admin: 08/31/17 08:40 Dose: 650 mg Albuterol Sulfate (Ventolin Hfa Inhaler -) 2 puff IH Q4H PRN PRN Reason: SHORT OF BREATH/WHEEZING Cyclobenzaprine HCl (Flexeril -) 10 mg PO TID [facility] Last Admin: 08/31/17 16:12 Dose: 10 mg Diazepam (Valium -) 10 mg PO [facility] Diazepam (Valium -) 10 mg PO Q4H PRN PRN Reason: WITHDRAWAL(CONT SUBST) Stop: 09/03/17 15:18 Last Admin: 08/31/17 16:13 Dose: 10 mg Docusate Sodium (Colace -) 300 mg PO [facility] Last Admin: 08/30/17 21:32 Dose: 300 mg Ferrous Sulfate (Feosol -) 325 mg PO TIDCM [facility] Last Admin: 08/31/17 18:23 Dose: 325 mg Gabapentin (Neurontin -) 200 mg PO TID [facility] Heparin Sodium (Porcine) (Heparin -) 5,000 unit SQ BID [facility] Last Admin: 08/31/17 10:08 Dose: 5,000 unit Vancomycin HCl 1,250 mg/ (Dextrose) 250 mls @ 166.667 mls/hr IVPB DAILY@1200 [facility] PRN Reason: Protocol Last Admin: 08/31/17 12:50 Dose: 166.667 mls/hr Piperacillin/Tazobactam/Dextrose (Zosyn 3.375gm Ivpb (Premix)) 50 mls @ 100 mls /hr IVPB Q8H-IV [facility] PRN Reason: Protocol Last Admin: 08/31/17 18:23 Dose: 100 mls/hr Sodium Chloride (Normal Saline -) 1,000 mls @ 75 mls/hr IV ASDIR [facility] Last Admin: 08/31/17 16:13 Dose: 75 mls/hr Methadone HCl (Dolophine -) 10 mg PO ONCE ONE Stop: 09/03/17 10:01 Methadone HCl (Dolophine -) 15 mg PO ONCE ONE Stop: 09/01/17 23:59 Methadone HCl (Dolophine -) 15 mg PO ONCE ONE Stop: 09/02/17 23:59 Methadone HCl (Dolophine -) 5 mg PO ONCE@0600 ONE Stop: 09/04/17 23:59 Naproxen (Naprosyn -) 500 mg PO BID [facility] Last Admin: 08/31/17 10:08 Dose: 500 mg Nicotine Polacrilex (Nicorette Gum -) 4 mg BUC Q2H PRN PRN Reason: NICOTINE REPLACEMENT RX Last Admin: 08/31/17 10:09 Dose: 4 mg Ondansetron HCl (Zofran Injection) 4 mg IVPB Q4H PRN PRN Reason: NAUSEA AND/OR VOMITING Pantoprazole Sodium (Protonix -) 40 mg PO DAILY [facility] Last Admin: 08/31/17 10:07 Dose: 40 mg Multivit/Folic Acid/Iron ( Vitamins (Sjr) -) 1 tab PO DAILY [facility] Last Admin: 08/31/17 10:08 Dose: 1 tab Thiamine HCl (Vitamin B1 -) 100 mg PO HS [facility] Last Admin: 08/30/17 21:33 Dose: 100 mg - Objective Vital Signs: Vital Signs Temperature 97.0 F L 08/31/17 14:30 Pulse Rate 62 08/31/17 14:30 Respiratory Rate 20 08/31/17 14:30 Blood Pressure 126/63 08/31/17 14:30 O2 Sat by Pulse Oximetry (%) 100 08/31/17 09:00 Constitutional: Yes: Anxious HENT: Yes: Atraumatic Neck: Yes: Supple Cardiovascular: Yes: Regular Rate and Rhythm Respiratory: Yes: CTA Bilaterally Gastrointestinal: Yes: Normal Bowel Sounds Extremities: Yes: Other (cellulitis b/l uex) Neurological: Yes: Alert, Oriented Labs: CBC, BMP 08/31/17 06:30 Problem List - Problems (1) Cellulitis and abscess of upper arm and forearm Assessment/Plan: on ivabx cxs sent id consult Code(s): [id number] - (3) Anxiety Assessment/Plan: on meds Code(s): F41.9 - ANXIETY DISORDER, UNSPECIFIED (4) Drug withdrawal Assessment/Plan: detox cosult ordered Code(s): F19.939 - OTHER PSYCHOACTIVE SUBSTANCE USE, UNSP WITH WITHDRAWAL, UNSP Qualifiers: Substance type: opioid Qualified Code(s): F11.23 - Opioid dependence with withdrawal; F11.23 - Opioid dependence with withdrawal; F11.23 - Opioid dependence with withdrawal (5) Abscess Code(s): L02.91 - CUTANEOUS ABSCESS, UNSPECIFIED
[2017-08-31] MEDS: NICOTINE 21 MG/24 HOURS TOPICAL PATCH TD SCH (21:19)
[2017-08-31] MEDS: THIAMINE HCL 100 MG TABLET (FP) PO SCH (21:19)
[2017-08-31] MEDS: DOCUSATE SODIUM 100 MG CAPSULE (FP) PO SCH (21:32)
[2017-08-31] MEDS ORDERED: diazePAM 5 MG TABLET PO SCH (22:00)
[2017-09-01] MEDS: diazePAM 5 MG TABLET PO PRN ×2 (03:07→09:14)
[2017-09-01] MEDS: PIPERACILLIN/TAZOB 3.375 GM 50 ML IVPB SCH ×3 (03:52→17:39)
[2017-09-01] MEDS: GABAPENTIN 100 MG CAPSULE (FP) PO SCH (05:57)
[2017-09-01] MEDS: CYCLOBENZAPRINE HCL 10 MG TABLET (FP) PO SCH ×3 (05:57→21:04)
[2017-09-01 06:06] LABS: SERUM IRON 77 ug/dL (27-159)
[2017-09-01] MEDS: ONDANSETRON 4 MG/2 ML VIAL IVPB PRN ×2 (06:09→10:09)
[2017-09-01] MEDS: FERROUS SO4 325 MG TABLET (FP) PO SCH ×4 (08:03→17:40)
[2017-09-01] MEDS: NICOTINE 21 MG/24 HOURS TOPICAL PATCH TD SCH (09:13)
[2017-09-01] MEDS: PANTOPRAZOLE 40 MG TABLET (FP) PO SCH (09:14)
[2017-09-01] MEDS: HEPARIN NA (PORCINE) 5,000 UNITS/ML 1ML VIAL SQ SCH ×2 (09:14→21:05)
[2017-09-01] MEDS ORDERED: PT OWN MED DRAWER 7, Y5N ONE (09:18)
[2017-09-01] MEDS: PRENATAL VITAMINS W/ FOLIC ACID TABLET (FP) PO SCH (09:23)
[2017-09-01] MEDS: NAPROXEN 500 MG TABLET (FP) PO SCH ×2 (09:23→22:30)
[2017-09-01] MEDS ORDERED: METHADONE HCL 5 MG TABLET PO ONE (10:00)
--- NOTE | 2017-09-01 10:27 | PN ---
[facility] COWS - Scale Resting Pulse: 0= [place] 80 or Below Sweatin= Chills/Flushing Restless Observation: 1= Difficult to Sit Still Pupil Size: 1= Pupils >than Normal Bone or Joint Aches: 2= Severe Diffuse Aches Runny Nose/ Eye Tearin= Nasal Congestion GI Upset > 30mins: 3= Vomiting/Diarrhea Tremor Observation of Outstretched Hands: 2= Slight Tremor Visible Yawning Observation: 1= 1-2x During Session Anxiety or Irritability: 2=Irritable/Anxious Goose Flesh Skin: 3=Piloerection COWS Score: 17 [facility] Progress Note (SOAP) Subjective: patient still experiencing severe withdrawal from heroin, insomnia, anxiety, sweats, chills, bodyaches, requestoing xanax for sleep at night and ativan prn during day instead of valium. denies any other illicit drug use, only heroin 4 bundles daily iv. Objective: 09/01/17 10:24 Vital Signs - 24 hr 08/31/17 08/31/17 09/01/17 14:30 21:00 06:00 Temperature 97.0 F L 98.7 F Pulse Rate 62 54 L Respiratory 20 22 20 Rate Blood Pressure 126/63 126/78 O2 Sat by Pulse 98 Oximetry (%) Laboratory Tests 08/29/17 08/29/17 08/29/17 11:03 11:36 11:38 WBC RBC Hgb Hct MCV MCH MCHC RDW Plt Count MPV Neutrophils % Lymphocytes % Monocytes % Eosinophils % Basophils % Sodium Potassium Chloride Carbon Dioxide Anion Gap BUN Creatinine Creat Clearance w eGFR Random Glucose Calcium Iron Ferritin Total Bilirubin AST ALT Alkaline Phosphatase Total Protein Albumin Serum , Qual Urine Color Yellow Urine Appearance Clear Urine pH 7.5 Ur Specific [place] 1.015 Urine Protein 1+ H Urine Glucose (UA) Negative Urine Ketones 1+ H Urine Blood Negative Urine Nitrite Negative Urine Bilirubin Negative Urine Urobilinogen 2.0 H Ur Leukocyte Esterase Negative Urine RBC 4 Urine WBC 9 Ur Epithelial Cells Rare Urine Bacteria Rare Urine Mucus Rare Urine HCG, Qual Negative Opiates Screen Positive Methadone Screen Negative Barbiturate Screen Negative Phencyclidine Screen Negative Ur Amphetamines Screen Negative MDMA (Ecstasy) Screen Negative Benzodiazepines Screen Negative Cocaine Screen Negative U Marijuana (THC) Screen Negative Hepatitis C Antibody HIV 1&2 Ag/Ab, 4th Gen 08/29/17 08/29/1708/29/17 11:45 11:45 11:45 WBC 6.5 D RBC 4.93 D Hgb 10.6 L Hct 34.2 MCV 69.4 L MCH 21.5 L MCHC 31.0 L RDW 18.2 H D Plt Count 559 H D MPV 7.4 L Neutrophils % 52.5 Lymphocytes % 38.5 Monocytes % 7.5 Eosinophils % 0.9 Basophils % 0.6 Sodium Cancelled Potassium Cancelled Chloride Cancelled Carbon Dioxide Cancelled Anion Gap Cancelled BUN Cancelled Creatinine Cancelled Creat Clearance w eGFR Cancelled Random Glucose Cancelled Calcium Cancelled Iron Ferritin Total Bilirubin Cancelled AST Cancelled ALT Cancelled Alkaline Phosphatase Cancelled Total Protein Cancelled Albumin Cancelled Serum , Qual Cancelled Urine Color Urine Appearance Urine pH Ur Specific [place] Urine Protein Urine Glucose (UA) Urine Ketones Urine Blood Urine Nitrite Urine Bilirubin Urine Urobilinogen Ur Leukocyte Esterase Urine RBC Urine WBC Ur Epithelial Cells Urine Bacteria Urine Mucus Urine HCG, Qual Opiates Screen Methadone Screen Barbiturate Screen Phencyclidine Screen Ur Amphetamines Screen MDMA (Ecstasy) Screen Benzodiazepines Screen Cocaine Screen U Marijuana (THC) Screen Hepatitis C Antibody HIV 1&2 Ag/Ab, 4th Gen 08/29/17 08/31/17 08/31/17 12:20 06:30 06:30 WBC RBC Hgb Hct MCV MCH MCHC RDW Plt Count MPV Neutrophils % Lymphocytes % Monocytes % Eosinophils % Basophils % Sodium 139 Potassium 4.0 D Chloride 101 Carbon Dioxide 31 Anion Gap 7 L BUN 18 Creatinine 0.5 L Creat Clearance w eGFR > 60 Random Glucose 81 Calcium 8.2 L Iron 77 Ferritin Total Bilirubin 0.3 D AST 33 D ALT 21 D Alkaline Phosphatase 113 D Total Protein 7.8 Albumin 2.7 L D Serum , Qual Negative Urine Color Urine Appearance Urine pH Ur Specific [place] Urine Protein Urine Glucose (UA) Urine Ketones Urine Blood Urine Nitrite Urine Bilirubin Urine Urobilinogen Ur Leukocyte Esterase Urine RBC Urine WBC Ur Epithelial Cells Urine Bacteria Urine Mucus Urine HCG, Qual Opiates Screen Methadone Screen Barbiturate Screen Phencyclidine Screen Ur Amphetamines Screen MDMA (Ecstasy) Screen Benzodiazepines Screen Cocaine Screen U Marijuana (THC) Screen Hepatitis C Antibody 4.1 H HIV 1&2 Ag/Ab, 4th Gen Non reactive 08/31/17 08/31/17 06:30 06:30 WBC 9.5 D RBC 4.55 Hgb 9.8 L Hct 31.2 L MCV 68.5 L MCH 21.6 L MCHC 31.5 L RDW 17.3 H Plt Count 558 H MPV 7.1 L Neutrophils % 44.1 Lymphocytes % 45.5 H Monocytes % 8.4 Eosinophils % 1.1 Basophils % 0.9 Sodium Potassium Chloride Carbon Dioxide Anion Gap BUN Creatinine Creat Clearance w eGFR Random Glucose Calcium Iron Ferritin 15.498 Total Bilirubin AST ALT Alkaline Phosphatase Total Protein Albumin Serum , Qual Urine Color Urine Appearance Urine pH Ur Specific [place] Urine Protein Urine Glucose (UA) Urine Ketones Urine Blood Urine Nitrite Urine Bilirubin Urine Urobilinogen Ur Leukocyte Esterase Urine RBC Urine WBC Ur Epithelial Cells Urine Bacteria Urine Mucus Urine HCG, Qual Opiates Screen Methadone Screen Barbiturate Screen Phencyclidine Screen Ur Amphetamines Screen MDMA (Ecstasy) Screen Benzodiazepines Screen Cocaine Screen U Marijuana (THC) Screen Hepatitis C Antibody HIV 1&2 Ag/Ab, 4th Gen microcytic anemia, neg utox +ve opiates only Assessment: 09/01/17 10:25 heroin withdrawal sx, IV antibiotics continued for cellulitis sepsis 2/2 idu Plan: cont deto, d/c valium xanax 2mg po at night for sleep, po ativan 2mg po q4h prn for anxiety, withdrawal muscle spasm, increase neurontin, symptomatic relief of withdrawl, recommend [facility] when discharged or can arrange for inpt rehab bed, patient will have completed detox prior to discharge and should not be sent to [facility] for detox. d/w nurse and patient
[2017-09-01] MEDS: VANCOMYCIN 1,250 MG in DEXTROSE 5%-WATER - 250 ML IVPB SCH (11:14)
[2017-09-01] MEDS ORDERED: LORazepam 1 MG TABLET PO ONE (11:15)
[2017-09-01] MEDS: GABAPENTIN 300 MG CAPSULE (FP) PO SCH ×2 (13:32→21:04)
[2017-09-01] MEDS: LORazepam 1 MG TABLET PO PRN ×2 (14:55→22:35)
--- NOTE | 2017-09-01 16:10 | PN ---
Progress Note, Physician History of Present Illness: patient stable looks much better picking wound pus noted to come out small amount from the site picked mostly induration all along - Current Medication List Current Medications: Active Medications Acetaminophen (Tylenol -) 650 mg PO Q6H PRN PRN Reason: FEVER OR PAIN Last Admin: 08/31/17 08:40 Dose: 650 mg Albuterol Sulfate (Ventolin Hfa Inhaler -) 2 puff IH Q4H PRN PRN Reason: SHORT OF BREATH/WHEEZING Alprazolam (Xanax -) 2 mg PO [facility] Cyclobenzaprine HCl (Flexeril -) 10 mg PO TID [facility] Last Admin: 09/01/17 13:32 Dose: 10 mg Docusate Sodium (Colace -) 300 mg PO [facility] Last Admin: 08/31/17 21:32 Dose: Not Given Ferrous Sulfate (Feosol -) 325 mg PO TIDCM [facility] Last Admin: 09/01/17 13:32 Dose: 325 mg Gabapentin (Neurontin -) 300 mg PO TID [facility] Last Admin: 09/01/17 13:32 Dose: 300 mg Heparin Sodium (Porcine) (Heparin -) 5,000 unit SQ BID [facility] Last Admin: 09/01/17 09:14 Dose: 5,000 unit Vancomycin HCl 1,250 mg/ (Dextrose) 250 mls @ 166.667 mls/hr IVPB DAILY@1200 [facility] PRN Reason: Protocol Last Admin: 09/01/17 11:14 Dose: 166.667 mls/hr Piperacillin/Tazobactam/Dextrose (Zosyn 3.375gm Ivpb (Premix)) 50 mls @ 100 mls /hr IVPB Q8H-IV [facility] PRN Reason: Protocol Last Admin: 09/01/17 10:38 Dose: 100 mls/hr Lorazepam (Ativan -) 2 mg PO TID PRN PRN Reason: ANXIETY Last Admin: 09/01/17 14:55 Dose: 2 mg Methadone HCl (Dolophine -) 10 mg PO ONCE ONE Stop: 09/03/17 10:01 Methadone HCl (Dolophine -) 15 mg PO ONCE ONE Stop: 09/01/17 23:59 Last Admin: 09/01/17 09:12 Dose: 15 mg Methadone HCl (Dolophine -) 15 mg PO ONCE ONE Stop: 09/02/17 23:59 Methadone HCl (Dolophine -) 5 mg PO ONCE@0600 ONE Stop: 09/04/17 23:59 Naproxen (Naprosyn -) 500 mg PO BID [facility] Last Admin: 09/01/17 09:23 Dose: 500 mg Nicotine (Nicoderm Patch -) 21 mg TD DAILY [facility] Last Admin: 09/01/17 09:13 Dose: 21 mg Ondansetron HCl (Zofran Injection) 4 mg IVPB Q4H PRN PRN Reason: NAUSEA AND/OR VOMITING Last Admin: 09/01/17 10:09 Dose: 4 mg Pantoprazole Sodium (Protonix -) 40 mg PO DAILY [facility] Last Admin: 09/01/17 09:14 Dose: 40 mg Multivit/Folic Acid/Iron ( Vitamins (Sjr) -) 1 tab PO DAILY [facility] Last Admin: 09/01/17 09:23 Dose: 1 tab Thiamine HCl (Vitamin B1 -) 100 mg PO HS [facility] Last Admin: 08/31/17 21:19 Dose: 100 mg - Objective Vital Signs: Vital Signs Temperature 98.9 F 09/01/17 14:10 Pulse Rate 69 09/01/17 14:10 Respiratory Rate 18 09/01/17 14:10 Blood Pressure 99/44 09/01/17 14:10 O2 Sat by Pulse Oximetry (%) 99 09/01/17 10:00 Constitutional: Yes: Calm, Mild Distress, Thin (failure to thrive) Cardiovascular: Yes: Regular Rate and Rhythm Respiratory: Yes: Regular, CTA Bilaterally Gastrointestinal: Yes: Normal Bowel Sounds, Soft Musculoskeletal: Yes: Other Extremities: Yes: Other Wound/Incision: Yes: Open to air Neurological: Yes: Alert, Oriented Psychiatric: Yes: Alert, Oriented Labs: CBC, BMP 08/31/17 06:30 Assessment/Plan Problem List - Problems (1) Cellulitis and abscess of upper arm and forearm Code(s): [id number] - (2) Anxiety Code(s): F41.9 - ANXIETY DISORDER, UNSPECIFIED (3) Drug withdrawal Code(s): F19.939 - OTHER PSYCHOACTIVE SUBSTANCE USE, UNSP WITH WITHDRAWAL, UNSP Qualifiers: Substance type: opioid Qualified Code(s): F11.23 - Opioid dependence with withdrawal; F11.23 - Opioid dependence with withdrawal; F11.23 - Opioid dependence with withdrawal (4) Abscess Code(s): L02.91 - CUTANEOUS ABSCESS, UNSPECIFIED plan continue abx continue current mgmt wound cx send will see what the cx show
--- NOTE | 2017-09-01 17:09 | PN ---
Progress Note, Physician History of Present Illness: nausea and vomitting - Current Medication List Current Medications: Active Medications Acetaminophen (Tylenol -) 650 mg PO Q6H PRN PRN Reason: FEVER OR PAIN Last Admin: 08/31/17 08:40 Dose: 650 mg Albuterol Sulfate (Ventolin Hfa Inhaler -) 2 puff IH Q4H PRN PRN Reason: SHORT OF BREATH/WHEEZING Alprazolam (Xanax -) 2 mg PO [facility] Cyclobenzaprine HCl (Flexeril -) 10 mg PO TID [facility] Last Admin: 09/01/17 13:32 Dose: 10 mg Docusate Sodium (Colace -) 300 mg PO HS [facility] Last Admin: 08/31/17 21:32 Dose: Not Given Ferrous Sulfate (Feosol -) 325 mg PO TIDCM [facility] Last Admin: 09/01/17 13:32 Dose: 325 mg Gabapentin (Neurontin -) 300 mg PO TID [facility] Last Admin: 09/01/17 13:32 Dose: 300 mg Heparin Sodium (Porcine) (Heparin -) 5,000 unit SQ BID [facility] Last Admin: 09/01/17 09:14 Dose: 5,000 unit Vancomycin HCl 1,250 mg/ (Dextrose) 250 mls @ 166.667 mls/hr IVPB DAILY@1200 [facility] PRN Reason: Protocol Last Admin: 09/01/17 11:14 Dose: 166.667 mls/hr Piperacillin/Tazobactam/Dextrose (Zosyn 3.375gm Ivpb (Premix)) 50 mls @ 100 mls /hr IVPB Q8H-IV [facility] PRN Reason: Protocol Last Admin: 09/01/17 10:38 Dose: 100 mls/hr Lorazepam (Ativan -) 2 mg PO TID PRN PRN Reason: ANXIETY Last Admin: 09/01/17 14:55 Dose: 2 mg Methadone HCl (Dolophine -) 10 mg PO ONCE ONE Stop: 09/03/17 10:01 Methadone HCl (Dolophine -) 15 mg PO ONCE ONE Stop: 09/01/17 23:59 Last Admin: 09/01/17 09:12 Dose: 15 mg Methadone HCl (Dolophine -) 15 mg PO ONCE ONE Stop: 09/02/17 23:59 Methadone HCl (Dolophine -) 5 mg PO ONCE@0600 ONE Stop: 09/04/17 23:59 Naproxen (Naprosyn -) 500 mg PO BID [facility] Last Admin: 09/01/17 09:23 Dose: 500 mg Nicotine (Nicoderm Patch -) 21 mg TD DAILY [facility] Last Admin: 09/01/17 09:13 Dose: 21 mg Ondansetron HCl (Zofran Injection) 4 mg IVPB Q4H PRN PRN Reason: NAUSEA AND/OR VOMITING Last Admin: 09/01/17 10:09 Dose: 4 mg Pantoprazole Sodium (Protonix -) 40 mg PO DAILY [facility] Last Admin: 09/01/17 09:14 Dose: 40 mg Multivit/Folic Acid/Iron ( Vitamins (Sjr) -) 1 tab PO DAILY [facility] Last Admin: 09/01/17 09:23 Dose: 1 tab Thiamine HCl (Vitamin B1 -) 100 mg PO HS [facility] Last Admin: 08/31/17 21:19 Dose: 100 mg - Objective Vital Signs: Vital Signs Temperature 98.9 F 09/01/17 14:10 Pulse Rate 69 09/01/17 14:10 Respiratory Rate 18 09/01/17 14:10 Blood Pressure 99/44 09/01/17 14:10 O2 Sat by Pulse Oximetry (%) 99 09/01/17 10:00 Constitutional: Yes: No Distress HENT: Yes: Atraumatic Neck: Yes: Supple Cardiovascular: Yes: Regular Rate and Rhythm Respiratory: Yes: CTA Bilaterally Gastrointestinal: Yes: Normal Bowel Sounds Extremities: Yes: WNL Labs: CBC, BMP 08/31/17 06:30 Problem List - Problems (1) Cellulitis and abscess of upper arm and forearm Assessment/Plan: on ivabx cxs sent id consult Code(s): [id number] - (3) Anxiety Assessment/Plan: on meds Code(s): F41.9 - ANXIETY DISORDER, UNSPECIFIED (4) Drug withdrawal Assessment/Plan: detox consult reviewed on methadone and other meds will give iv hydration and prn zofran for vomitting Code(s): F19.939 - OTHER PSYCHOACTIVE SUBSTANCE USE, UNSP WITH WITHDRAWAL, UNSP Qualifiers: Substance type: opioid Qualified Code(s): F11.23 - Opioid dependence with withdrawal; F11.23 - Opioid dependence with withdrawal; F11.23 - Opioid dependence with withdrawal (5) Abscess Code(s): L02.91 - CUTANEOUS ABSCESS, UNSPECIFIED Assessment/Plan
[2017-09-01] MEDS: THIAMINE HCL 100 MG TABLET (FP) PO SCH (21:04)
[2017-09-01] MEDS: DOCUSATE SODIUM 100 MG CAPSULE (FP) PO SCH (21:04)
[2017-09-01] MEDS ORDERED: ALPRAZolam 2 MG TABLET PO SCH (22:00)
[2017-09-02] MEDS: PIPERACILLIN/TAZOB 3.375 GM 50 ML IVPB SCH ×3 (02:23→17:33)
[2017-09-02] MEDS: ONDANSETRON 4 MG/2 ML VIAL IVPB PRN ×2 (04:56→09:26)
[2017-09-02] MEDS: CYCLOBENZAPRINE HCL 10 MG TABLET (FP) PO SCH ×3 (05:00→21:19)
[2017-09-02] MEDS: LORazepam 1 MG TABLET PO PRN (05:00)
[2017-09-02] MEDS: GABAPENTIN 300 MG CAPSULE (FP) PO SCH (05:00)
[2017-09-02] MEDS ORDERED: PT OWN MED DRAWER 7, Y5N ONE ×2 (09:23→20:42)
[2017-09-02] MEDS: NICOTINE 21 MG/24 HOURS TOPICAL PATCH TD SCH (09:30)
[2017-09-02] MEDS: HEPARIN NA (PORCINE) 5,000 UNITS/ML 1ML VIAL SQ SCH ×2 (09:31→21:19)
[2017-09-02] MEDS: FERROUS SO4 325 MG TABLET (FP) PO SCH ×4 (09:32→17:32)
[2017-09-02] MEDS: NAPROXEN 500 MG TABLET (FP) PO SCH ×2 (09:32→21:18)
[2017-09-02] MEDS: PANTOPRAZOLE 40 MG TABLET (FP) PO SCH (09:32)
[2017-09-02] MEDS: PRENATAL VITAMINS W/ FOLIC ACID TABLET (FP) PO SCH (09:32)
[2017-09-02] MEDS ORDERED: METHADONE HCL 5 MG TABLET PO ONE (10:00)
[2017-09-02] MEDS: VANCOMYCIN 1,250 MG in DEXTROSE 5%-WATER - 250 ML IVPB SCH (11:44)
[2017-09-02] MEDS ORDERED: GABAPENTIN 300 MG CAPSULE (FP) PO SCH (12:00)
[2017-09-02] MEDS ORDERED: hydrOXYzine HCL 25 MG TABLET (FP) PO PRN (12:01)
[2017-09-02] MEDS ORDERED: ONDANSETRON *ODT* 4 MG TABLET SL PRN (12:02)
[2017-09-02] MEDS: ALPRAZolam 2 MG TABLET PO PRN ×2 (12:25→19:38)
[2017-09-02] MEDS: GABAPENTIN 400 MG CAPSULE (FP) PO SCH ×2 (13:33→21:19)
--- NOTE | 2017-09-02 14:56 | PN ---
Progress Note, Physician History of Present Illness: no events no issues depression wants to smoke - Current Medication List Current Medications: Active Medications Acetaminophen (Tylenol -) 650 mg PO Q6H PRN PRN Reason: FEVER OR PAIN Last Admin: 08/31/17 08:40 Dose: 650 mg Albuterol Sulfate (Ventolin Hfa Inhaler -) 2 puff IH Q4H PRN PRN Reason: SHORT OF BREATH/WHEEZING Alprazolam (Xanax -) 2 mg PO TID PRN PRN Reason: ANXIETY Last Admin: 09/02/17 12:25 Dose: 2 mg Cyclobenzaprine HCl (Flexeril -) 10 mg PO TID [facility] Last Admin: 09/02/17 13:23 Dose: 10 mg Docusate Sodium (Colace -) 300 mg PO HS [facility] Last Admin: 09/01/17 21:04 Dose: 300 mg Ferrous Sulfate (Feosol -) 325 mg PO TIDCM [facility] Last Admin: 09/02/17 12:29 Dose: Not Given Gabapentin (Neurontin -) 400 mg PO TID [facility] Last Admin: 09/02/17 13:33 Dose: 400 mg Heparin Sodium (Porcine) (Heparin -) 5,000 unit SQ BID [facility] Last Admin: 09/02/17 09:31 Dose: 5,000 unit Hydroxyzine HCl (Atarax -) 50 mg PO TID PRN PRN Reason: FOR ITCHING Vancomycin HCl 1,250 mg/ (Dextrose) 250 mls @ 166.667 mls/hr IVPB DAILY@1200 [facility] PRN Reason: Protocol Last Admin: 09/02/17 11:44 Dose: 166.667 mls/hr Piperacillin/Tazobactam/Dextrose (Zosyn 3.375gm Ivpb (Premix)) 50 mls @ 100 mls /hr IVPB Q8H-IV [facility] PRN Reason: Protocol Last Admin: 09/02/17 11:04 Dose: 100 mls/hr Methadone HCl (Dolophine -) 10 mg PO ONCE ONE Stop: 09/03/17 10:01 Methadone HCl (Dolophine -) 15 mg PO ONCE ONE Stop: 09/01/17 23:59 Last Admin: 09/01/17 09:12 Dose: 15 mg Methadone HCl (Dolophine -) 15 mg PO ONCE ONE Stop: 09/02/17 23:59 Last Admin: 09/02/17 09:31 Dose: 15 mg Methadone HCl (Dolophine -) 5 mg PO ONCE@0600 ONE Stop: 09/04/17 23:59 Naproxen (Naprosyn -) 500 mg PO BID [facility] Last Admin: 09/02/17 09:32 Dose: 500 mg Nicotine (Nicoderm Patch -) 21 mg TD DAILY [facility] Last Admin: 09/02/17 09:30 Dose: 21 mg Ondansetron HCl (Zofran Odt -) 8 mg SL Q6H PRN PRN Reason: NAUSEA AND/OR VOMITING Pantoprazole Sodium (Protonix -) 40 mg PO DAILY [facility] Last Admin: 09/02/17 09:32 Dose: 40 mg Multivit/Folic Acid/Iron ( Vitamins (Sjr) -) 1 tab PO DAILY [facility] Last Admin: 09/02/17 09:32 Dose: 1 tab Thiamine HCl (Vitamin B1 -) 100 mg PO HS [facility] Last Admin: 09/01/17 21:04 Dose: 100 mg Zolpidem Tartrate (Ambien -) 10 mg PO HS PRN PRN Reason: INSOMNIA - Objective Vital Signs: Vital Signs Temperature 97.9 F 09/02/17 06:00 Pulse Rate 56 L 09/02/17 06:00 Respiratory Rate 14 09/02/17 06:00 Blood Pressure 113/74 09/02/17 06:00 O2 Sat by Pulse Oximetry (%) 100 09/02/17 10:00 Constitutional: Yes: No Distress, Calm, Other (failure to thrive) Cardiovascular: Yes: Regular Rate and Rhythm Respiratory: Yes: Regular, CTA Bilaterally Gastrointestinal: Yes: Normal Bowel Sounds, Soft Musculoskeletal: Yes: Other Extremities: Yes: Other Integumentary: Yes: Erythema, Rash Wound/Incision: Yes: Open to air Neurological: Yes: Alert, Oriented, Other (anxious) Psychiatric: Yes: Alert, Oriented Labs: CBC, BMP 08/31/17 06:30 Assessment/Plan Problem List - Problems (1) Cellulitis and abscess of upper arm and forearm Code(s): [id number] - (2) Anxiety Code(s): F41.9 - ANXIETY DISORDER, UNSPECIFIED (3) Drug withdrawal Code(s): F19.939 - OTHER PSYCHOACTIVE SUBSTANCE USE, UNSP WITH WITHDRAWAL, UNSP Qualifiers: Substance type: opioid Qualified Code(s): F11.23 - Opioid dependence with withdrawal; F11.23 - Opioid dependence with withdrawal; F11.23 - Opioid dependence with withdrawal (4) Abscess Code(s): L02.91 - CUTANEOUS ABSCESS, UNSPECIFIED plan continue abx continue current mgmt await for cx rest as per primary
--- NOTE | 2017-09-02 19:33 | PN ---
Progress Note, Physician - Current Medication List Current Medications: Active Medications Acetaminophen (Tylenol -) 650 mg PO Q6H PRN PRN Reason: FEVER OR PAIN Last Admin: 08/31/17 08:40 Dose: 650 mg Albuterol Sulfate (Ventolin Hfa Inhaler -) 2 puff IH Q4H PRN PRN Reason: SHORT OF BREATH/WHEEZING Alprazolam (Xanax -) 2 mg PO TID PRN PRN Reason: ANXIETY Last Admin: 09/02/17 12:25 Dose: 2 mg Cyclobenzaprine HCl (Flexeril -) 10 mg PO TID [facility] Last Admin: 09/02/17 13:23 Dose: 10 mg Docusate Sodium (Colace -) 300 mg PO HS [facility] Last Admin: 09/01/17 21:04 Dose: 300 mg Ferrous Sulfate (Feosol -) 325 mg PO TIDCM [facility] Last Admin: 09/02/17 17:32 Dose: Not Given Gabapentin (Neurontin -) 400 mg PO TID [facility] Last Admin: 09/02/17 13:33 Dose: 400 mg Heparin Sodium (Porcine) (Heparin -) 5,000 unit SQ BID [facility] Last Admin: 09/02/17 09:31 Dose: 5,000 unit Hydroxyzine HCl (Atarax -) 50 mg PO TID PRN PRN Reason: FOR ITCHING Last Admin: 09/02/17 15:03 Dose: 50 mg Vancomycin HCl 1,250 mg/ (Dextrose) 250 mls @ 166.667 mls/hr IVPB DAILY@1200 [facility] PRN Reason: Protocol Last Admin: 09/02/17 11:44 Dose: 166.667 mls/hr Piperacillin/Tazobactam/Dextrose (Zosyn 3.375gm Ivpb (Premix)) 50 mls @ 100 mls /hr IVPB Q8H-IV [facility] PRN Reason: Protocol Last Admin: 09/02/17 17:33 Dose: 100 mls/hr Methadone HCl (Dolophine -) 10 mg PO ONCE ONE Stop: 09/03/17 10:01 Methadone HCl (Dolophine -) 15 mg PO ONCE ONE Stop: 09/01/17 23:59 Last Admin: 09/01/17 09:12 Dose: 15 mg Methadone HCl (Dolophine -) 15 mg PO ONCE ONE Stop: 09/02/17 23:59 Last Admin: 09/02/17 09:31 Dose: 15 mg Methadone HCl (Dolophine -) 5 mg PO ONCE@0600 ONE Stop: 09/04/17 23:59 Naproxen (Naprosyn -) 500 mg PO BID [facility] Last Admin: 09/02/17 09:32 Dose: 500 mg Nicotine (Nicoderm Patch -) 21 mg TD DAILY [facility] Last Admin: 09/02/17 09:30 Dose: 21 mg Ondansetron HCl (Zofran Odt -) 8 mg SL Q6H PRN PRN Reason: NAUSEA AND/OR VOMITING Pantoprazole Sodium (Protonix -) 40 mg PO DAILY [facility] Last Admin: 09/02/17 09:32 Dose: 40 mg Multivit/Folic Acid/Iron ( Vitamins (Sjr) -) 1 tab PO DAILY [facility] Last Admin: 09/02/17 09:32 Dose: 1 tab Thiamine HCl (Vitamin B1 -) 100 mg PO HS [facility] Last Admin: 09/01/17 21:04 Dose: 100 mg Zolpidem Tartrate (Ambien -) 10 mg PO HS PRN PRN Reason: INSOMNIA - Objective Vital Signs: Vital Signs Temperature 99.2 F 09/02/17 14:29 Pulse Rate 89 09/02/17 14:29 Respiratory Rate 20 09/02/17 14:29 Blood Pressure 115/64 09/02/17 14:29 O2 Sat by Pulse Oximetry (%) 100 09/02/17 10:00 Constitutional: Yes: Anxious HENT: Yes: Atraumatic Neck: Yes: Supple Cardiovascular: Yes: Regular Rate and Rhythm Respiratory: Yes: CTA Bilaterally Gastrointestinal: Yes: Normal Bowel Sounds Extremities: Yes: Other (celulitis) Neurological: Yes: Alert, Oriented Labs: CBC, BMP 08/31/17 06:30 Problem List - Problems (1) Cellulitis and abscess of upper arm and forearm Assessment/Plan: on ivabx cxs sent id consult Code(s): [id number] - (3) Anxiety Assessment/Plan: on meds Code(s): F41.9 - ANXIETY DISORDER, UNSPECIFIED (4) Drug withdrawal Assessment/Plan: detox consult reviewed on methadone and other meds will give iv hydration and prn zofran for vomitting Code(s): F19.939 - OTHER PSYCHOACTIVE SUBSTANCE USE, UNSP WITH WITHDRAWAL, UNSP Qualifiers: Substance type: opioid Qualified Code(s): F11.23 - Opioid dependence with withdrawal; F11.23 - Opioid dependence with withdrawal; F11.23 - Opioid dependence with withdrawal (5) Abscess Code(s): L02.91 - CUTANEOUS ABSCESS, UNSPECIFIED Assessment/Plan
[2017-09-02] MEDS: THIAMINE HCL 100 MG TABLET (FP) PO SCH (21:18)
[2017-09-02] MEDS: DOCUSATE SODIUM 100 MG CAPSULE (FP) PO SCH (21:18)
[2017-09-02] MEDS: ZOLPIDEM TARTRATE 5 MG TABLET PO PRN (21:19)
[2017-09-03] MEDS ORDERED: PT OWN MED DRAWER 7, Y5N ONE ×3 (02:50→22:03)
[2017-09-03] MEDS: ALPRAZolam 2 MG TABLET PO PRN ×3 (03:05→19:39)
[2017-09-03] MEDS: PIPERACILLIN/TAZOB 3.375 GM 50 ML IVPB SCH ×3 (03:05→17:41)
[2017-09-03] MEDS: CYCLOBENZAPRINE HCL 10 MG TABLET (FP) PO SCH ×3 (05:28→22:09)
[2017-09-03] MEDS: GABAPENTIN 400 MG CAPSULE (FP) PO SCH ×3 (05:28→22:09)
[2017-09-03] MEDS: PANTOPRAZOLE 40 MG TABLET (FP) PO SCH (09:42)
[2017-09-03] MEDS: NICOTINE 21 MG/24 HOURS TOPICAL PATCH TD SCH (09:42)
[2017-09-03] MEDS: NAPROXEN 500 MG TABLET (FP) PO SCH ×2 (09:43→22:10)
[2017-09-03] MEDS: PRENATAL VITAMINS W/ FOLIC ACID TABLET (FP) PO SCH (09:43)
[2017-09-03] MEDS: FERROUS SO4 325 MG TABLET (FP) PO SCH ×3 (09:45→17:45)
[2017-09-03] MEDS: HEPARIN NA (PORCINE) 5,000 UNITS/ML 1ML VIAL SQ SCH ×2 (09:58→22:10)
[2017-09-03] MEDS ORDERED: METHADONE HCL 10 MG TABLET PO ONE (10:00)
[2017-09-03 10:17] LABS: HIV 1 & 2 AB NEGATIVE; HIV 1 AGp24 NEGATIVE
[2017-09-03] MEDS: VANCOMYCIN 1,250 MG in DEXTROSE 5%-WATER - 250 ML IVPB SCH (12:57)
--- NOTE | 2017-09-03 14:25 | PN ---
Progress Note, Physician History of Present Illness: no events no issues feels ok - Current Medication List Current Medications: Active Medications Acetaminophen (Tylenol -) 650 mg PO Q6H PRN PRN Reason: FEVER OR PAIN Last Admin: 08/31/17 08:40 Dose: 650 mg Albuterol Sulfate (Ventolin Hfa Inhaler -) 2 puff IH Q4H PRN PRN Reason: SHORT OF BREATH/WHEEZING Last Admin: 09/02/17 21:20 Dose: 2 puff Alprazolam (Xanax -) 2 mg PO TID PRN PRN Reason: ANXIETY Last Admin: 09/03/17 10:45 Dose: 2 mg Cyclobenzaprine HCl (Flexeril -) 10 mg PO TID [facility] Last Admin: 09/03/17 13:22 Dose: 10 mg Docusate Sodium (Colace -) 300 mg PO HS [facility] Last Admin: 09/02/17 21:18 Dose: 300 mg Ferrous Sulfate (Feosol -) 325 mg PO TIDCM [facility] Last Admin: 09/03/17 13:14 Dose: Not Given Gabapentin (Neurontin -) 400 mg PO TID [facility] Last Admin: 09/03/17 13:22 Dose: 400 mg Heparin Sodium (Porcine) (Heparin -) 5,000 unit SQ BID [facility] Last Admin: 09/03/17 09:58 Dose: 5,000 unit Hydroxyzine HCl (Atarax -) 50 mg PO TID PRN PRN Reason: FOR ITCHING Last Admin: 09/02/17 15:03 Dose: 50 mg Vancomycin HCl 1,250 mg/ (Dextrose) 250 mls @ 166.667 mls/hr IVPB DAILY@1200 CHANO PRN Reason: Protocol Last Admin: 09/03/17 12:57 Dose: 166.667 mls/hr Piperacillin/Tazobactam/Dextrose (Zosyn 3.375gm Ivpb (Premix)) 50 mls @ 100 mls /hr IVPB Q8H-IV CHANO PRN Reason: Protocol Last Admin: 09/03/17 09:42 Dose: 100 mls/hr Methadone HCl (Dolophine -) 15 mg PO ONCE ONE Stop: 09/01/17 23:59 Last Admin: 09/01/17 09:12 Dose: 15 mg Methadone HCl (Dolophine -) 15 mg PO ONCE ONE Stop: 09/02/17 23:59 Last Admin: 09/02/17 09:31 Dose: 15 mg Methadone HCl (Dolophine -) 5 mg PO ONCE@0600 ONE Stop: 09/04/17 23:59 Naproxen (Naprosyn -) 500 mg PO BID [facility] Last Admin: 09/03/17 09:43 Dose: 500 mg Nicotine (Nicoderm Patch -) 21 mg TD DAILY [facility] Last Admin: 09/03/17 09:42 Dose: 21 mg Ondansetron HCl (Zofran Odt -) 8 mg SL Q6H PRN PRN Reason: NAUSEA AND/OR VOMITING Pantoprazole Sodium (Protonix -) 40 mg PO DAILY [facility] Last Admin: 09/03/17 09:42 Dose: 40 mg Multivit/Folic Acid/Iron ( Vitamins (Sjr) -) 1 tab PO DAILY [facility] Last Admin: 09/03/17 09:43 Dose: 1 tab Thiamine HCl (Vitamin B1 -) 100 mg PO HS [facility] Last Admin: 09/02/17 21:18 Dose: 100 mg Zolpidem Tartrate (Ambien -) 10 mg PO HS PRN PRN Reason: INSOMNIA Last Admin: 09/02/17 21:19 Dose: 10 mg - Objective Vital Signs: Vital Signs Temperature 98.1 F 09/03/17 09:06 Pulse Rate 83 09/03/17 09:06 Respiratory Rate 16 09/03/17 09:06 Blood Pressure 90/51 09/03/17 09:06 O2 Sat by Pulse Oximetry (%) 100 09/02/17 22:00 Constitutional: Yes: No Distress, Calm Cardiovascular: Yes: Regular Rate and Rhythm Respiratory: Yes: Regular, CTA Bilaterally Gastrointestinal: Yes: Normal Bowel Sounds, Soft Musculoskeletal: Yes: Other Extremities: Yes: Other (ext still drianing pus) Neurological: Yes: Alert, Oriented Psychiatric: Yes: Alert, Oriented Labs: CBC, BMP 08/31/17 06:30 Assessment/Plan Problem List - Problems (1) Cellulitis and abscess of upper arm and forearm Code(s): FKH3035 - (2) Anxiety Code(s): F41.9 - ANXIETY DISORDER, UNSPECIFIED (3) Drug withdrawal Code(s): F19.939 - OTHER PSYCHOACTIVE SUBSTANCE USE, UNSP WITH WITHDRAWAL, UNSP Qualifiers: Substance type: opioid Qualified Code(s): F11.23 - Opioid dependence with withdrawal; F11.23 - Opioid dependence with withdrawal; F11.23 - Opioid dependence with withdrawal (4) Abscess Code(s): L02.91 - CUTANEOUS ABSCESS, UNSPECIFIED plan continue abx continue current mgmt cx result noted rest as per primary blood cx still pending
--- NOTE | 2017-09-03 18:30 | PN ---
Progress Note, Physician - Current Medication List Current Medications: Active Medications Acetaminophen (Tylenol -) 650 mg PO Q6H PRN PRN Reason: FEVER OR PAIN Last Admin: 08/31/17 08:40 Dose: 650 mg Albuterol Sulfate (Ventolin Hfa Inhaler -) 2 puff IH Q4H PRN PRN Reason: SHORT OF BREATH/WHEEZING Last Admin: 09/02/17 21:20 Dose: 2 puff Alprazolam (Xanax -) 2 mg PO TID PRN PRN Reason: ANXIETY Last Admin: 09/03/17 10:45 Dose: 2 mg Cyclobenzaprine HCl (Flexeril -) 10 mg PO TID COUNTS INCLUDE 234 BEDS AT THE [facility] Last Admin: 09/03/17 13:22 Dose: 10 mg Docusate Sodium (Colace -) 300 mg PO HS COUNTS INCLUDE 234 BEDS AT THE [facility] Last Admin: 09/02/17 21:18 Dose: 300 mg Ferrous Sulfate (Feosol -) 325 mg PO TIDCM COUNTS INCLUDE 234 BEDS AT THE [facility] Last Admin: 09/03/17 17:45 Dose: Not Given Gabapentin (Neurontin -) 400 mg PO TID COUNTS INCLUDE 234 BEDS AT THE [facility] Last Admin: 09/03/17 13:22 Dose: 400 mg Heparin Sodium (Porcine) (Heparin -) 5,000 unit SQ BID COUNTS INCLUDE 234 BEDS AT THE [facility] Last Admin: 09/03/17 09:58 Dose: 5,000 unit Hydroxyzine HCl (Atarax -) 50 mg PO TID PRN PRN Reason: FOR ITCHING Last Admin: 09/02/17 15:03 Dose: 50 mg Vancomycin HCl 1,250 mg/ (Dextrose) 250 mls @ 166.667 mls/hr IVPB DAILY@1200 CHANO PRN Reason: Protocol Last Admin: 09/03/17 12:57 Dose: 166.667 mls/hr Piperacillin/Tazobactam/Dextrose (Zosyn 3.375gm Ivpb (Premix)) 50 mls @ 100 mls /hr IVPB Q8H-IV CHANO PRN Reason: Protocol Last Admin: 09/03/17 17:41 Dose: 100 mls/hr Methadone HCl (Dolophine -) 15 mg PO ONCE ONE Stop: 09/01/17 23:59 Last Admin: 09/01/17 09:12 Dose: 15 mg Methadone HCl (Dolophine -) 15 mg PO ONCE ONE Stop: 09/02/17 23:59 Last Admin: 09/02/17 09:31 Dose: 15 mg Methadone HCl (Dolophine -) 5 mg PO ONCE@0600 ONE Stop: 09/04/17 23:59 Naproxen (Naprosyn -) 500 mg PO BID COUNTS INCLUDE 234 BEDS AT THE [facility] Last Admin: 09/03/17 09:43 Dose: 500 mg Nicotine (Nicoderm Patch -) 21 mg TD DAILY COUNTS INCLUDE 234 BEDS AT THE [facility] Last Admin: 09/03/17 09:42 Dose: 21 mg Ondansetron HCl (Zofran Odt -) 8 mg SL Q6H PRN PRN Reason: NAUSEA AND/OR VOMITING Pantoprazole Sodium (Protonix -) 40 mg PO DAILY COUNTS INCLUDE 234 BEDS AT THE [facility] Last Admin: 09/03/17 09:42 Dose: 40 mg Multivit/Folic Acid/Iron ( Vitamins (Sjr) -) 1 tab PO DAILY COUNTS INCLUDE 234 BEDS AT THE [facility] Last Admin: 09/03/17 09:43 Dose: 1 tab Thiamine HCl (Vitamin B1 -) 100 mg PO HS COUNTS INCLUDE 234 BEDS AT THE [facility] Last Admin: 09/02/17 21:18 Dose: 100 mg Zolpidem Tartrate (Ambien -) 10 mg PO HS PRN PRN Reason: INSOMNIA Last Admin: 09/02/17 21:19 Dose: 10 mg - Objective Vital Signs: Vital Signs Temperature 97.7 F 09/03/17 14:28 Pulse Rate 99 H 09/03/17 14:28 Respiratory Rate 18 09/03/17 14:28 Blood Pressure 98/61 09/03/17 14:28 O2 Sat by Pulse Oximetry (%) 100 09/03/17 09:00 Labs: CBC, BMP 08/31/17 06:30
[2017-09-03] MEDS: DOCUSATE SODIUM 100 MG CAPSULE (FP) PO SCH (22:09)
[2017-09-03] MEDS: THIAMINE HCL 100 MG TABLET (FP) PO SCH (22:10)
[2017-09-04] MEDS: ZOLPIDEM TARTRATE 5 MG TABLET PO PRN
[2017-09-04] MEDS: PIPERACILLIN/TAZOB 3.375 GM 50 ML IVPB SCH ×2 (02:12→12:16)
[2017-09-04] MEDS: ALPRAZolam 2 MG TABLET PO PRN (03:12)
[2017-09-04] MEDS: GABAPENTIN 400 MG CAPSULE (FP) PO SCH (05:10)
[2017-09-04] MEDS: CYCLOBENZAPRINE HCL 10 MG TABLET (FP) PO SCH (05:10)
[2017-09-04] MEDS ORDERED: METHADONE HCL 5 MG TABLET PO ONE ×3 (06:00→10:00)
[2017-09-04] MEDS: FERROUS SO4 325 MG TABLET (FP) PO SCH (07:40)
[2017-09-04 08:04] VITALS: BP 91/63; PULSE 68; TEMP 97.4
[2017-09-04] MEDS: HEPARIN NA (PORCINE) 5,000 UNITS/ML 1ML VIAL SQ SCH (09:59)
[2017-09-04] MEDS: PANTOPRAZOLE 40 MG TABLET (FP) PO SCH (09:59)
[2017-09-04] MEDS: NICOTINE 21 MG/24 HOURS TOPICAL PATCH TD SCH (09:59)
[2017-09-04] MEDS ORDERED: PT OWN MED DRAWER 7, Y5N ONE ×3 (10:01→11:14)
[2017-09-04] MEDS: PRENATAL VITAMINS W/ FOLIC ACID TABLET (FP) PO SCH (10:02)
[2017-09-04] MEDS: NAPROXEN 500 MG TABLET (FP) PO SCH (10:02)
--- NOTE | 2017-09-07 18:32 | DS ---
Physical Examination Vital Signs: Vital Signs Temperature 97.4 F L 09/04/17 06:00 Pulse Rate 68 09/04/17 06:00 Respiratory Rate 16 09/04/17 06:00 Blood Pressure 91/63 09/04/17 06:00 O2 Sat by Pulse Oximetry (%) 99 09/04/17 09:00 Labs: CBC, BMP 08/31/17 06:30 Discharge Summary Reason For Visit: CELLULITIS & ABSCESS OF UPPER ARM & FOREARM Condition: Fair - Instructions Disposition: AGAINST MEDICAL ADVICE - Home Medications Comprehensive Discharge Medication List: Ambulatory Orders Albuterol Sulfate Inhaler - [Ventolin HFA Inhaler -] 2 puff IH Q4H PRN 30 Days 01/28/17 signed out AMA
--- NOTE | 2017-09-07 18:32 | PN ---
Progress Note, Physician - Objective Vital Signs: Vital Signs Temperature 97.4 F L 09/04/17 06:00 Pulse Rate 68 09/04/17 06:00 Respiratory Rate 16 09/04/17 06:00 Blood Pressure 91/63 09/04/17 06:00 O2 Sat by Pulse Oximetry (%) 99 09/04/17 09:00 Labs: CBC, BMP 08/31/17 06:30 Problem List - Problems (1) Cellulitis and abscess of upper arm and forearm Code(s): [id number] - (3) Anxiety Code(s): F41.9 - ANXIETY DISORDER, UNSPECIFIED (4) Drug withdrawal Code(s): F19.939 - OTHER PSYCHOACTIVE SUBSTANCE USE, UNSP WITH WITHDRAWAL, UNSP Qualifiers: Substance type: opioid Qualified Code(s): F11.23 - Opioid dependence with withdrawal; F11.23 - Opioid dependence with withdrawal; F11.23 - Opioid dependence with withdrawal (5) Abscess Code(s): L02.91 - CUTANEOUS ABSCESS, UNSPECIFIED
== END 2017-09-04 11:20 | disposition left against medical advice (07) | DRG 383 ==
LOC: JER 10:28 → JERBED 12:27 → J7W 21:31 → J5S 08-30 17:00
PROVIDERS: ADMIT Internal Medicine; ATTEND Internal Medicine
PROC: HZ2ZZZZ Detoxification Services for Substance Abuse Treatment (ICD-10-PCS; principal; 2017-08-30)
DX: L03.114 Cellulitis of left upper limb (principal); L03.113 Cellulitis of right upper limb; L02.414 Cutaneous abscess of left upper limb; E43 Unspecified severe protein-calorie malnutrition; J45.30 Mild persistent asthma, uncomplicated; J44.9 Chronic obstructive pulmonary disease, unspecified; L02.413 Cutaneous abscess of right upper limb; F11.23 Opioid dependence with withdrawal; F10.10 Alcohol abuse, uncomplicated; K50.90 Crohn's disease, unspecified, without complications; F17.210 Nicotine dependence, cigarettes, uncomplicated; F41.8 Other specified anxiety disorders; F19.94 Other psychoactive substance use, unspecified with psychoactive substance-induced mood disorder; D64.9 Anemia, unspecified; G47.09 Other insomnia; R64 Cachexia; Z68.1 Body mass index [BMI] 19.9 or less, adult
CPT/HCPCS: 36415; 71010-TC; 73060-TC-LT; 73060-TC-RT; 80053; 80307; 81003; 81015; 82728; 83540; 84703; 85025; 86803; 87040; 87070; 87186; 87205; 87389; 87522; 93005; 93010; 93306-TC; 99284-25; J1644

== ENCOUNTER 2018-01-12 11:20 | Inpatient (IN) | payer OTHER ==
[2018-01-12 11:30] VITALS: BMI 18.5
--- NOTE | 2018-01-12 13:04 | HP ---
COWS - Scale Resting Pulse: 1= [place] 81-100 Sweatin= Chills/Flushing Restless Observation: 3= Extraneous Movement Pupil Size: 0= Normal to Room Light Bone or Joint Aches: 2= Severe Diffuse Aches Runny Nose/ Eye Tearin= Runny Nose/Eyes GI Upset > 30mins: 2= Nausea/Diarrhea Tremor Observation: 2= Slight Tremor Visible Yawning Observation: 1= 1-2x During Session Anxiety or Irritability: 2=Irritable/Anxious Goose Flesh Skin: 3=Piloerection COWS Score: 19 CIWA Score - CIWA Score Nausea/Vomitin-Mild Nausea/No Vomiting Muscle Tremors: 4-Moderate,w/Arms Extend Anxiety: 4-Mod. Anxious/Guarded Agitation: 4-Moderately Restless Paroxysmal Sweats: 1-Minimal Palms Moist Orientation: 0-Oriented Tacttile Disturbances: 2-Mild Itch/Numbness/Burn Auditory Disturbances: 0-None Visual Disturbances: 0-None Headache: 2-Mild CIWA-Ar Total Score: 18 Admission ROS BHS - HPI Chief Complaint: withdrawal sx Allergies/Adverse Reactions: Allergies Allergy/AdvReac Type Severity Reaction Status Date / Time No Known Allergies Allergy Verified 12/25/17 11:16 History of Present Illness: 37 years old female with long history of heroin nicotine dependence has asthma weight loss and depression, patient reports that she wants her 9 years old daughter back that she wants to go to rehab after the detox patient is admitted to detox Exam Limitations: No Limitations - Ebola screening Have you traveled outside of the country in the last 21 days: No Have you had contact with anyone from an Ebola affected area: No Have you been sick,other than usual withdrawal symptoms: No Do you have a fever: No - Review of Systems Constitutional: Loss of Appetite, Changes in sleep, Unintentional Wgt. Loss, Unexplained wgt Loss EENT: reports: No Symptoms Reported Respiratory: reports: SOB with Exertion Cardiac: reports: No Symptoms Reported GI: reports: Diarrhea, Nausea, Poor Appetite, Poor Fluid Intake, Indigestion, Abdominal cramping : reports: No Symptoms Reported Musculoskeletal: reports: Back Pain, Joint Pain, Muscle Pain, Neck Pain Integumentary: reports: Change in Color (arms + feet) Neuro: reports: Seizure (2016), Tremors Endocrine: reports: No Symptoms Reported Hematology: reports: No Symptoms Reported Psychiatric: reports: Judgement Intact, Orientated x3, Anxious, Depressed Other Systems: Reviewed and Negative Patient History - Patient Medical History Hx Anemia: No Hx Asthma: Yes Hx Chronic Obstructive Pulmonary Disease (COPD): No Hx Cancer: No Hx Cardiac Disorders: No Hx Congestive Heart Failure: No Hx Hypertension: No Hx Hypercholesterolemia: No Hx Pacemaker: No HX Cerebrovascular Accident: No Hx Seizures: Yes (ETOH related.2015) Hx Dementia: No Hx Diabetes: No Hx Gastrointestinal Disorders: Yes Hx Liver Disease: No Hx Genitourinary Disorders: No Hx Sexually Transmitted Disorders: No Hx Renal Disease (ESRD): No Hx Thyroid Disease: No Hx Human Immunodeficiency Virus (HIV): No Hx Hepatitis C: No Hx Depression: Yes Hx Suicide Attempt: No Hx Bipolar Disorder: No Hx Schizophrenia: No - Patient Surgical History Past Surgical History: Yes Hx Neurologic Surgery: No Hx Cataract Extraction: No Hx Cardiac Surgery: No Hx Lung Surgery: No Hx Breast Surgery: No Hx Breast Biopsy: No Hx Abdominal Surgery: Yes Hx Appendectomy: No Hx Cholecystectomy: No Hx Genitourinary Surgery: No Hx Section: Yes (2007) Hx Orthopedic Surgery: No Hx Hysterectomy: No Anesthesia Reaction: No - PPD History Previous Implant?: Yes Documented Results: Negative w/proof Implanted On Prior R Admission?: Yes Date: 07/31/16 Results: 0 mm PPD to be Administered?: Yes - Reproductive History Patient is a Female of Child Bearing Age (11 -55 yrs old): Yes Last Menstrual Period: 01/12/09 Patient : No - Smoking Cessation Smoking history: Current every day smoker Have you smoked in the past 12 months: Yes Aproximately how many cigarettes per day: 20 Cigars Per Day: 0 Hx Chewing Tobacco Use: No Initiated information on smoking cessation: Yes 'Breaking Loose' booklet given: 01/12/18 - Substance & Tx. History Hx Alcohol Use: No Hx Substance Use: Yes Substance Use Type: Opiates, Tranquilizers Hx Substance Use Treatment: Yes (12/2016 [facility]) - Substances Abused Alprazolam (Xanax) Frequency: Daily Amount used: 8 mg Age of first use: 36 Date of Last Use: 01/12/18 Diazepam Route: Oral Frequency: Daily Amount used: 40 g Age of first use: 36 Date of Last Use: 01/12/18 Heroin Route: Inhalation Frequency: Daily Amount used: 40 bags Age of first use: 35 Date of Last Use: 01/12/18 Family Disease History - Family Disease History Family Disease History: Diabetes: Mother, CA: Father (STOMACH) Admission Physical Exam [facility] - Vital Signs Vital Signs: Vital Signs - 24 hr 01/12/18 11:25 Temperature 98.0 F Pulse Rate 96 H Respiratory 18 Rate Blood Pressure 105/76 - Physical General Appearance: Yes: Appropriately Dressed, Moderate Distress, Thin, Tremorous, Irritable, Sweating, Anxious HEENTM: Yes: Hearing grossly Normal, Normal ENT Inspection, Normocephalic, Normal Voice Respiratory: Yes: Chest Non-Tender, No Respiratory Distress, No Accessory Muscle Use, Wheezing, Expiration Neck: Yes: Supple, Trachea in good position Breast: Yes: Breasts Symetrical Cardiology: Yes: Regular Rhythm, S1, S2, Tachycardia Abdominal: Yes: Non Tender, Soft, Increased Bowel Sounds Genitourinary: Yes: Within Normal Limits Back: Yes: Normal Inspection Musculoskeletal: Yes: full range of Motion, Gait Steady, Back pain, Muscle Pain Extremities: Yes: Normal Range of Motion, Non-Tender, Tremors Neurological: Yes: Alert, Motor Strength 5/5, Normal Response, Depressed Affect Integumentary: Yes: Warm, Track [place] Lymphatic: Yes: Within Normal Limits - Diagnostic (1) Nicotine dependence Current Visit: Yes Status: Acute Qualifiers: Nicotine product type: cigarettes Substance use status: in withdrawal Qualified Code(s): F17.213 - Nicotine dependence, cigarettes, with withdrawal (2) Opioid dependence with withdrawal Current Visit: Yes Status: Acute (3) Sedative, hypnotic or anxiolytic dependence with withdrawal, uncomplicated Current Visit: Yes Status: Acute (4) Weight loss Current Visit: Yes Status: Acute (5) Asthma Current Visit: Yes Status: Chronic Qualifiers: Asthma severity: moderate Asthma complication type: with status asthmaticus (6) GERD (gastroesophageal reflux disease) Current Visit: Yes Status: Chronic Qualifiers: Esophagitis presence: without esophagitis Qualified Code(s): K21.9 - Gastro -esophageal reflux disease without esophagitis Cleared for Admission S - Detox or Rehab S Level of Care: Medically Managed Detox Regimen/Protocol: Methadone/Valium S Breath Alcohol Content Breath Alcohol Content: 0 Urine Pregancy Test - Result Urine Test Results: Negative- NO Line Present Urine Drug Screen - Results Drug Screen Negative: No Urine Drug Screen Results: OPI-Opiates, BZO-Benzodiazepines, TCA-Tricyclic Antidepress
[2018-01-12] MEDS ORDERED: MAG HYDROX/AL HYDROX/SIMETH 30 ML UNIT-DOSE CUP PO PRN (13:20)
[2018-01-12] MEDS ORDERED: NICOTINE POLACRILEX 4 MG GUM BC PRN (13:20)
[2018-01-12] MEDS ORDERED: LOPERAMIDE HCL 2 MG CAPSULE PO PRN (13:20)
[2018-01-12] MEDS ORDERED: guaiFENesin/D-METHORPHAN HB 10 ML UNIT-DOSE CUPS PO PRN (13:20)
[2018-01-12] MEDS ORDERED: P-EPHED 60MG/TRIPROLIDI 2.5MG TABLET PO PRN (13:20)
[2018-01-12] MEDS ORDERED: MENTHOL/PHENOL 1 EACH UD MM PRN (13:20)
[2018-01-12] MEDS ORDERED: MAGNESIUM CITRATE 300 ML BOTTLE PO PRN (13:20)
[2018-01-12] MEDS ORDERED: MAGNESIUM HYDROX 2400MG/30ML ORAL SUSPENSION 30 ML CUP PO PRN (13:20)
[2018-01-12] MEDS ORDERED: ALBUTEROL SO4 18 GM HFA INHALER IH PRN (13:24)
[2018-01-12] MEDS ORDERED: ALBUTEROL SO4 0.083% IH SOL 2.5 MG/3 ML VIAL.NEB. NEB PRN (13:26)
[2018-01-12] MEDS ORDERED: diazePAM 5 MG TABLET PO ONE (17:30)
[2018-01-12] MEDS ORDERED: METHADONE HCL 10 MG TABLET (FOR DETOX USE ONLY) PO ONE ×2 (17:30→23:00)
[2018-01-12] MEDS ORDERED: BACITRACIN 0.9 GM PACKET TP ONE (17:30)
[2018-01-12] MEDS ORDERED: METHOCARBAMOL 500 MG TABLET PO SCH (18:00)
[2018-01-12] MEDS: RANITIDINE HCL 150 MG TABLET (FP) PO SCH ×2 (18:13→22:24)
[2018-01-12] MEDS: NICOTINE 21 MG/24 HOURS TOPICAL PATCH TD SCH (18:15)
[2018-01-12 21:33] LABS: URINE APPEARANCE CLOUDY; URINE BILIRUBIN NEGATIVE (NEGATIVE); URINE BLOOD NEGATIVE (NEGATIVE); URINE COLOR YELLOW; URINE GLUCOSE (UA) NEGATIVE (NEGATIVE); URINE KETONE NEGATIVE (NEGATIVE); URINE LEUK ESTERASE NEGATIVE (NEGATIVE); URINE NITRITE NEGATIVE (NEGATIVE); URINE PROTEIN NEGATIVE (NEGATIVE); URINE UROBILINOGEN NEGATIVE mg/dL (0.2-1.0)
[2018-01-12] MEDS: THIAMINE HCL 100 MG TABLET (FP) PO SCH (22:24)
[2018-01-12] MEDS: GABAPENTIN 300 MG CAPSULE (FP) PO SCH (22:24)
[2018-01-12] MEDS: CYCLOBENZAPRINE HCL 5 MG TABLET PO SCH (22:24)
[2018-01-12] MEDS: diazePAM 5 MG TABLET PO SCH (23:14)
[2018-01-12] MEDS: diazePAM 5 MG TABLET PO PRN (23:27)
[2018-01-13] MEDS: CYCLOBENZAPRINE HCL 5 MG TABLET PO SCH ×3 (05:21→22:40)
[2018-01-13] MEDS: diazePAM 5 MG TABLET PO SCH ×3 (05:21→22:40)
[2018-01-13] MEDS: GABAPENTIN 300 MG CAPSULE (FP) PO SCH ×3 (05:21→22:40)
[2018-01-13] MEDS: ONDANSETRON *ODT* 4 MG TABLET SL PRN ×2 (08:59→18:01)
[2018-01-13] MEDS ORDERED: METHADONE HCL 10 MG TABLET (FOR DETOX USE ONLY) PO SCH (10:00)
--- NOTE | 2018-01-13 10:11 | PN ---
[facility] CIWA - CIWA Score Nausea/Vomitin-No Nausea/No Vomiting Muscle Tremors: 4-Moderate,w/Arms Extend Anxiety: 3 Agitation: 3 Paroxysmal Sweats: 3 Orientation: 0-Oriented Tacttile Disturbances: 0-None Auditory Disturbances: 0-None Visual Disturbances: 0-None Headache: 0-None Present CIWA-Ar Total Score: 13 BHS COWS - Scale Resting Pulse: 1= [place] 81-100 Sweatin=Flushed/Facial Moisture Restless Observation: 1= Difficult to Sit Still Pupil Size: 0= Normal to Room Light Bone or Joint Aches: 1= Mild Discomfort Runny Nose/ Eye Tearin= Nasal Congestion GI Upset > 30mins: 1= Stomach Cramp Tremor Observation of Outstretched Hands: 2= Slight Tremor Visible Yawning Observation: 2= >3x During Session Anxiety or Irritability: 2=Irritable/Anxious Goose Flesh Skin: 0=Smooth Skin COWS Score: 13 S Progress Note (SOAP) Subjective: nausea sweats shakes interrupted sleep agitation irritable body aches Objective: 01/13/18 10:10 Vital Signs Temperature 98.1 F 01/13/18 06:00 Pulse Rate 90 01/13/18 06:00 Respiratory Rate 16 01/13/18 06:00 Blood Pressure 101/77 01/13/18 06:00 O2 Sat by Pulse Oximetry (%) Laboratory Tests 01/12/18 21:00 Urine Color Yellow Urine Appearance Cloudy Urine pH 8.0 Ur Specific [place] 1.023 Urine Protein Negative Urine Glucose (UA) Negative Urine Ketones Negative Urine Blood Negative Urine Nitrite Negative Urine Bilirubin Negative Urine Urobilinogen Negative Ur Leukocyte Esterase Negative labs pending aaox3 ambulating no acute distress Assessment: 01/13/18 10:10 withdrawal sx Plan: continue detox increase fluids labs pending
[2018-01-13 10:12] LABS: HEMATOCRIT 30.6 % (32.4-45.2); HEMOGLOBIN 10.1 GM/dL (10.7-15.3); MCH 26.4 pg (25.7-33.7); MEAN CELL VOLUME 80.1 fl (80-96); MEAN PLT VOLUME 7.7 fl (7.5-11.1); PLATELET COUNT 442 K/MM3 (134-434); RBC 3.82 M/mm3 (3.60-5.2); RDW 17.9 % (11.6-15.6); WHITE BLOOD COUNT 9.3 K/mm3 (4.0-10.0)
[2018-01-13 10:18] LABS: CHLORIDE 94 mmol/L (98-107); POTASSIUM 3.2 mmol/L (3.5-5.1); SODIUM 135 mmol/L (136-145)
[2018-01-13] MEDS: diazePAM 5 MG TABLET PO PRN ×2 (10:25→16:53)
[2018-01-13] MEDS: RANITIDINE HCL 150 MG TABLET (FP) PO SCH ×2 (10:25→22:40)
[2018-01-13] MEDS: NICOTINE 21 MG/24 HOURS TOPICAL PATCH TD SCH (10:25)
[2018-01-13] MEDS: PRENATAL VITAMINS W/ FOLIC ACID TABLET (FP) PO SCH (10:25)
[2018-01-13] MEDS: LIDOCAINE 5% TOPICAL PATCH TP SCH (10:26)
--- NOTE | 2018-01-13 10:30 | EKG ---
Test Reason : Blood Pressure : / mmHG Vent. Rate : 082 BPM Atrial Rate : 082 BPM P-R Int : 174 ms QRS Dur : 086 ms QT Int : 398 ms P-R-T Axes : 064 023 052 degrees QTc Int : 464 ms NORMAL SINUS RHYTHM WHEN COMPARED WITH ECG OF 29-AUG-2017 13:45, NO SIGNIFICANT CHANGE WAS FOUND Confirmed by NIK GRANT MD ([id number]) on 01/13/2018 10:30:43 AM Referred By: Confirmed By:NIK GRANT MD
[2018-01-13 10:36] LABS: ALBUMIN 3.2 g/dl (3.4-5.0); ALK PHOS 70 U/L (45-117); ANION GAP 9 (8-16); BILIRUBIN,TOTAL 0.3 mg/dL (0.2-1.0); BLOOD UREA NITROGEN 12 mg/dL (7-18); CALCIUM 8.5 mg/dL (8.5-10.1); CO2 32 mmol/L (21-32); CREATININE 0.5 mg/dL (0.55-1.02); GLUCOSE,RANDOM 113 mg/dL (74-106); SGOT/AST 35 U/L (15-37); SGPT/ALT 41 U/L (12-78)
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
[2018-01-13] MEDS: ACETAMINOPHEN 325 MG TABLET (FP) PO PRN (18:26)
[2018-01-13] MEDS: traZODone HCL 50 MG TABLET (FP) PO SCH (22:40)
[2018-01-13] MEDS: THIAMINE HCL 100 MG TABLET (FP) PO SCH (22:40)
[2018-01-13] MEDS: LIDOCAINE PATCH REMOVAL MC SCH (23:32)
[2018-01-14] MEDS: diazePAM 5 MG TABLET PO PRN ×2 (05:26→13:13)
[2018-01-14] MEDS: CYCLOBENZAPRINE HCL 5 MG TABLET PO SCH ×3 (05:26→22:26)
[2018-01-14] MEDS: GABAPENTIN 300 MG CAPSULE (FP) PO SCH ×3 (05:26→22:26)
[2018-01-14] MEDS: METHADONE HCL 5 MG TABLET (FOR DETOX USE ONLY) PO SCH (09:34)
[2018-01-14] MEDS: diazePAM 5 MG TABLET PO SCH ×2 (09:34→22:26)
[2018-01-14] MEDS: RANITIDINE HCL 150 MG TABLET (FP) PO SCH ×2 (09:34→22:26)
[2018-01-14] MEDS: PRENATAL VITAMINS W/ FOLIC ACID TABLET (FP) PO SCH (09:35)
[2018-01-14] MEDS: LIDOCAINE 5% TOPICAL PATCH TP SCH (09:35)
[2018-01-14] MEDS: NICOTINE 21 MG/24 HOURS TOPICAL PATCH TD SCH (09:36)
[2018-01-14] MEDS: ACETAMINOPHEN 325 MG TABLET (FP) PO PRN ×2 (14:07→22:25)
--- NOTE | 2018-01-14 14:56 | PN ---
S CIWA - CIWA Score Nausea/Vomitin Muscle Tremors: 3 Anxiety: 3 Agitation: 2 Paroxysmal Sweats: 1-Minimal Palms Moist Orientation: 0-Oriented Tacttile Disturbances: 1-Very Mild Itch/Numbness Auditory Disturbances: 1-Very Mild Visual Disturbances: 0-None Headache: 2-Mild CIWA-Ar Total Score: 16 BHS COWS - Scale Resting Pulse: 1= [place] 81-100 Sweatin= Chills/Flushing Restless Observation: 3= Extraneous Movement Pupil Size: 1= Pupils >than Normal Bone or Joint Aches: 2= Severe Diffuse Aches Runny Nose/ Eye Tearin= Runny Nose/Eyes GI Upset > 30mins: 2= Nausea/Diarrhea Tremor Observation of Outstretched Hands: 2= Slight Tremor Visible Yawning Observation: 1= 1-2x During Session Anxiety or Irritability: 2=Irritable/Anxious Goose Flesh Skin: 0=Smooth Skin COWS Score: 17 S Progress Note (SOAP) Subjective: ALERT,IRRITABLE,ANXIOUS,INTERRUPTED SLEEP,TREMOR,INTERRUPTED SLEEP Objective: 01/14/18 14:54 Vital Signs Temperature 99.0 F 01/14/18 11:49 Pulse Rate 93 H 01/14/18 11:49 Respiratory Rate 16 01/14/18 11:49 Blood Pressure 117/67 01/14/18 11:49 O2 Sat by Pulse Oximetry (%) EKG NSR,NORMAL ECG 01/14/18 14:55 Laboratory Last Values WBC 9.3 K/mm3 (4.0-10.0) 01/13/18 05:45 RBC 3.82 M/mm3 (3.60-5.2) 01/13/18 05:45 Hgb 10.1 GM/dL (10.7-15.3) L 01/13/18 05:45 Hct 30.6 % (32.4-45.2) L 01/13/18 05:45 MCV 80.1 fl (80-96) 01/13/18 05:45 MCH 26.4 pg (25.7-33.7) 01/13/18 05:45 MCHC 33.0 g/dl (32.0-36.0) 01/13/18 05:45 RDW 17.9 % (11.6-15.6) H 01/13/18 05:45 Plt Count 442 K/MM3 (134-434) H 01/13/18 05:45 MPV 7.7 fl (7.5-11.1) 01/13/18 05:45 Sodium 135 mmol/L (136-145) L 01/13/18 05:45 Potassium 3.2 mmol/L (3.5-5.1) L 01/13/18 05:45 Chloride 94 mmol/L (98-107) L 01/13/18 05:45 Carbon Dioxide 32 mmol/L (21-32) 01/13/18 05:45 Anion Gap 9 (8-16) 01/13/18 05:45 BUN 12 mg/dL (7-18) 01/13/18 05:45 Creatinine 0.5 mg/dL (0.55-1.02) L 01/13/18 05:45 Creat Clearance w eGFR > 60 (>60) 01/13/18 05:45 Random Glucose 113 mg/dL (74-106) H 01/13/18 05:45 Calcium 8.5 mg/dL (8.5-10.1) 01/13/18 05:45 Total Bilirubin 0.3 mg/dL (0.2-1.0) 01/13/18 05:45 AST 35 U/L (15-37) 01/13/18 05:45 ALT 41 U/L (12-78) 01/13/18 05:45 Alkaline Phosphatase 70 U/L (45-117) 01/13/18 05:45 Total Protein 7.0 g/dl (6.4-8.2) 01/13/18 05:45 Albumin 3.2 g/dl (3.4-5.0) L 01/13/18 05:45 Urine Color Yellow 01/12/18 21:00 Urine Appearance Cloudy 01/12/18 21:00 Urine pH 8.0 (5.0-8.0) 01/12/18 21:00 Ur Specific [place] 1.023 (1.001-1.035) 01/12/18 21:00 Urine Protein Negative (NEGATIVE) 01/12/18 21:00 Urine Glucose (UA) Negative (NEGATIVE) 01/12/18 21:00 Urine Ketones Negative (NEGATIVE) 01/12/18 21:00 Urine Blood Negative (NEGATIVE) 01/12/18 21:00 Urine Nitrite Negative (NEGATIVE) 01/12/18 21:00 Urine Bilirubin Negative (NEGATIVE) 01/12/18 21:00 Urine Urobilinogen Negative mg/dL (0.2-1.0) 01/12/18 21:00 Ur Leukocyte Esterase Negative (NEGATIVE) 01/12/18 21:00 RPR Titer Nonreactive (NONREACTIVE) 01/13/18 05:45 Assessment: 01/14/18 14:56 WITHDRAWAL SYMPTOM Plan: CONTINUE DETOX,K DUR 20 MEQ PO BID,BGM MONITORING
[2018-01-14] MEDS ORDERED: POTASSIUM CHLORIDE TABS 20 MEQ TABLET.ER (FP) PO ONE (15:30)
[2018-01-14] MEDS: ONDANSETRON *ODT* 4 MG TABLET SL PRN (17:30)
[2018-01-14] MEDS: DOCUSATE SODIUM 100 MG CAPSULE (FP) PO SCH (22:26)
[2018-01-14] MEDS: traZODone HCL 50 MG TABLET (FP) PO SCH (22:26)
[2018-01-14] MEDS: FERROUS SO4 325 MG TABLET (FP) PO SCH (22:26)
[2018-01-14] MEDS: THIAMINE HCL 100 MG TABLET (FP) PO SCH (22:26)
[2018-01-14] MEDS: POTASSIUM CHLORIDE TABS 20 MEQ TABLET.ER (FP) PO SCH (22:26)
[2018-01-14] MEDS: LIDOCAINE PATCH REMOVAL MC SCH (23:10)
[2018-01-15] MEDS: ONDANSETRON *ODT* 4 MG TABLET SL PRN ×2 (02:21→11:34)
[2018-01-15] MEDS: diazePAM 5 MG TABLET PO PRN ×2 (02:22→06:21)
[2018-01-15] MEDS: DOCUSATE SODIUM 100 MG CAPSULE (FP) PO SCH ×3 (06:19→22:27)
[2018-01-15] MEDS: GABAPENTIN 300 MG CAPSULE (FP) PO SCH ×3 (06:19→22:27)
[2018-01-15] MEDS: CYCLOBENZAPRINE HCL 5 MG TABLET PO SCH ×3 (06:19→22:27)
[2018-01-15] MEDS: METHADONE HCL 5 MG TABLET (FOR DETOX USE ONLY) PO SCH (09:46)
[2018-01-15] MEDS: FERROUS SO4 325 MG TABLET (FP) PO SCH ×2 (09:46→22:27)
[2018-01-15] MEDS: PRENATAL VITAMINS W/ FOLIC ACID TABLET (FP) PO SCH (09:46)
[2018-01-15] MEDS: RANITIDINE HCL 150 MG TABLET (FP) PO SCH ×2 (09:46→22:28)
[2018-01-15] MEDS: diazePAM 5 MG TABLET PO SCH ×2 (09:47→22:29)
[2018-01-15] MEDS: NICOTINE 21 MG/24 HOURS TOPICAL PATCH TD SCH (09:48)
--- NOTE | 2018-01-15 11:12 | PN ---
S Progress Note (SOAP) Subjective: nausea vomiting history of anorexia joint aches tremor restlessness passing gas tolerate fluid well "I am in withdrawal" Objective: 01/15/18 11:09 Vital Signs Temperature 98.2 F 01/15/18 10:48 Pulse Rate 78 01/15/18 10:48 Respiratory Rate 18 01/15/18 10:48 Blood Pressure 107/78 01/15/18 10:48 O2 Sat by Pulse Oximetry (%) Laboratory Last Values WBC 9.3 K/mm3 (4.0-10.0) 01/13/18 05:45 RBC 3.82 M/mm3 (3.60-5.2) 01/13/18 05:45 Hgb 10.1 GM/dL (10.7-15.3) L 01/13/18 05:45 Hct 30.6 % (32.4-45.2) L 01/13/18 05:45 MCV 80.1 fl (80-96) 01/13/18 05:45 MCH 26.4 pg (25.7-33.7) 01/13/18 05:45 MCHC 33.0 g/dl (32.0-36.0) 01/13/18 05:45 RDW 17.9 % (11.6-15.6) H 01/13/18 05:45 Plt Count 442 K/MM3 (134-434) H 01/13/18 05:45 MPV 7.7 fl (7.5-11.1) 01/13/18 05:45 Sodium 135 mmol/L (136-145) L 01/13/18 05:45 Potassium 3.2 mmol/L (3.5-5.1) L 01/13/18 05:45 Chloride 94 mmol/L (98-107) L 01/13/18 05:45 Carbon Dioxide 32 mmol/L (21-32) 01/13/18 05:45 Anion Gap 9 (8-16) 01/13/18 05:45 BUN 12 mg/dL (7-18) 01/13/18 05:45 Creatinine 0.5 mg/dL (0.55-1.02) L 01/13/18 05:45 Creat Clearance w eGFR > 60 (>60) 01/13/18 05:45 Random Glucose 113 mg/dL (74-106) H 01/13/18 05:45 Calcium 8.5 mg/dL (8.5-10.1) 01/13/18 05:45 Total Bilirubin 0.3 mg/dL (0.2-1.0) 01/13/18 05:45 AST 35 U/L (15-37) 01/13/18 05:45 ALT 41 U/L (12-78) 01/13/18 05:45 Alkaline Phosphatase 70 U/L (45-117) 01/13/18 05:45 Total Protein 7.0 g/dl (6.4-8.2) 01/13/18 05:45 Albumin 3.2 g/dl (3.4-5.0) L 01/13/18 05:45 Urine Color Yellow 01/12/18 21:00 Urine Appearance Cloudy 01/12/18 21:00 Urine pH 8.0 (5.0-8.0) 01/12/18 21:00 Ur Specific [place] 1.023 (1.001-1.035) 01/12/18 21:00 Urine Protein Negative (NEGATIVE) 01/12/18 21:00 Urine Glucose (UA) Negative (NEGATIVE) 01/12/18 21:00 Urine Ketones Negative (NEGATIVE) 01/12/18 21:00 Urine Blood Negative (NEGATIVE) 01/12/18 21:00 Urine Nitrite Negative (NEGATIVE) 01/12/18 21:00 Urine Bilirubin Negative (NEGATIVE) 01/12/18 21:00 Urine Urobilinogen Negative mg/dL (0.2-1.0) 01/12/18 21:00 Ur Leukocyte Esterase Negative (NEGATIVE) 01/12/18 21:00 RPR Titer Nonreactive (NONREACTIVE) 01/13/18 05:45 lab noted continue potassium supplement Assessment: 01/15/18 11:10 withdrawal sx 01/15/18 11:12 history of eating disorder Plan: continue detox increase zofran to 8 mg po prn senna ii po hs hard stool from ferrous sulfate
[2018-01-15] MEDS: POTASSIUM CHLORIDE TABS 20 MEQ TABLET.ER (FP) PO SCH ×2 (11:23→22:27)
[2018-01-15] MEDS: LIDOCAINE 5% TOPICAL PATCH TP SCH (11:23)
[2018-01-15] MEDS: THIAMINE HCL 100 MG TABLET (FP) PO SCH (22:26)
[2018-01-15] MEDS: hydrOXYzine PAMOATE 50 MG CAPSULE (FP) PO PRN (22:26)
[2018-01-15] MEDS: traZODone HCL 50 MG TABLET (FP) PO SCH (22:27)
[2018-01-15] MEDS: LIDOCAINE PATCH REMOVAL MC SCH (23:06)
[2018-01-16] MEDS: DOCUSATE SODIUM 100 MG CAPSULE (FP) PO SCH ×3 (06:00→22:20)
[2018-01-16] MEDS: GABAPENTIN 300 MG CAPSULE (FP) PO SCH ×3 (06:00→22:21)
[2018-01-16] MEDS: CYCLOBENZAPRINE HCL 5 MG TABLET PO SCH ×3 (06:00→22:21)
[2018-01-16] MEDS: hydrOXYzine PAMOATE 50 MG CAPSULE (FP) PO PRN ×4 (06:00→22:22)
--- NOTE | 2018-01-16 09:07 | PN ---
[facility] Progress Note (SOAP) Subjective: alert oriented x 3 able to tolerate food and fluid well coherent social with peers for support Objective: 01/16/18 09:07 Vital Signs Temperature 98.2 F 01/16/18 06:00 Pulse Rate 97 H 01/16/18 06:00 Respiratory Rate 16 01/16/18 06:00 Blood Pressure 129/86 01/16/18 06:00 O2 Sat by Pulse Oximetry (%) Laboratory Last Values WBC 9.3 K/mm3 (4.0-10.0) 01/13/18 05:45 RBC 3.82 M/mm3 (3.60-5.2) 01/13/18 05:45 Hgb 10.1 GM/dL (10.7-15.3) L 01/13/18 05:45 Hct 30.6 % (32.4-45.2) L 01/13/18 05:45 MCV 80.1 fl (80-96) 01/13/18 05:45 MCH 26.4 pg (25.7-33.7) 01/13/18 05:45 MCHC 33.0 g/dl (32.0-36.0) 01/13/18 05:45 RDW 17.9 % (11.6-15.6) H 01/13/18 05:45 Plt Count 442 K/MM3 (134-434) H 01/13/18 05:45 MPV 7.7 fl (7.5-11.1) 01/13/18 05:45 Sodium 135 mmol/L (136-145) L 01/13/18 05:45 Potassium 3.2 mmol/L (3.5-5.1) L 01/13/18 05:45 Chloride 94 mmol/L (98-107) L 01/13/18 05:45 Carbon Dioxide 32 mmol/L (21-32) 01/13/18 05:45 Anion Gap 9 (8-16) 01/13/18 05:45 BUN 12 mg/dL (7-18) 01/13/18 05:45 Creatinine 0.5 mg/dL (0.55-1.02) L 01/13/18 05:45 Creat Clearance w eGFR > 60 (>60) 01/13/18 05:45 Random Glucose 113 mg/dL (74-106) H 01/13/18 05:45 Calcium 8.5 mg/dL (8.5-10.1) 01/13/18 05:45 Total Bilirubin 0.3 mg/dL (0.2-1.0) 01/13/18 05:45 AST 35 U/L (15-37) 01/13/18 05:45 ALT 41 U/L (12-78) 01/13/18 05:45 Alkaline Phosphatase 70 U/L (45-117) 01/13/18 05:45 Total Protein 7.0 g/dl (6.4-8.2) 01/13/18 05:45 Albumin 3.2 g/dl (3.4-5.0) L 01/13/18 05:45 Urine Color Yellow 01/12/18 21:00 Urine Appearance Cloudy 01/12/18 21:00 Urine pH 8.0 (5.0-8.0) 01/12/18 21:00 Ur Specific [place] 1.023 (1.001-1.035) 01/12/18 21:00 Urine Protein Negative (NEGATIVE) 01/12/18 21:00 Urine Glucose (UA) Negative (NEGATIVE) 01/12/18 21:00 Urine Ketones Negative (NEGATIVE) 01/12/18 21:00 Urine Blood Negative (NEGATIVE) 01/12/18 21:00 Urine Nitrite Negative (NEGATIVE) 01/12/18 21:00 Urine Bilirubin Negative (NEGATIVE) 01/12/18 21:00 Urine Urobilinogen Negative mg/dL (0.2-1.0) 01/12/18 21:00 Ur Leukocyte Esterase Negative (NEGATIVE) 01/12/18 21:00 RPR Titer Nonreactive (NONREACTIVE) 01/13/18 05:45 lab noted Assessment: 01/16/18 09:09 mild withdrawal sx Plan: medically supervised detox continue potassium supplement
[2018-01-16] MEDS: FERROUS SO4 325 MG TABLET (FP) PO SCH ×2 (09:34→22:20)
[2018-01-16] MEDS: RANITIDINE HCL 150 MG TABLET (FP) PO SCH ×2 (09:34→22:20)
[2018-01-16] MEDS: ONDANSETRON *ODT* 4 MG TABLET SL PRN (09:34)
[2018-01-16] MEDS: POTASSIUM CHLORIDE TABS 20 MEQ TABLET.ER (FP) PO SCH ×2 (09:34→22:20)
[2018-01-16] MEDS: PRENATAL VITAMINS W/ FOLIC ACID TABLET (FP) PO SCH (09:39)
[2018-01-16] MEDS: NICOTINE 21 MG/24 HOURS TOPICAL PATCH TD SCH (09:39)
[2018-01-16] MEDS: LIDOCAINE 5% TOPICAL PATCH TP SCH (09:39)
[2018-01-16] MEDS ORDERED: diazePAM 5 MG TABLET PO SCH (10:00)
[2018-01-16] MEDS ORDERED: METHADONE HCL 10 MG TABLET (FOR DETOX USE ONLY) PO SCH (10:00)
[2018-01-16] MEDS: THIAMINE HCL 100 MG TABLET (FP) PO SCH (22:20)
[2018-01-16] MEDS: traZODone HCL 50 MG TABLET (FP) PO SCH (22:20)
[2018-01-16] MEDS: LIDOCAINE PATCH REMOVAL MC SCH (22:43)
[2018-01-17] MEDS: hydrOXYzine PAMOATE 50 MG CAPSULE (FP) PO PRN ×2 (02:13→10:46)
[2018-01-17] MEDS ORDERED: METHADONE HCL 5 MG TABLET (FOR DETOX USE ONLY) PO SCH (06:00)
[2018-01-17] MEDS: GABAPENTIN 300 MG CAPSULE (FP) PO SCH (06:20)
[2018-01-17] MEDS: DOCUSATE SODIUM 100 MG CAPSULE (FP) PO SCH (06:20)
[2018-01-17] MEDS: CYCLOBENZAPRINE HCL 5 MG TABLET PO SCH (06:20)
[2018-01-17 06:53] VITALS: BP 109/83; PULSE 93; TEMP 98.2
--- NOTE | 2018-01-17 09:22 | DS ---
[facility] Detox Discharge Summary Admission Date: 01/12/18 Discharge Date: 01/17/18 - History Present History: Opioid Dependence, Sedative Dependence - Physical Exam Results Vital Signs: Vital Signs Temperature 98.2 F 01/17/18 06:00 Pulse Rate 93 H 01/17/18 06:00 Respiratory Rate 18 01/17/18 06:00 Blood Pressure 109/83 01/17/18 06:00 O2 Sat by Pulse Oximetry (%) Pertinent Admission Physical Exam Findings: withdrawal sx Vital Signs Temperature 98.2 F 01/17/18 06:00 Pulse Rate 93 H 01/17/18 06:00 Respiratory Rate 18 01/17/18 06:00 Blood Pressure 109/83 01/17/18 06:00 O2 Sat by Pulse Oximetry (%) Laboratory Last Values WBC 9.3 K/mm3 (4.0-10.0) 01/13/18 05:45 RBC 3.82 M/mm3 (3.60-5.2) 01/13/18 05:45 Hgb 10.1 GM/dL (10.7-15.3) L 01/13/18 05:45 Hct 30.6 % (32.4-45.2) L 01/13/18 05:45 MCV 80.1 fl (80-96) 01/13/18 05:45 MCH 26.4 pg (25.7-33.7) 01/13/18 05:45 MCHC 33.0 g/dl (32.0-36.0) 01/13/18 05:45 RDW 17.9 % (11.6-15.6) H 01/13/18 05:45 Plt Count 442 K/MM3 (134-434) H 01/13/18 05:45 MPV 7.7 fl (7.5-11.1) 01/13/18 05:45 Sodium 135 mmol/L (136-145) L 01/13/18 05:45 Potassium 3.2 mmol/L (3.5-5.1) L 01/13/18 05:45 Chloride 94 mmol/L (98-107) L 01/13/18 05:45 Carbon Dioxide 32 mmol/L (21-32) 01/13/18 05:45 Anion Gap 9 (8-16) 01/13/18 05:45 BUN 12 mg/dL (7-18) 01/13/18 05:45 Creatinine 0.5 mg/dL (0.55-1.02) L 01/13/18 05:45 Creat Clearance w eGFR > 60 (>60) 01/13/18 05:45 Random Glucose 113 mg/dL (74-106) H 01/13/18 05:45 Calcium 8.5 mg/dL (8.5-10.1) 01/13/18 05:45 Total Bilirubin 0.3 mg/dL (0.2-1.0) 01/13/18 05:45 AST 35 U/L (15-37) 01/13/18 05:45 ALT 41 U/L (12-78) 01/13/18 05:45 Alkaline Phosphatase 70 U/L (45-117) 01/13/18 05:45 Total Protein 7.0 g/dl (6.4-8.2) 01/13/18 05:45 Albumin 3.2 g/dl (3.4-5.0) L 01/13/18 05:45 Urine Color Yellow 01/12/18 21:00 Urine Appearance Cloudy 01/12/18 21:00 Urine pH 8.0 (5.0-8.0) 01/12/18 21:00 Ur Specific [place] 1.023 (1.001-1.035) 01/12/18 21:00 Urine Protein Negative (NEGATIVE) 01/12/18 21:00 Urine Glucose (UA) Negative (NEGATIVE) 01/12/18 21:00 Urine Ketones Negative (NEGATIVE) 01/12/18 21:00 Urine Blood Negative (NEGATIVE) 01/12/18 21:00 Urine Nitrite Negative (NEGATIVE) 01/12/18 21:00 Urine Bilirubin Negative (NEGATIVE) 01/12/18 21:00 Urine Urobilinogen Negative mg/dL (0.2-1.0) 01/12/18 21:00 Ur Leukocyte Esterase Negative (NEGATIVE) 01/12/18 21:00 RPR Titer Nonreactive (NONREACTIVE) 01/13/18 05:45 lab noted received K+ supplement - Treatment Hospital Course: Detox Protocol Followed, Detoxed Safely, Responded well, Discharged Condition Good, Rehab Referral Accepted Patient has Accepted a Rehab Referral to: [facility] - Medication Discharge Medications: Ambulatory Orders traZODone HCL [Desyrel -] 150 mg PO HS 01/12/18 Albuterol Sulfate Inhaler - [Ventolin HFA Inhaler -] 2 inh PO Q4H #1 inhaler 03/31 Potassium Chloride [K-Dur -] 20 meq PO BID #28 tablet.er 01/16/18 Ranitidine [Zantac -] 150 mg PO BID #60 tablet 01/16/18 - Diagnosis (1) Nicotine dependence Current Visit: Yes Status: Acute Qualifiers: Nicotine product type: cigarettes Substance use status: in withdrawal Qualified Code(s): F17.213 - Nicotine dependence, cigarettes, with withdrawal (2) Opioid dependence with withdrawal Current Visit: Yes Status: Acute (3) Sedative, hypnotic or anxiolytic dependence with withdrawal, uncomplicated Current Visit: Yes Status: Acute (4) Weight loss Current Visit: Yes Status: Acute (5) Asthma Current Visit: Yes Status: Chronic Qualifiers: Asthma severity: mild Asthma complication type: with status asthmaticus (6) GERD (gastroesophageal reflux disease) Current Visit: Yes Status: Chronic Qualifiers: Esophagitis presence: without esophagitis Qualified Code(s): K21.9 - Gastro -esophageal reflux disease without esophagitis - AMA Did Patient Leave Against Medical Advice: No
[2018-01-17] MEDS: PRENATAL VITAMINS W/ FOLIC ACID TABLET (FP) PO SCH (10:45)
[2018-01-17] MEDS: RANITIDINE HCL 150 MG TABLET (FP) PO SCH (10:46)
[2018-01-17] MEDS: POTASSIUM CHLORIDE TABS 20 MEQ TABLET.ER (FP) PO SCH (10:46)
[2018-01-17] MEDS: FERROUS SO4 325 MG TABLET (FP) PO SCH (10:46)
[2018-01-17] MEDS: ONDANSETRON *ODT* 4 MG TABLET SL PRN (10:47)
[2018-01-17] MEDS: NICOTINE 21 MG/24 HOURS TOPICAL PATCH TD SCH (11:02)
[2018-01-17] MEDS: LIDOCAINE 5% TOPICAL PATCH TP SCH (11:02)
== END 2018-01-17 12:00 | disposition other institution (70) | DRG 773 ==
LOC: YASAS 11:20 → Y6N 17:17
PROVIDERS: ADMIT Internal Medicine; ATTEND Internal Medicine
PROC: HZ2ZZZZ Detoxification Services for Substance Abuse Treatment (ICD-10-PCS; principal; 2018-01-12)
DX: F11.23 Opioid dependence with withdrawal (principal); F13.230 Sedative, hypnotic or anxiolytic dependence with withdrawal, uncomplicated; F10.230 Alcohol dependence with withdrawal, uncomplicated; F17.213 Nicotine dependence, cigarettes, with withdrawal; F41.9 Anxiety disorder, unspecified; F19.24 Other psychoactive substance dependence with psychoactive substance-induced mood disorder; F19.282 Other psychoactive substance dependence with psychoactive substance-induced sleep disorder; E87.6 Hypokalemia; J43.1 Panlobular emphysema; J45.22 Mild intermittent asthma with status asthmaticus; K21.9 Gastro-esophageal reflux disease without esophagitis; M54.5 Low back pain; G89.29 Other chronic pain; D64.9 Anemia, unspecified; K50.919 Crohn's disease, unspecified, with unspecified complications; Z87.898 Personal history of other specified conditions; Z86.69 Personal history of other diseases of the nervous system and sense organs; E46 Unspecified protein-calorie malnutrition; Z68.1 Body mass index [BMI] 19.9 or less, adult
CPT/HCPCS: 36415; 80053; 81003; 85027; 86593; 93005; 93010

== ENCOUNTER 2018-01-17 12:20 | Inpatient (IN) | payer OTHER ==
[2018-01-17] MEDS ORDERED: LOPERAMIDE HCL 2 MG CAPSULE PO PRN (13:22)
[2018-01-17] MEDS ORDERED: MAG HYDROX/AL HYDROX/SIMETH 30 ML UNIT-DOSE CUP PO PRN (13:22)
[2018-01-17] MEDS ORDERED: MENTHOL/PHENOL 1 EACH UD MM PRN (13:22)
[2018-01-17] MEDS ORDERED: MAGNESIUM CITRATE 300 ML BOTTLE PO PRN (13:22)
[2018-01-17] MEDS ORDERED: guaiFENesin/D-METHORPHAN HB 10 ML UNIT-DOSE CUPS PO PRN (13:22)
[2018-01-17] MEDS ORDERED: P-EPHED 60MG/TRIPROLIDI 2.5MG TABLET PO PRN (13:22)
[2018-01-17] MEDS ORDERED: ACETAMINOPHEN 325 MG TABLET (FP) PO PRN (13:22)
[2018-01-17] MEDS ORDERED: IBUPROFEN 400 MG TABLET (FP) PO PRN (13:22)
[2018-01-17] MEDS ORDERED: ALBUTEROL SO4 18 GM HFA INHALER IH SCH (13:30)
[2018-01-17] MEDS ORDERED: hydrOXYzine PAMOATE 50 MG CAPSULE (FP) PO PRN (13:49)
[2018-01-17] MEDS: BACITRACIN 0.9 GM PACKET TP SCH (14:54)
[2018-01-17] MEDS: CYCLOBENZAPRINE HCL 5 MG TABLET PO SCH ×2 (15:00→22:52)
[2018-01-17] MEDS: GABAPENTIN 300 MG CAPSULE (FP) PO SCH ×2 (15:00→22:52)
[2018-01-17] MEDS: hydrOXYzine PAMOATE 50 MG CAPSULE (FP) PO PRN ×2 (15:28→22:56)
--- NOTE | 2018-01-17 15:36 | HP ---
[facility] Rehab Assess/Revision - Vital signs Vital Signs: Vital Signs Period Temp Pulse Resp BP Sys/Mayers Pulse Ox Last 24 Hr 101 18 90/61 Inpatient Rehab Admission - Initial Determination Are CD services needed?: Yes Free of communicable disease: Yes Not in need of hospitalization: Yes - Rehab Admission Criteria Previous failed treatment: Yes Poor recovery environment: Yes Comorbidities: Yes Lacks judgement: No Patient is meeting Inpatient Rehab admission criteria:: Yes
[2018-01-17] MEDS: DOCUSATE SODIUM 100 MG CAPSULE (FP) PO SCH ×2 (16:08→22:52)
--- NOTE | 2018-01-17 16:11 | PN ---
[facility] Progress Note (SOAP) Subjective: c/o protracted opioid withdrawal sx after methadone detox requesting suboxone Objective: 01/17/18 16:11 Vital Signs - 24 hr 01/17/18 13:16 Pulse Rate 101 H Respiratory 18 Rate Blood Pressure 90/61 labs reviewed Assessment: 01/17/18 16:11 oud - start mat with suboxone 4mg today and 8mg tomorrow.
[2018-01-17] MEDS ORDERED: COLLOIDAL OATMEAL 1 BAR EACH TP PRN (17:41)
[2018-01-17] MEDS: FERROUS SO4 325 MG TABLET (FP) PO SCH (17:56)
[2018-01-17] MEDS ORDERED: BUPRENORPHINE/NALOXONE 2 MG/0.5 MG FILM PACKET SL ONE (18:00)
[2018-01-17] MEDS ORDERED: traZODone HCL 150 MG TABLET PO SCH (22:00)
[2018-01-17] MEDS ORDERED: ONDANSETRON *ODT* 4 MG TABLET SL PRN (22:11)
[2018-01-17] MEDS: THIAMINE HCL 100 MG TABLET (FP) PO SCH (22:52)
[2018-01-17] MEDS: LIDOCAINE PATCH REMOVAL MC SCH (22:52)
[2018-01-17] MEDS: RANITIDINE HCL 150 MG TABLET (FP) PO SCH (22:56)
[2018-01-17] MEDS: MAGNESIUM HYDROX 2400MG/30ML ORAL SUSPENSION 30 ML CUP PO PRN (22:56)
[2018-01-17] MEDS: traZODone HCL 50 MG TABLET (FP) PO SCH (23:22)
[2018-01-18] MEDS: DOCUSATE SODIUM 100 MG CAPSULE (FP) PO SCH ×3 (06:42→22:19)
[2018-01-18] MEDS: GABAPENTIN 300 MG CAPSULE (FP) PO SCH ×3 (06:42→22:19)
[2018-01-18] MEDS: CYCLOBENZAPRINE HCL 5 MG TABLET PO SCH ×2 (06:42→13:12)
[2018-01-18] MEDS: hydrOXYzine PAMOATE 50 MG CAPSULE (FP) PO PRN ×3 (06:44→18:17)
[2018-01-18] MEDS: FERROUS SO4 325 MG TABLET (FP) PO SCH (07:15)
[2018-01-18] MEDS: PRENATAL VITAMINS W/ FOLIC ACID TABLET (FP) PO SCH (09:46)
[2018-01-18] MEDS: RANITIDINE HCL 150 MG TABLET (FP) PO SCH ×2 (09:46→22:19)
[2018-01-18] MEDS: BACITRACIN 0.9 GM PACKET TP SCH (09:46)
[2018-01-18] MEDS: LIDOCAINE 5% TOPICAL PATCH TP SCH (09:46)
[2018-01-18] MEDS: NICOTINE 14 MG/24 HOURS TOPICAL PATCH TD SCH (09:47)
[2018-01-18] MEDS ORDERED: BUPRENORPHINE/NALOXONE 8 MG/2 MG FILM PACKET SL SCH (10:00)
[2018-01-18 10:21] LABS: CHLORIDE 100 mmol/L (98-107); POTASSIUM 4.5 mmol/L (3.5-5.1); SODIUM 136 mmol/L (136-145)
[2018-01-18 10:35] LABS: ANION GAP 9 (8-16); BLOOD UREA NITROGEN 15 mg/dL (7-18); CALCIUM 8.5 mg/dL (8.5-10.1); CO2 27 mmol/L (21-32); CREATININE 0.5 mg/dL (0.55-1.02); GLUCOSE,RANDOM 76 mg/dL (74-106)
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
--- NOTE | 2018-01-18 12:41 | PN ---
[facility] Progress Note (SOAP) Subjective: patient /o opioid withdrawal sx, cravings requesting patch and increase suboxone dose Objective: 01/18/18 14:38 Vital Signs - 24 hr 01/18/18 01/18/18 03:30 07:32 Temperature 97.1 F L Pulse Rate 70 Respiratory 16 18 Rate Blood Pressure 101/70 Laboratory Tests 01/18/18 06:00 Sodium 136 Potassium 4.5 Chloride 100 Carbon Dioxide 27 Anion Gap 9 BUN 15 Creatinine 0.5 L Random Glucose 76 Calcium 8.5 labs reviewed Assessment: 01/18/18 14:39 OUD - on MAT with cravings withdrawal ordere patch incerase suboxone dose
[2018-01-18] MEDS ORDERED: ONDANSETRON *ODT* 4 MG TABLET SL ONE (14:09)
[2018-01-18] MEDS ORDERED: BUPRENORPHINE/NALOXONE 2 MG/0.5 MG FILM PACKET SL ONE (14:15)
[2018-01-18] MEDS: AMITRIPTYLINE HCL 25 MG TABLET (FP) PO SCH ×2 (14:20→22:19)
[2018-01-18] MEDS: NICOTINE POLACRILEX 2 MG GUM BUC PRN (14:21)
[2018-01-18] MEDS: MAGNESIUM HYDROX 2400MG/30ML ORAL SUSPENSION 30 ML CUP PO PRN (18:17)
[2018-01-18] MEDS: LIDOCAINE PATCH REMOVAL MC SCH (22:19)
[2018-01-18] MEDS: traZODone HCL 50 MG TABLET (FP) PO SCH (22:19)
[2018-01-18] MEDS: THIAMINE HCL 100 MG TABLET (FP) PO SCH (22:21)
[2018-01-18] MEDS: SUVOREXANT 10 MG TABLET PO PRN (22:23)
[2018-01-19] MEDS: AMITRIPTYLINE HCL 25 MG TABLET (FP) PO SCH ×3 (06:35→21:55)
[2018-01-19] MEDS: DOCUSATE SODIUM 100 MG CAPSULE (FP) PO SCH ×3 (06:35→21:56)
[2018-01-19] MEDS: GABAPENTIN 300 MG CAPSULE (FP) PO SCH ×3 (06:35→21:56)
[2018-01-19] MEDS: ONDANSETRON *ODT* 4 MG TABLET SL PRN (06:57)
[2018-01-19] MEDS ORDERED: BUPRENORPHINE HCL/NALOXONE 12 MG-3 MG SL FILM PACKET SL SCH ×3 (09:28→10:00)
[2018-01-19] MEDS ORDERED: BUPRENORPHINE HCL/NALOXONE 12 MG-3 MG SL FILM PACKET SL ONE (10:00)
[2018-01-19] MEDS: PRENATAL VITAMINS W/ FOLIC ACID TABLET (FP) PO SCH (10:35)
[2018-01-19] MEDS: LIDOCAINE 5% TOPICAL PATCH TP SCH (10:35)
[2018-01-19] MEDS: BACITRACIN 0.9 GM PACKET TP SCH (10:35)
[2018-01-19] MEDS: RANITIDINE HCL 150 MG TABLET (FP) PO SCH ×2 (10:35→21:56)
[2018-01-19] MEDS: NICOTINE 14 MG/24 HOURS TOPICAL PATCH TD SCH (10:36)
[2018-01-19] MEDS: hydrOXYzine PAMOATE 50 MG CAPSULE (FP) PO PRN ×2 (10:38→19:07)
[2018-01-19] MEDS: MAGNESIUM HYDROX 2400MG/30ML ORAL SUSPENSION 30 ML CUP PO PRN (19:07)
[2018-01-19] MEDS ORDERED: cloNIDine HCL 0.1 MG TABLET PO ONE (20:11)
[2018-01-19] MEDS: traZODone HCL 50 MG TABLET (FP) PO SCH (21:56)
[2018-01-19] MEDS: THIAMINE HCL 100 MG TABLET (FP) PO SCH (21:56)
[2018-01-19] MEDS: LIDOCAINE PATCH REMOVAL MC SCH (21:56)
[2018-01-19] MEDS: SUVOREXANT 10 MG TABLET PO PRN (21:58)
[2018-01-20] MEDS ORDERED: BUPRENORPHINE HCL/NALOXONE 12 MG-3 MG SL FILM PACKET SL SCH (06:00)
[2018-01-20] MEDS: GABAPENTIN 300 MG CAPSULE (FP) PO SCH ×3 (06:50→21:51)
[2018-01-20] MEDS: DOCUSATE SODIUM 100 MG CAPSULE (FP) PO SCH ×3 (06:50→21:50)
[2018-01-20] MEDS: AMITRIPTYLINE HCL 25 MG TABLET (FP) PO SCH ×3 (06:50→21:51)
[2018-01-20] MEDS: RANITIDINE HCL 150 MG TABLET (FP) PO SCH ×2 (10:53→21:51)
[2018-01-20] MEDS: NICOTINE 14 MG/24 HOURS TOPICAL PATCH TD SCH (10:54)
[2018-01-20] MEDS: BACITRACIN 0.9 GM PACKET TP SCH (10:54)
[2018-01-20] MEDS: PRENATAL VITAMINS W/ FOLIC ACID TABLET (FP) PO SCH (10:54)
[2018-01-20] MEDS: LIDOCAINE 5% TOPICAL PATCH TP SCH (10:54)
--- NOTE | 2018-01-20 11:13 | PN ---
S Progress Note (SOAP) Subjective: c/o opioid withdrawal, requesting increased dose, now on 12mg, constipation and nausea Objective: 01/20/18 11:11 Vital Signs - 24 hr 01/19/18 01/19/18 01/19/18 18:55 19:10 21:10 Temperature 100.3 F H 99.1 F Pulse Rate 74 76 Respiratory 18 Rate Blood Pressure 107/62 93/66 01/20/18 01/20/18 01/20/18 00:30 03:30 07:40 Temperature 97.4 F L Pulse Rate 65 Respiratory 16 16 18 Rate Blood Pressure 98/66 NAD, anxious Assessment: 01/20/18 11:12 OUD- protracted withdrawal sx on mat w suboxone will increaes dose to 16mg daily extra 4 mg now, ducolax ordered zofran prn
[2018-01-20] MEDS ORDERED: BUPRENORPHINE/NALOXONE 2 MG/0.5 MG FILM PACKET SL SCH (11:15)
[2018-01-20] MEDS ORDERED: BISACODYL 10 MG SUPP.RECT RC ONE (11:20)
[2018-01-20] MEDS ORDERED: BUPRENORPHINE/NALOXONE 2 MG/0.5 MG FILM PACKET SL ONE (13:20)
[2018-01-20] MEDS: NICOTINE POLACRILEX 2 MG GUM BUC PRN (13:21)
[2018-01-20] MEDS: SUVOREXANT 10 MG TABLET PO PRN (21:50)
[2018-01-20] MEDS: traZODone HCL 50 MG TABLET (FP) PO SCH (21:50)
[2018-01-20] MEDS: BISACODYL 10 MG SUPP.RECT RC PRN (21:50)
[2018-01-20] MEDS: THIAMINE HCL 100 MG TABLET (FP) PO SCH (21:51)
[2018-01-20] MEDS: LIDOCAINE PATCH REMOVAL MC SCH (21:52)
[2018-01-21] MEDS: AMITRIPTYLINE HCL 25 MG TABLET (FP) PO SCH ×3 (06:21→21:24)
[2018-01-21] MEDS: GABAPENTIN 300 MG CAPSULE (FP) PO SCH ×3 (06:21→21:24)
[2018-01-21] MEDS: DOCUSATE SODIUM 100 MG CAPSULE (FP) PO SCH ×3 (06:21→21:24)
[2018-01-21] MEDS: BISACODYL 10 MG SUPP.RECT RC PRN ×2 (06:37→15:14)
[2018-01-21] MEDS: BACITRACIN 0.9 GM PACKET TP SCH (09:30)
[2018-01-21] MEDS: NICOTINE 14 MG/24 HOURS TOPICAL PATCH TD SCH (09:30)
[2018-01-21] MEDS: LIDOCAINE 5% TOPICAL PATCH TP SCH (09:30)
[2018-01-21] MEDS: PRENATAL VITAMINS W/ FOLIC ACID TABLET (FP) PO SCH (09:31)
[2018-01-21] MEDS: RANITIDINE HCL 150 MG TABLET (FP) PO SCH ×2 (09:32→21:24)
[2018-01-21] MEDS: BUPRENORPHINE/NALOXONE 8 MG/2 MG FILM PACKET SL SCH (09:32)
[2018-01-21] MEDS: SUVOREXANT 10 MG TABLET PO PRN (21:24)
[2018-01-21] MEDS: LIDOCAINE PATCH REMOVAL MC SCH (21:24)
[2018-01-21] MEDS: THIAMINE HCL 100 MG TABLET (FP) PO SCH (21:24)
[2018-01-21] MEDS: traZODone HCL 50 MG TABLET (FP) PO SCH (21:24)
[2018-01-22] MEDS: DOCUSATE SODIUM 100 MG CAPSULE (FP) PO SCH ×3 (06:43→22:04)
[2018-01-22] MEDS: GABAPENTIN 300 MG CAPSULE (FP) PO SCH ×3 (06:43→22:04)
[2018-01-22] MEDS: AMITRIPTYLINE HCL 25 MG TABLET (FP) PO SCH ×3 (06:43→22:04)
[2018-01-22] MEDS: BISACODYL 10 MG SUPP.RECT RC PRN ×2 (06:44→13:47)
[2018-01-22] MEDS: PRENATAL VITAMINS W/ FOLIC ACID TABLET (FP) PO SCH (10:03)
[2018-01-22] MEDS: RANITIDINE HCL 150 MG TABLET (FP) PO SCH ×2 (10:04→22:04)
[2018-01-22] MEDS: BACITRACIN 0.9 GM PACKET TP SCH (10:04)
[2018-01-22] MEDS: LIDOCAINE 5% TOPICAL PATCH TP SCH (10:04)
[2018-01-22] MEDS: NICOTINE 14 MG/24 HOURS TOPICAL PATCH TD SCH (10:04)
[2018-01-22] MEDS: BUPRENORPHINE/NALOXONE 8 MG/2 MG FILM PACKET SL SCH (10:05)
[2018-01-22] MEDS: hydrOXYzine PAMOATE 50 MG CAPSULE (FP) PO PRN (10:06)
[2018-01-22] MEDS: traZODone HCL 50 MG TABLET (FP) PO SCH (22:04)
[2018-01-22] MEDS: THIAMINE HCL 100 MG TABLET (FP) PO SCH (22:04)
[2018-01-22] MEDS: SUVOREXANT 10 MG TABLET PO PRN (22:05)
[2018-01-22] MEDS: LIDOCAINE PATCH REMOVAL MC SCH (22:19)
[2018-01-23] MEDS: DOCUSATE SODIUM 100 MG CAPSULE (FP) PO SCH ×3 (06:38→21:53)
[2018-01-23] MEDS: GABAPENTIN 300 MG CAPSULE (FP) PO SCH ×3 (06:38→21:52)
[2018-01-23] MEDS: AMITRIPTYLINE HCL 25 MG TABLET (FP) PO SCH ×3 (06:38→21:53)
[2018-01-23] MEDS: BISACODYL 10 MG SUPP.RECT RC PRN (06:39)
[2018-01-23] MEDS: BACITRACIN 0.9 GM PACKET TP SCH (10:42)
[2018-01-23] MEDS: LIDOCAINE 5% TOPICAL PATCH TP SCH (10:42)
[2018-01-23] MEDS: NICOTINE 14 MG/24 HOURS TOPICAL PATCH TD SCH (10:42)
[2018-01-23] MEDS: PRENATAL VITAMINS W/ FOLIC ACID TABLET (FP) PO SCH (10:43)
[2018-01-23] MEDS: RANITIDINE HCL 150 MG TABLET (FP) PO SCH ×2 (10:43→21:52)
[2018-01-23] MEDS: BUPRENORPHINE/NALOXONE 8 MG/2 MG FILM PACKET SL SCH (10:44)
[2018-01-23] MEDS: ONDANSETRON *ODT* 4 MG TABLET SL PRN (13:27)
[2018-01-23] MEDS: THIAMINE HCL 100 MG TABLET (FP) PO SCH (21:52)
[2018-01-23] MEDS: traZODone HCL 50 MG TABLET (FP) PO SCH (21:52)
[2018-01-23] MEDS: SUVOREXANT 10 MG TABLET PO PRN (21:53)
[2018-01-23] MEDS: LIDOCAINE PATCH REMOVAL MC SCH (21:54)
[2018-01-24] MEDS: DOCUSATE SODIUM 100 MG CAPSULE (FP) PO SCH ×3 (06:41→21:59)
[2018-01-24] MEDS: GABAPENTIN 300 MG CAPSULE (FP) PO SCH ×3 (06:41→22:00)
[2018-01-24] MEDS: AMITRIPTYLINE HCL 25 MG TABLET (FP) PO SCH ×3 (06:41→22:00)
[2018-01-24] MEDS ORDERED: PT OWN MED DRAWER 7, Y5N ONE (06:44)
[2018-01-24] MEDS: ALBUTEROL SO4 18 GM HFA INHALER IH PRN (06:45)
[2018-01-24] MEDS: BISACODYL 10 MG SUPP.RECT RC PRN ×2 (06:45→18:37)
[2018-01-24] MEDS: RANITIDINE HCL 150 MG TABLET (FP) PO SCH ×2 (10:38→22:00)
[2018-01-24] MEDS: BACITRACIN 0.9 GM PACKET TP SCH (10:38)
[2018-01-24] MEDS: NICOTINE 14 MG/24 HOURS TOPICAL PATCH TD SCH (10:38)
[2018-01-24] MEDS: PRENATAL VITAMINS W/ FOLIC ACID TABLET (FP) PO SCH (10:38)
[2018-01-24] MEDS: LIDOCAINE 5% TOPICAL PATCH TP SCH (10:38)
[2018-01-24] MEDS: BUPRENORPHINE/NALOXONE 8 MG/2 MG FILM PACKET SL SCH (10:39)
[2018-01-24] MEDS ORDERED: NICOTINE POLACRILEX 4 MG GUM BUC PRN (16:06)
--- NOTE | 2018-01-24 16:07 | PN ---
[facility] Progress Note (SOAP) Subjective: c/o constipation and would like increaswe in nicotien gum Objective: 01/24/18 16:07 Vital Signs - 24 hr 01/24/18 01/24/18 00:30 06:30 Temperature 97.8 F Pulse Rate 71 Respiratory 16 18 Rate Blood Pressure 110/68 Laboratory Tests 01/18/18 06:00 Sodium 136 Potassium 4.5 Chloride 100 Carbon Dioxide 27 Anion Gap 9 BUN 15 Creatinine 0.5 L Random Glucose 76 Calcium 8.5 labs reviewed Assessment: 01/24/18 16:07 miroalax and increase nicotien
[2018-01-24] MEDS: NICOTINE 21 MG/24 HOURS TOPICAL PATCH TD SCH (17:35)
[2018-01-24] MEDS: traZODone HCL 50 MG TABLET (FP) PO SCH (22:00)
[2018-01-24] MEDS: THIAMINE HCL 100 MG TABLET (FP) PO SCH (22:00)
[2018-01-24] MEDS: POLYETHYLENE GLYCOL 3350 119 GM BTL PO SCH (22:02)
[2018-01-24] MEDS: LIDOCAINE PATCH REMOVAL MC SCH (22:03)
[2018-01-25] MEDS ORDERED: BUPRENORPHINE/NALOXONE 8 MG/2 MG FILM PACKET SL SCH (06:00)
[2018-01-25] MEDS: AMITRIPTYLINE HCL 25 MG TABLET (FP) PO SCH ×3 (06:34→22:11)
[2018-01-25] MEDS: GABAPENTIN 300 MG CAPSULE (FP) PO SCH ×3 (06:34→22:11)
[2018-01-25] MEDS: DOCUSATE SODIUM 100 MG CAPSULE (FP) PO SCH ×3 (06:34→22:11)
[2018-01-25 07:14] VITALS: TEMP 97.7
[2018-01-25] MEDS: BACITRACIN 0.9 GM PACKET TP SCH (10:27)
[2018-01-25] MEDS: PRENATAL VITAMINS W/ FOLIC ACID TABLET (FP) PO SCH (10:27)
[2018-01-25] MEDS: RANITIDINE HCL 150 MG TABLET (FP) PO SCH ×2 (10:28→22:11)
[2018-01-25] MEDS: NICOTINE 21 MG/24 HOURS TOPICAL PATCH TD SCH (10:28)
[2018-01-25] MEDS: POLYETHYLENE GLYCOL 3350 119 GM BTL PO SCH (10:29)
[2018-01-25] MEDS: LIDOCAINE 5% TOPICAL PATCH TP SCH (10:29)
[2018-01-25] MEDS: ALBUTEROL SO4 18 GM HFA INHALER IH PRN (10:31)
[2018-01-25] MEDS ORDERED: PT OWN MED DRAWER 7, Y5N ONE (10:31)
--- NOTE | 2018-01-25 12:29 | PN ---
Psychiatric Progress Note Vital Signs: Vital Signs Period Temp Pulse Resp BP Sys/Mayers Pulse Ox Last 24 Hr 97.7 F 73 16-18 101/68 Date of Session: 01/25/18 Chief Complaint:: Discharge visit HPI: Patient addressed Opioid,Anxiolytic dependence comorbid with Substance induced mood/sleep disorder. ROS: Seizure disorder,BA,Chron"s disease. Current Medications: Active Medications Generic Name Dose Route Start Last Admin Trade Name Freq PRN Reason Stop Dose Admin Acetaminophen 650 mg 01/17/18 13:22 01/19/18 19:06 Tylenol - PO 650 mg Q4H PRN Administration FEVER Al Hydroxide/Mg Hydroxide 30 ml 01/17/18 13:22 01/19/18 06:57 Mylanta Oral Suspension - PO 30 ml Q6H PRN Administration DYSPEPSIA Albuterol Sulfate 2 puff 01/17/18 15:01 01/25/18 10:31 Ventolin Hfa Inhaler - IH 2 inh Q4H PRN Administration ASTHMA Amitriptyline HCl 25 mg 01/18/18 14:00 01/25/18 06:34 Elavil - PO 25 mg TID CHANO Administration Bacitracin 0.9 gm 01/17/18 14:00 01/25/18 10:27 Bacitracin - TP 0.9 gm DAILY CHANO Administration Bisacodyl 10 mg 01/20/18 11:09 01/24/18 18:37 Dulcolax Suppository - RC 10 mg PRN PRN Administration CONSTIPATION Buprenorphine/Naloxone 2 each 01/26/18 06:00 Suboxone 8mg/2mg Sl Film - SL 01/27/18 09:59 DAILY@0600 CHANO Colloidal Oatmeal 1 applic 01/17/18 17:41 Aveeno Soap - TP DAILY PRN HYGEINE Docusate Sodium 100 mg 01/17/18 14:00 01/25/18 06:34 Colace - PO 100 mg TID CHANO Administration Eucalyptus/Menthol/Phenol/Sorbitol 1 each 01/17/18 13:22 Cepastat Lozenge - MM Q4H PRN SORE THROAT Gabapentin 300 mg 01/17/18 14:00 01/25/18 06:34 Neurontin - PO 300 mg TID CHANO Administration Guaifenesin 10 ml 01/17/18 13:22 Robitussin Dm - PO Q6H PRN COUGH Hydroxyzine Pamoate 50 mg 01/17/18 13:22 01/22/18 10:06 Vistaril - PO 50 mg Q4H PRN Administration AGITATION Ibuprofen 400 mg 01/17/18 13:22 Motrin - PO Q6H PRN Pain Level 4-6 Lidocaine 1 patch 01/18/18 10:00 01/25/18 10:29 Lidoderm Patch - TP 1 patch DAILY CHANO Administration Loperamide HCl 4 mg 01/17/18 13:22 Imodium - PO Q6H PRN DIARRHEA Magnesium Citrate 300 ml 01/17/18 13:22 Citroma - PO Q48H PRN CONSTIPATION Magnesium Hydroxide 30 ml 01/17/18 13:22 01/19/18 19:07 Milk Of Magnesia - PO 30 ml DAILY PRN Administration CONSTIPATION Miscellaneous 1 each 01/17/18 22:00 01/24/18 22:03 Lidoderm Patch Removal MC Not Given DAILY@2200 CHANO Nicotine 21 mg 01/24/18 16:45 01/25/18 10:28 Nicoderm Patch - TD 21 mg DAILY CHANO Administration Nicotine Polacrilex 4 mg 01/24/18 16:06 Nicorette Gum - BUC Q2H PRN NICOTINE REPLACEMENT RX Ondansetron HCl 8 mg 01/18/18 12:40 01/23/18 13:27 Zofran Odt - SL 8 mg Q6H PRN Administration NAUSEA AND/OR VOMITING Polyethylene Glycol 17 gm 01/24/18 16:45 01/25/18 10:29 Miralax (For Daily Use) - PO 17 gm DAILY CHANO Administration Multivit/Folic Acid/Iron 1 tab 01/18/18 10:00 01/25/18 10:27 Vitamins (Sjr) - PO 1 tab DAILY CHANO Administration Pseudoephedrine/Triprolidine 1 combo 01/17/18 13:22 Actifed - PO TID PRN NASAL CONGESTION Ranitidine HCl 150 mg 01/17/18 22:00 01/25/18 10:28 Zantac - PO 150 mg BID CHANO Administration Thiamine HCl 100 mg 01/17/18 22:00 01/24/18 22:00 Vitamin B1 - PO 100 mg HS CHANO Administration Trazodone HCl 150 mg 01/17/18 23:15 01/24/18 22:00 Desyrel - PO 150 mg HS CHANO Administration Current Side Effect: No Lab tests ordered: No Lab tests reviewed: Yes Provider note:: Patient will complete this program tomorrow 01/26/18.She has met her treatment goals and will continue to address her issues on outpatient basis at [facility].Patient reports finding that current medications: Neurontin 300 mg po tid,Trazodone 150 mg po hs help to cope with sleeping difficulties,mood instability.Scripts for 30 days provided. Supportive therapy provided focusing on relapse prevention.PAtient identifies areas of difficulties and ways ,resourses she can utilize to maintain recovery. Patient is stable for discharge tomorrow. Total face to face time:: 30 Mental Status Exam - Mental Status Exam Alert and Oriented to: Time, Place, Person Cognitive Function: Grossly Intact Patient Appearance: Well Groomed Mood: Euthymic Affect: Mood Congruent Patient Behavior: Cooperative Speech Pattern: Clear Voice Loudness: Normal Thought Process: Goal Oriented Thought Disorder: Not Present Hallucinations: Denies Suicidal Ideation: Denies Homicidal Ideation: Denies Insight/Judgement: Fair Sleep: Fair Appetite: Good Muscle strength/Tone: Normal Gait/Station: Normal Psychiatric Treatment Plan - Problem List (3) Nicotine dependence Qualifiers: Nicotine product type: cigarettes Substance use status: in withdrawal Qualified Code(s): F17.213 - Nicotine dependence, cigarettes, with withdrawal (6) Asthma Qualifiers: Asthma severity: mild Asthma complication type: with status asthmaticus (7) Crohns disease Qualifiers:
[2018-01-25] MEDS: traZODone HCL 50 MG TABLET (FP) PO SCH (22:11)
[2018-01-25] MEDS: SUVOREXANT 10 MG TABLET PO PRN (22:12)
[2018-01-25] MEDS: LIDOCAINE PATCH REMOVAL MC SCH (22:12)
[2018-01-25] MEDS: THIAMINE HCL 100 MG TABLET (FP) PO SCH (22:13)
[2018-01-26] MEDS ORDERED: BUPRENORPHINE/NALOXONE 8 MG/2 MG FILM PACKET SL SCH (06:00)
[2018-01-26] MEDS: GABAPENTIN 300 MG CAPSULE (FP) PO SCH (06:39)
[2018-01-26] MEDS: AMITRIPTYLINE HCL 25 MG TABLET (FP) PO SCH (06:39)
[2018-01-26] MEDS: DOCUSATE SODIUM 100 MG CAPSULE (FP) PO SCH (06:39)
[2018-01-26 07:46] VITALS: BP 99/65; PULSE 86
[2018-01-26] MEDS: PRENATAL VITAMINS W/ FOLIC ACID TABLET (FP) PO SCH (09:22)
[2018-01-26] MEDS: NICOTINE 21 MG/24 HOURS TOPICAL PATCH TD SCH (09:22)
[2018-01-26] MEDS: RANITIDINE HCL 150 MG TABLET (FP) PO SCH (09:22)
[2018-01-26] MEDS: LIDOCAINE 5% TOPICAL PATCH TP SCH (09:23)
[2018-01-26] MEDS: POLYETHYLENE GLYCOL 3350 119 GM BTL PO SCH (09:23)
[2018-01-26] MEDS: hydrOXYzine PAMOATE 50 MG CAPSULE (FP) PO PRN (09:24)
[2018-01-26] MEDS: BACITRACIN 0.9 GM PACKET TP SCH (10:05)
== END 2018-01-26 10:06 | disposition home or self-care (01) | DRG 772 ==
LOC: YASAS 12:20 → Y3E 12:22
PROVIDERS: ADMIT Psychiatry & Neurology Psychiatry; ATTEND Psychiatry & Neurology Psychiatry
PROC: HZ42ZZZ Group Counseling for Substance Abuse Treatment, Cognitive-Behavioral (ICD-10-PCS; principal; 2018-01-17)
DX: F11.20 Opioid dependence, uncomplicated (principal); F13.230 Sedative, hypnotic or anxiolytic dependence with withdrawal, uncomplicated; F17.210 Nicotine dependence, cigarettes, uncomplicated; F19.280 Other psychoactive substance dependence with psychoactive substance-induced anxiety disorder; F19.24 Other psychoactive substance dependence with psychoactive substance-induced mood disorder; J45.22 Mild intermittent asthma with status asthmaticus; D64.9 Anemia, unspecified; R56.9 Unspecified convulsions; K50.90 Crohn's disease, unspecified, without complications
CPT/HCPCS: 36415; 80048; J0735; Q0162